=== PATIENT | female | born 1995 | race African-American/Black ===

== ENCOUNTER 2016-08-19 22:11 | Emergency (ER) | payer MEDICAID ==
[2016-08-20 01:11] LABS: ABSOLUTE BASOPHILS # (AUTO) 0.1 10^3/uL (0.0-0.2); ABSOLUTE EOSINOPHILS # (AUTO) 0.4 10^3/uL (0.0-0.6); ABSOLUTE LYMPHOCYTES (AUTO) 3.3 10^3/uL (0.5-4.7); ABSOLUTE MONOCYTES (AUTO) 0.6 10^3/uL (0.1-1.4); ABSOLUTE NEUT (AUTO) 4.1 10^3/uL (1.7-8.2); BASOPHILS % (AUTO) 1.1 % (0-2); EOSINOPHILS % (AUTO) 4.7 % (0-6); HEMATOCRIT 43.5 % (36.0-47.0); HEMOGLOBIN 14.3 g/dL (12.0-15.5); HGB HCT DIFFERENCE -0.6; LYMPHOCYTES % (AUTO) 39.2 % (13-45); MEAN CORPUSCULAR HEMOGLOBIN 28.1 pg (27.0-33.4); MEAN CORPUSCULAR HGB CONC 32.7 g/dL (32.0-36.0); MEAN CORPUSCULAR VOLUME 86 fl (80-97); MONOCYTES % (AUTO) 6.7 % (3-13); RED BLOOD COUNT 5.07 10^6/uL (3.72-5.28); RED CELL DISTRIBUTION WIDTH 13.1 % (11.5-14.0); SEGMENTED NEUTROPHILS % (AUTO) 48.3 % (42-78); WHITE BLOOD COUNT 8.5 10^3/uL (4.0-10.5)
[2016-08-20 01:29] LABS: BILIRUBIN,URINE NEGATIVE (NEGATIVE); GLUCOSE, URINE NEGATIVE (NEGATIVE); KETONES,URINE NEGATIVE (NEGATIVE); LEUKOCYTE ESTERASE,URINE SMALL (NEGATIVE); NITRITE,URINE NEGATIVE (NEGATIVE); PROTEIN,URINE NEGATIVE (NEGATIVE); UROBILINOGEN,URINE NEGATIVE mg/dL (<2.0)
[2016-08-20 01:30] LABS: APPEARANCE,URINE HAZY; URINE SPECIFIC GRAVITY 1.019
--- NOTE | 2016-08-20 04:52 | ER Document Report ---
ED GI/ - General Mode of Arrival: Ambulatory Information source: Patient TRAVEL OUTSIDE OF THE [place] IN LAST 30 DAYS: No - HPI Patient complains to provider of: Abdominal pain Associated symptoms: Other - See above <NIGEL MEYER - Last Filed: 08/20/16 04:59> <CHRYSTALJULIET JORGE - Last Filed: 08/20/16 05:47> - General Chief Complaint: Abdominal Pain Stated Complaint: ABDOMINAL PAIN Notes: Patient is a 20 year old female, 5 weeks , who presents to the emergency department complaining of abdominal pain. Patient also reports vaginal bleeding. Patient states she has had a tubal on her left side which she took Trexall for. Patient only recently found out that she was . (NIGEL MEYER) - Related Data Allergies/Adverse Reactions: promethazine [From Phenergan] Allergy (Verified 03/26/16 03:06) Past Medical History - General Information source: Patient - Social History Smoking Status: Unknown if Ever Smoked Family History: Reviewed & Not Pertinent Patient has suicidal ideation: No Patient has homicidal ideation: No - Past Medical History Cardiac Medical History: Reports: Hx Hypertension - GESTATIONAL Neurological Medical History: Reports: Hx Migraine GI Medical History: Reports: Hx Gastroesophageal Reflux Disease Psychiatric Medical History: Reports: Hx Depression Past Surgical History: Reports: Hx Appendectomy - 2009 - Immunizations Immunizations up to date: Yes Hx Diphtheria, Pertussis, Tetanus Vaccination: No <NIGEL MEYER - Last Filed: 08/20/16 04:59> Review of Systems - Review of Systems Constitutional: No symptoms reported EENT: No symptoms reported Cardiovascular: No symptoms reported Respiratory: No symptoms reported Gastrointestinal: See HPI, Abdominal pain Genitourinary: No symptoms reported Female Genitourinary: See HPI, Vaginal bleeding Musculoskeletal: No symptoms reported Skin: No symptoms reported Hematologic/Lymphatic: No symptoms reported Neurological/Psychological: No symptoms reported -: Yes All other systems reviewed and negative <NIGEL MEYER - Last Filed: 08/20/16 04:59> Physical Exam - Vital signs Interpretation: Normal - General General appearance: Appears well, Alert - HEENT Head: Normocephalic, Atraumatic - Respiratory Respiratory status: No respiratory distress Chest status: Nontender Breath sounds: Normal Chest palpation: Normal - Cardiovascular Rhythm: Regular Heart sounds: Normal auscultation Murmur: No - Abdominal Inspection: Normal Distension: No distension Bowel sounds: Normal Tenderness: Tender - Suprapubic tenderness to palpation Organomegaly: No organomegaly - Extremities General upper extremity: Normal inspection General lower extremity: Normal inspection - Neurological Neuro grossly intact: Yes Cognition: Normal Orientation: AAOx4 [place] Coma Scale Eye Opening: Spontaneous [place] Coma Scale Verbal: Oriented [place] Coma Scale Motor: Obeys Commands Veda Coma Scale Total: 15 Speech: Normal - Psychological Associated symptoms: Normal affect, Normal mood - Skin Skin Temperature: Warm Skin Moisture: Dry Skin Color: Normal <NIGEL MEYER - Last Filed: 08/20/16 04:59> Course - Laboratory Result Diagrams: 08/20/16 00:53 <NIGEL MEYER - Last Filed: 08/20/16 04:59> - Laboratory Result Diagrams: 08/20/16 00:53 - Diagnostic Test Radiology reviewed: Reports reviewed <JULIET JARRELL - Last Filed: 08/20/16 05:47> - Re-evaluation Re-evalutation: 08/20/16 Patient with intrauterine at 5 weeks and 1 day. Patient with no pain or bleeding at this time. Vitals are stable. Follow-up with [facility]. Return if any worsening or concerning symptoms. (JULIET JARRELL) - Vital Signs Vital signs: Temp Pulse Resp BP Pulse Ox 98.7 F 62 14 122/62 100 08/20/16 05:32 08/20/16 05:32 08/20/16 05:32 08/20/16 05:32 08/20/16 05:32 (NIGEL MEYER) (JULIET JARRELL) - Laboratory Laboratory results interpreted by me: 08/20/16 08/20/16 00:53 00:53 Beta HCG, Quant 1467.60 H Ur Leukocyte Esterase SMALL H Urine Ascorbic Acid 40 H (NIGEL MEYER) (JULIET JARRELL) Discharge <NIGEL MEYER - Last Filed: 08/20/16 04:59> <JULIET JARRELL - Last Filed: 08/20/16 05:47> - Discharge Clinical Impression: Qualifiers: Weeks of gestation: less than 8 weeks Qualified Code(s): Z3A.01 - Less than 8 weeks gestation of Condition: Stable Disposition: HOME, SELF-CARE Instructions: ([facility]), Pelvic Pain in ([facility]) Scribe Attestation: 08/20/16 05:46 I personally performed the services described in the documentation, reviewed and edited the documentation which was dictated to the scribe in my presence, and it accurately records my words and actions. (JULIET JARRELL) Scribe Documentation - Scribe Written by Prashant:: prashant Mallory, 08/20/16, 0503 acting as scribe for :: Chrystal <NIGEL MEYER - Last Filed: 08/20/16 04:59>
[2016-08-20 05:32] VITALS: BP 122/62
== END 2016-08-20 05:31 | disposition home or self-care (01) ==
LOC: ER 22:11
DX: O26.91 Pregnancy related conditions, unspecified, first trimester (principal); R10.9 Unspecified abdominal pain; Z3A.01 Less than 8 weeks gestation of pregnancy
CPT/HCPCS: 36415; 76817; 81001; 84702; 85025; 86900; 86901; 93976; 99284

== ENCOUNTER 2016-08-28 20:26 | Emergency (ER) | payer MEDICAID ==
[2016-08-28] MEDS ORDERED: IBUPROFEN 800 MG TABLET PO ONE (21:10)
[2016-08-28] MEDS ORDERED: ONDANSETRON 4 MG TAB.RAPDIS PO ONE (21:10)
--- NOTE | 2016-08-28 21:12 | ER Document Report ---
ED Medical Screen (RME) - General Stated Complaint: COUGH,SORE THROAT Mode of Arrival: Wheelchair Information source: Patient Notes: Patient presents actively vomiting. She reports body aches vomiting for the past 3 days. also complains a sore throat and feels like she's having trouble breathing. Respiratory rate even and unlabored. She reports she's been able to drink apple juice. Did not receive flu vaccine. TRAVEL OUTSIDE OF THE [place] IN LAST 30 DAYS: No - Related Data Allergies/Adverse Reactions: promethazine [From Phenergan] Allergy (Verified 08/28/16 21:13) Past Medical History - Past Medical History Cardiac Medical History: Reports: Hx Hypertension - GESTATIONAL Neurological Medical History: Reports: Hx Migraine Renal/ Medical History: Denies: Hx Peritoneal Dialysis GI Medical History: Reports: Hx Gastroesophageal Reflux Disease Psychiatric Medical History: Reports: Hx Depression Past Surgical History: Reports: Hx Appendectomy - 2009 - Immunizations Immunizations up to date: Yes Hx Diphtheria, Pertussis, Tetanus Vaccination: No Physical Exam - Vital signs Vitals: Temp Pulse Resp BP Pulse Ox 99.2 F 100 16 122/62 98 08/28/16 21:11 08/28/16 21:11 08/28/16 21:11 08/28/16 21:11 08/28/16 21:11 Course - Vital Signs Vital signs: Temp Pulse Resp BP Pulse Ox 99.2 F 100 16 122/62 98 08/28/16 21:11 08/28/16 21:11 08/28/16 21:11 08/28/16 21:11 08/28/16 21:11
[2016-08-28 21:43] LABS: ABSOLUTE LYMPHOCYTES (AUTO) 0.5 10^3/uL (0.5-4.7); ABSOLUTE MONOCYTES (AUTO) 0.7 10^3/uL (0.1-1.4); ABSOLUTE NEUT (AUTO) 6.7 10^3/uL (1.7-8.2); BASOPHILS % (AUTO) 0.5 % (0-2); EOSINOPHILS % (AUTO) 0.5 % (0-6); HEMATOCRIT 42.8 % (36.0-47.0); HEMOGLOBIN 14.5 g/dL (12.0-15.5); HGB HCT DIFFERENCE 0.7; LYMPHOCYTES % (AUTO) 6.8 % (13-45); MEAN CORPUSCULAR HEMOGLOBIN 28.7 pg (27.0-33.4); MEAN CORPUSCULAR HGB CONC 33.8 g/dL (32.0-36.0); MEAN CORPUSCULAR VOLUME 85 fl (80-97); MONOCYTES % (AUTO) 8.3 % (3-13); RED BLOOD COUNT 5.04 10^6/uL (3.72-5.28); RED CELL DISTRIBUTION WIDTH 13.2 % (11.5-14.0); SEGMENTED NEUTROPHILS % (AUTO) 83.9 % (42-78); WHITE BLOOD COUNT 7.9 10^3/uL (4.0-10.5)
[2016-08-28 22:04] LABS: ALANINE AMINOTRANSFERASE 22 U/L (9-52); ALBUMIN 4.8 g/dL (3.5-5.0); ALKALINE PHOSPHATASE 95 U/L (38-126); ANION GAP 18 (5-19); ASPARTATE AMINO TRANSFERASE 23 U/L (14-36); BILIRUBIN,TOTAL 0.6 mg/dL (0.2-1.3); BLOOD UREA NITROGEN 8 mg/dL (7-20); CALCIUM 10.5 mg/dL (8.4-10.2); CARBON DIOXIDE 18 mmol/L (22-30); CHLORIDE 103 mmol/L (98-107); CREATININE RESULT 0.94 mg/dL (0.52-1.25); GLUCOSE 117 mg/dL (75-110); POTASSIUM 3.8 mmol/L (3.6-5.0); SODIUM 139.1 mmol/L (137-145); TOTAL PROTEIN 7.9 g/dL (6.3-8.2)
--- NOTE | 2016-08-29 00:53 | ER Document Report ---
ED General - General Chief Complaint: Flu Symptoms Stated Complaint: COUGH,SORE THROAT Mode of Arrival: Wheelchair Notes: Patient is a 20-year-old female currently approximately 6 weeks who presents with 2 days of fever, cough, nausea and vomiting. She is here with her child who has the same symptoms. The patient did not receive a flu vaccine this year. Denies history of similar symptoms in the past. Has been able to tolerate oral intake. Denies that anything improves or worsens or symptoms. She has not seen her primary care doctor regarding today's concerns. Denies any vaginal bleeding, discharge or dysuria. TRAVEL OUTSIDE OF THE [place] IN LAST 30 DAYS: No - Related Data Allergies/Adverse Reactions: promethazine [From Phenergan] Allergy (Verified 08/28/16 21:13) Past Medical History - General Information source: Patient - Social History Smoking Status: Never Smoker Chew tobacco use (# tins/day): No Frequency of alcohol use: None Drug Abuse: None Lives with: Family Family History: Reviewed & Not Pertinent Patient has suicidal ideation: No Patient has homicidal ideation: No - Past Medical History Cardiac Medical History: Reports: Hx Hypertension - GESTATIONAL Neurological Medical History: Reports: Hx Migraine Renal/ Medical History: Denies: Hx Peritoneal Dialysis GI Medical History: Reports: Hx Gastroesophageal Reflux Disease Psychiatric Medical History: Reports: Hx Depression Past Surgical History: Reports: Hx Appendectomy - 2010 - Immunizations Immunizations up to date: Yes Hx Diphtheria, Pertussis, Tetanus Vaccination: No Review of Systems - Review of Systems Notes: Constitutional: Positive for fever. HENT: Positive for sore throat. Eyes: Negative for visual changes. Cardiovascular: Negative for chest pain. Respiratory: Negative for shortness of breath. Positive for cough Gastrointestinal: Negative for abdominal pain, positive for vomiting Genitourinary: Negative for dysuria. Musculoskeletal: Negative for back pain. Skin: Negative for rash. Neurological: Negative for headaches, weakness or numbness. 10 point ROS negative except as marked above and in HPI. Physical Exam - Vital signs Vitals: Temp Pulse Resp BP Pulse Ox 99.2 F 100 16 122/62 98 08/28/16 21:11 08/28/16 21:11 08/28/16 21:11 08/28/16 21:11 08/28/16 21:11 Interpretation: Normal Notes: PHYSICAL EXAMINATION: GENERAL: Well-appearing, well-nourished and in no acute distress. HEAD: Atraumatic, normocephalic. EYES: Pupils equal round and reactive to light, extraocular movements intact, sclera anicteric, conjunctiva are normal. ENT: nares patent, oropharynx clear without exudates. Moist mucous membranes. NECK: Normal range of motion, supple without lymphadenopathy LUNGS: Breath sounds clear to auscultation bilaterally and equal. No wheezes rales or rhonchi. HEART: Regular rate and rhythm without murmurs ABDOMEN: Soft, nontender, normoactive bowel sounds. No guarding, no rebound. No masses appreciated. EXTREMITIES: Normal range of motion, no pitting or edema. No cyanosis. NEUROLOGICAL: No focal neurological deficits. Moves all extremities spontaneously and on command. PSYCH: Normal mood, normal affect. SKIN: Warm, Dry, normal turgor, no rashes or lesions noted. Course - Re-evaluation Re-evalutation: 08/29/16 00:52 Patient presents with cough, vomiting, diarrhea, and fever at home consistent with a diagnosis of influenza. Influenza testing is positive. Patient is overall well in appearance, in no acute distress. She is in the early stages of but denies any ongoing abdominal pain, vaginal bleeding or discharge. Lung sounds clear. Able to tolerate oral intake without difficulty here in the emergency department. After risks and benefits conversation with the patient regarding the use of Tamiflu, they have elected to use supportive care without Tamiflu based on concerns about lack of efficacy as well as the side effect profile. At this time will discharge with return precautions and follow-up recommendations. Verbal discharge instructions given a the bedside and opportunity for questions given. Medication warnings reviewed. Patient is in agreement with this plan and has verbalized understanding of return precautions and the need for primary care follow-up in the next 24-72 hours. - Vital Signs Vital signs: Temp Pulse Resp BP Pulse Ox 99 F 89 18 104/56 L 96 08/29/16 02:35 08/29/16 02:35 08/29/16 02:35 08/29/16 02:35 08/29/16 02:35 - Laboratory Result Diagrams: 08/28/16 21:25 08/28/16 21:25 Laboratory results interpreted by me: 08/28/16 08/28/16 08/28/16 21:25 21:25 21:25 Seg Neutrophils % 83.9 H Lymphocytes % 6.8 L Carbon Dioxide 18 L Glucose 117 H Calcium 10.5 H Serum HCG, Qual POSITIVE H - Diagnostic Test Radiology reviewed: Image reviewed, Reports reviewed Radiology results interpreted by me: 08/29/16 02:56 Chest x-ray: No acute infiltrate Discharge - Discharge Clinical Impression: Influenza Condition: Good Disposition: HOME, SELF-CARE Additional Instructions: You have influenza. There is no treatment that is effective for this diagnosis other than supportive care at home. This includes drinking plenty of fluids, using Tylenol or ibuprofen as needed for fever and discomfort, and Zofran as needed for nausea and vomiting. Please follow closely with you primary care physician the next 1-2 days regarding this diagnosis. Return to the emergency department immediately if you began to have persistent vomiting prevents you from being able to keep fluids down for more than 12 hours, you pass out, you began having difficulty breathing, you become confused, or you have any other symptoms that are worrisome to you. Referrals: ALEJO ZULETA MD [Primary Care Provider] - Follow up as needed
[2016-08-29] MEDS ORDERED: ONDANSETRON ODT 4 MG TAB (6 TAB/DSPK) PO PRN (02:14)
[2016-08-29 02:42] VITALS: BP 104/56
== END 2016-08-29 02:42 | disposition home or self-care (01) ==
LOC: ER 20:26
DX: O99.519 Diseases of the respiratory system complicating pregnancy, unspecified trimester (principal); J11.1 Influenza due to unidentified influenza virus with other respiratory manifestations; O26.899 Other specified pregnancy related conditions, unspecified trimester; R05 Cough; R19.7 Diarrhea, unspecified; R50.9 Fever, unspecified; O21.9 Vomiting of pregnancy, unspecified; Z3A.00 Weeks of gestation of pregnancy not specified; Z88.8 Allergy status to other drugs, medicaments and biological substances
CPT/HCPCS: 99283; 36415; 87070; 87880; 84703; 85025; 80053; 87804; 71020; S0119

== ENCOUNTER 2016-08-31 22:15 | Emergency (ER) | payer MEDICAID ==
[2016-09-01 00:20] LABS: ABSOLUTE EOSINOPHILS # (AUTO) 0.1 10^3/uL (0.0-0.6); ABSOLUTE LYMPHOCYTES (AUTO) 1.6 10^3/uL (0.5-4.7); ABSOLUTE MONOCYTES (AUTO) 0.7 10^3/uL (0.1-1.4); ABSOLUTE NEUT (AUTO) 2.5 10^3/uL (1.7-8.2); BASOPHILS % (AUTO) 0.9 % (0-2); EOSINOPHILS % (AUTO) 1.2 % (0-6); HEMATOCRIT 41.5 % (36.0-47.0); HEMOGLOBIN 13.7 g/dL (12.0-15.5); HGB HCT DIFFERENCE -0.4; LYMPHOCYTES % (AUTO) 32.6 % (13-45); MEAN CORPUSCULAR HEMOGLOBIN 28.2 pg (27.0-33.4); MEAN CORPUSCULAR HGB CONC 33.1 g/dL (32.0-36.0); MEAN CORPUSCULAR VOLUME 85 fl (80-97); MONOCYTES % (AUTO) 14.2 % (3-13); RED BLOOD COUNT 4.88 10^6/uL (3.72-5.28); SEGMENTED NEUTROPHILS % (AUTO) 51.1 % (42-78)
[2016-09-01 00:50] LABS: ALANINE AMINOTRANSFERASE 28 U/L (9-52); ALBUMIN 4.3 g/dL (3.5-5.0); ALKALINE PHOSPHATASE 81 U/L (38-126); ANION GAP 15 (5-19); ASPARTATE AMINO TRANSFERASE 26 U/L (14-36); BILIRUBIN,TOTAL 0.3 mg/dL (0.2-1.3); BLOOD UREA NITROGEN 5 mg/dL (7-20); CALCIUM 9.5 mg/dL (8.4-10.2); CARBON DIOXIDE 22 mmol/L (22-30); CHLORIDE 100 mmol/L (98-107); CREATININE RESULT 0.97 mg/dL (0.52-1.25); GLUCOSE 90 mg/dL (75-110); POTASSIUM 3.8 mmol/L (3.6-5.0); SODIUM 137.1 mmol/L (137-145); TOTAL PROTEIN 7.2 g/dL (6.3-8.2)
[2016-09-01] MEDS ORDERED: NORMAL SALINE 1000 ML 1,000 ML IV ONE ×2 (00:57→02:53)
[2016-09-01] MEDS ORDERED: ACETAMINOPHEN 325 MG TABLET PO ONE (00:58)
--- NOTE | 2016-09-01 01:02 | ER Document Report ---
ED Flu Like - General Chief Complaint: Flu Symptoms Stated Complaint: FEVER, WEAKNESS Notes: Patient is a 20-year-old female that comes emergency department for chief complaint of cough, body aches, sore throat, fevers. Symptoms started at approximately Saturday of this week, she was seen on Saturday and diagnosed with influenza. She states she is dehydrated and has had little to drink today, she is almost out of Zofran that she was taking at home, she states that when she coughs her belly hurts, she states her worst symptom is her dry cough and body pain. She denies any vaginal bleeding. Patient is 6 weeks , patient denies any daily medications other than [id number] medication and Zofran. TRAVEL OUTSIDE OF THE [place] IN LAST 30 DAYS: No - Related Data Allergies/Adverse Reactions: promethazine [From Phenergan] Allergy (Verified 08/31/16 23:18) Past Medical History - General Information source: Patient - Social History Smoking Status: Former Smoker Frequency of alcohol use: None Drug Abuse: None Lives with: Family Family History: Reviewed & Not Pertinent - Past Medical History Cardiac Medical History: Reports: Hx Hypertension - GESTATIONAL Neurological Medical History: Reports: Hx Migraine Renal/ Medical History: Denies: Hx Peritoneal Dialysis GI Medical History: Reports: Hx Gastroesophageal Reflux Disease Psychiatric Medical History: Reports: Hx Depression Past Surgical History: Reports: Hx Appendectomy - 2010 - Immunizations Immunizations up to date: Yes Hx Diphtheria, Pertussis, Tetanus Vaccination: No Review of Systems - Review of Systems Constitutional: See HPI EENT: See HPI Cardiovascular: No symptoms reported Respiratory: See HPI Gastrointestinal: See HPI Genitourinary: No symptoms reported Female Genitourinary: See HPI Musculoskeletal: No symptoms reported Skin: No symptoms reported Hematologic/Lymphatic: No symptoms reported Neurological/Psychological: No symptoms reported Physical Exam - Vital signs Vitals: Temp Pulse Resp BP Pulse Ox 98.9 F 77 18 112/65 98 08/31/16 22:27 08/31/16 22:27 08/31/16 22:27 08/31/16 22:27 08/31/16 22:27 Interpretation: Normal - General General appearance: Appears well, Alert In distress: None - HEENT Head: Normocephalic, Atraumatic Eyes: Normal Conjunctiva: Normal Extraocular movements intact: Yes Eyelashes: Normal Pupils: PERRL Sinus: Normal Nasal: Normal Mouth/Lips: Normal Mucous membranes: Dry Pharynx: Normal Neck: Normal - Respiratory Respiratory status: No respiratory distress. No: Respiratory distress, Tachypnea Chest status: Tender - Mild generalized tenderness over the anterior chest wall Breath sounds: Normal, Nonproductive cough - Occasional nonproductive cough. No : Decreased air movement, Productive cough, Wheezing Chest palpation: Normal - Cardiovascular Rhythm: Regular. No: Tachycardia Heart sounds: Normal auscultation, S1 appreciated, S2 appreciated Murmur: No - Abdominal Inspection: Normal Distension: No distension Bowel sounds: Normal Tenderness: Nontender - Completely soft and nontender abdomen. No: Tender, Guarding Organomegaly: No organomegaly - Back Back: Normal, Nontender. No: Tender, CVA tenderness - Extremities General upper extremity: Normal inspection, Nontender, Normal color, Normal ROM , Normal temperature General lower extremity: Normal inspection, Nontender, Normal color, Normal ROM , Normal temperature, Normal weight bearing. No: Sam's sign - Neurological Neuro grossly intact: Yes Cognition: Normal Orientation: AAOx4 [place] Coma Scale Eye Opening: Spontaneous [place] Coma Scale Verbal: Oriented [place] Coma Scale Motor: Obeys Commands Veda Coma Scale Total: 15 Speech: Normal Motor strength normal: LUE, RUE, LLE, RLE Sensory: Normal - Psychological Associated symptoms: Normal affect, Normal mood - Skin Skin Temperature: Warm Skin Moisture: Dry Skin Color: Normal Course - Re-evaluation Re-evalutation: CBC, chemistry unremarkable, urine shows evidence of dehydration with 80 ketones , elevated specific gravity. Patient also has nitrates, leukocyte esterase, white blood cells. Urine sent for culture, patient will be treated with Keflex based on her status, patient given 2 L rehydration, afterwards patient eating and drinking, states she feels much improved, patient is nontoxic in appearance. No tachycardia or hypotension. No fever. Patient is still recovering from influenza diagnosed a couple of days ago. Patient states she' ll follow closely with her SITE INSPECTOR, discussed return precautions in detail, patient states understanding and agreement. - Vital Signs Vital signs: Temp Pulse Resp BP Pulse Ox 97.9 F 56 L 16 120/67 100 09/01/16 05:38 09/01/16 05:38 09/01/16 05:38 09/01/16 05:38 09/01/16 05:38 - Laboratory Result Diagrams: 08/31/16 23:52 08/31/16 23:52 Laboratory results interpreted by me: 08/31/16 08/31/16 09/01/16 23:52 23:52 02:22 Monocytes % 14.2 H BUN 5 L Beta HCG, Quant 68148.00 H Urine Ketones 80 H Urine Nitrite POSITIVE H Ur Leukocyte Esterase TRACE H Urine Ascorbic Acid 40 H Discharge - Discharge Clinical Impression: Influenza A, Dehydration, Cough Condition: Stable Disposition: HOME, SELF-CARE Additional Instructions: Your workup indicates a developing urinary tract infection along with dehydration, no other abnormalities are noted. Take Tylenol for fever and body pains, take Zofran as prescribed, take Keflex antibiotic to treat urinary tract infection. Follow up with your provider. Return to the emergency department for any concerning worsening symptoms including uncontrollable vomiting, vaginal bleeding or severe abdominal pain, or any other concerning symptoms. Prescriptions: Cephalexin Monohydrate [Keflex 500 mg Capsule] 500 mg PO BID #10 capsule Ondansetron [Zofran Odt 4 mg Tablet] 1 - 2 tab PO Q4H PRN #30 tab.rapdis PRN Reason: For Nausea/Vomiting
[2016-09-01 02:39] LABS: APPEARANCE,URINE SLIGHTLY-CLOUDY; BILIRUBIN,URINE NEGATIVE (NEGATIVE); GLUCOSE, URINE NEGATIVE (NEGATIVE); KETONES,URINE 80 mg/dL (NEGATIVE); LEUKOCYTE ESTERASE,URINE TRACE (NEGATIVE); NITRITE,URINE POSITIVE (NEGATIVE); PROTEIN,URINE NEGATIVE (NEGATIVE); UROBILINOGEN,URINE NEGATIVE mg/dL (<2.0)
[2016-09-01] MEDS ORDERED: CEPHALEXIN 500 MG CAPSULE PO ONE (02:53)
[2016-09-01] MEDS ORDERED: ONDANSETRON ODT 4 MG TAB (6 TAB/DSPK) PO PRN (03:05)
[2016-09-01 05:40] VITALS: BP 120/67
== END 2016-09-01 05:38 | disposition home or self-care (01) ==
LOC: ER 22:15
DX: O99.511 Diseases of the respiratory system complicating pregnancy, first trimester (principal); J11.1 Influenza due to unidentified influenza virus with other respiratory manifestations; O26.891 Other specified pregnancy related conditions, first trimester; R05 Cough; R50.9 Fever, unspecified; R10.9 Unspecified abdominal pain; O99.281 Endocrine, nutritional and metabolic diseases complicating pregnancy, first trimester; E86.0 Dehydration; Z3A.01 Less than 8 weeks gestation of pregnancy
CPT/HCPCS: 99283; 96360; 96361; 36415; 87086; 84702; 85025; 87088; 80053; 81001; 87186; J3490; J7030

== ENCOUNTER 2016-09-05 23:26 | Emergency (ER) | payer MEDICAID ==
[2016-09-05] MEDS ORDERED: NORMAL SALINE 1000 ML 1,000 ML IV ONE (23:41)
[2016-09-05] MEDS ORDERED: ONDANSETRON HCL INJ/PF 4 MG/2 ML SDV IV ONE (23:41)
[2016-09-05] MEDS ORDERED: ONDANSETRON 4 MG TAB.RAPDIS ONE (23:53)
[2016-09-06 00:04] LABS: ABSOLUTE LYMPHOCYTES (AUTO) 2.7 10^3/uL (0.5-4.7); ABSOLUTE MONOCYTES (AUTO) 0.6 10^3/uL (0.1-1.4); ABSOLUTE NEUT (AUTO) 4.9 10^3/uL (1.7-8.2); BASOPHILS % (AUTO) 0.4 % (0-2); EOSINOPHILS % (AUTO) 0.5 % (0-6); HEMOGLOBIN 15.4 g/dL (12.0-15.5); HGB HCT DIFFERENCE 0.2; LYMPHOCYTES % (AUTO) 32.9 % (13-45); MEAN CORPUSCULAR HEMOGLOBIN 28.1 pg (27.0-33.4); MEAN CORPUSCULAR HGB CONC 33.5 g/dL (32.0-36.0); MEAN CORPUSCULAR VOLUME 84 fl (80-97); RED BLOOD COUNT 5.48 10^6/uL (3.72-5.28); RED CELL DISTRIBUTION WIDTH 12.8 % (11.5-14.0); SEGMENTED NEUTROPHILS % (AUTO) 59.2 % (42-78); WHITE BLOOD COUNT 8.3 10^3/uL (4.0-10.5)
[2016-09-06 00:10] LABS: APPEARANCE,URINE CLOUDY; BILIRUBIN,URINE NEGATIVE (NEGATIVE); GLUCOSE, URINE NEGATIVE (NEGATIVE); KETONES,URINE 80 mg/dL (NEGATIVE); LEUKOCYTE ESTERASE,URINE SMALL (NEGATIVE); NITRITE,URINE NEGATIVE (NEGATIVE); PROTEIN,URINE 100 mg/dL (NEGATIVE); URINE SPECIFIC GRAVITY 1.035; UROBILINOGEN,URINE NEGATIVE mg/dL (<2.0)
[2016-09-06 00:17] LABS: ANION GAP 16 (5-19); ASPARTATE AMINO TRANSFERASE 24 U/L (14-36); BILIRUBIN,TOTAL 0.9 mg/dL (0.2-1.3); BLOOD UREA NITROGEN 11 mg/dL (7-20); CALCIUM 10.8 mg/dL (8.4-10.2); CARBON DIOXIDE 25 mmol/L (22-30); CHLORIDE 101 mmol/L (98-107); CREATININE RESULT 0.89 mg/dL (0.52-1.25); GLUCOSE 99 mg/dL (75-110); SODIUM 141.5 mmol/L (137-145); TOTAL PROTEIN 8.6 g/dL (6.3-8.2)
[2016-09-06 00:18] LABS: ALANINE AMINOTRANSFERASE 20 U/L (9-52); ALKALINE PHOSPHATASE 75 U/L (38-126); POTASSIUM 4.3 mmol/L (3.6-5.0)
[2016-09-06] MEDS ORDERED: METOCLOPRAMIDE HCL INJ/PF 10 MG/2 ML SDV IV ONE ×2 (02:47→07:22)
--- NOTE | 2016-09-06 02:54 | ER Document Report ---
ED General - General TRAVEL OUTSIDE OF THE [place] IN LAST 30 DAYS: No <PAULINA HOWELL - Last Filed: 09/06/16 06:53> <JONNATHAN GASPAR - Last Filed: 09/06/16 08:07> - General Chief Complaint: Nausea/Vomiting Stated Complaint: VOMITING Notes: Patient is a 21-year-old female presents with complaints of recurrent vomiting. She's been here 3 times for same symptoms. She 7 weeks . This is not her first . She says that she's been on Zofran but is not helping and she continues of vomiting despite Zofran. She's not holding down liquids or food. On her previous visit she mentioned possible fevers but now she denies any fevers. No runny nose or congestion. Some body aches and upper abdominal pain. No diarrhea. (PAULINA HOWELL) - Related Data Allergies/Adverse Reactions: promethazine [From Phenergan] Allergy (Verified 08/31/16 23:18) Past Medical History - Social History Smoking Status: Never Smoker Chew tobacco use (# tins/day): No Frequency of alcohol use: None Drug Abuse: None Family History: Reviewed & Not Pertinent Patient has suicidal ideation: No Patient has homicidal ideation: No - Past Medical History Cardiac Medical History: Reports: Hx Hypertension - GESTATIONAL Neurological Medical History: Reports: Hx Migraine Renal/ Medical History: Denies: Hx Peritoneal Dialysis GI Medical History: Reports: Hx Gastroesophageal Reflux Disease Psychiatric Medical History: Reports: Hx Depression Past Surgical History: Reports: Hx Appendectomy - 2010 - Immunizations Immunizations up to date: Yes Hx Diphtheria, Pertussis, Tetanus Vaccination: No <PAULINA HOWELL - Last Filed: 09/06/16 06:53> Review of Systems <PAULINA HOWELL - Last Filed: 09/06/16 06:53> <JONNATHAN GASPAR - Last Filed: 09/06/16 08:07> - Review of Systems Notes: My Normal Review Basic REVIEW OF SYSTEMS: CONSTITUTIONAL : Denies fever, chills, or sweats. Denies recent illness. EENT: Denies eye, ear, throat, or mouth pain or symptoms. Denies nasal or sinus congestion. RESPIRATORY: Denies cough, cold, or chest congestion. Denies shortness of breath, difficulty breathing, or wheezing. GASTROINTESTINAL: Some abdominal pain. intractable vomiting. GENITOURINARY: Denies difficulty urinating, painful urination, burning, frequency, or blood in urine. FEMALE GENITOURINARY: Denies vaginal bleeding, abnormal or irregular periods. currently MUSCULOSKELETAL: Denies neck or back pain or joint pain or swelling. SKIN: Denies rash or skin lesions. NEUROLOGICAL: Denies altered mental status or loss of consciousness. Denies headache. Denies weakness or paralysis or loss of use of either side. Denies problems with gait or speech. Denies sensory or motor loss. ALL OTHER SYSTEMS REVIEWED AND NEGATIVE. (PAULINA HOWELL) Physical Exam <PAULINA HOWELL - Last Filed: 09/06/16 06:53> <JONNATHAN GASPAR - Last Filed: 09/06/16 08:07> - Vital signs Vitals: Temp Pulse Resp BP Pulse Ox 98.4 F 70 17 110/62 99 09/06/16 06:54 09/06/16 06:54 09/06/16 06:54 09/06/16 06:54 09/06/16 06:54 - Notes Notes: General Appearance: Well nourished, alert, cooperative, no acute distress, mild obvious discomfort. Vitals: reviewed, See vital signs table. Head: no swelling or tenderness to the head Eyes: PERRL, EOMI, Conjuctiva clear Mouth: No decreasd moisture Neck: Supple, no neck tenderness, No thyromegaly Lungs: No wheezing, No rales, No rhonci, No accessory muscle use, good air exchange bilaterally. Heart: Normal rate, Regular rythm, No murmur, no rub Abdomen: Normal BS, soft, No rigidity, mild diffuse abdominal tenderness, No guarding, no rebound, no abdominal masses, no organomegaly Extremities: strength 5/5 in all extremities, good pulses in all extremities, no swelling or tenderness in the extremities, no edema. Skin: warm, dry, appropriate color, no rash Neuro: speech clear, oriented x 3, normal affect, responds appropriately to questions. (PAULINA HOWELL) Course - Laboratory Result Diagrams: 09/05/16 23:39 09/05/16 23:39 <PAULINA HOWELL - Last Filed: 09/06/16 06:53> - Laboratory Result Diagrams: 09/05/16 23:39 09/05/16 23:39 - Diagnostic Test Radiology reviewed: Image reviewed, Reports reviewed <JONNATHAN GASPAR - Last Filed: 09/06/16 08:07> - Re-evaluation Re-evalutation: 09/06/16 06:40 Patient's nausea is much improved. I was reviewing her previous ultrasounds. Her last ultrasound actually did not show an obvious IUP and did recommend a repeat. At this time I think it's appropriate to obtain a repeat ultrasound being the patient does have some abdominal pain. Patient is agreeable to this. Ultrasound and hCG have been ordered. (PAULINA HOWELL) 09/06/16 08:07 Ultrasound is consistent with the patient's presentation, however a subchorionic hemorrhage is noted. Patient has been made aware of this as well as threatened miscarriage. She does not have any vaginal bleeding at this time however has been instructed that she may have a threatened miscarriage in the future After performing a Medical Screening Examination, I estimate there is LOW risk for ACUTE APPENDICITIS, BOWEL OBSTRUCTION, ACUTE CHOLECYSTITIS, PERFORATED DIVERTICULITIS, INCARCERATED HERNIA, PANCREATITIS, PELVIC INFLAMMATORY DISEASE, PERFORATED ULCER, ECTOPIC , or TUBO-OVARIAN ABSCESS, thus I consider the discharge disposition reasonable. Also, there is no evidence or peritonitis , sepsis, or toxicity. The patient and I have discussed the diagnosis and risks , and we agree with discharging home with close follow-up with the understanding that symptoms and presentations can change. We also discussed returning to the Emergency Department immediately if new or worsening symptoms occur. We have discussed the symptoms which are most concerning (e.g., bloody stool, fever, changing or worsening pain, vomiting) that necessitate immediate return. (JONNATHAN GASPAR) - Vital Signs Vital signs: Temp Pulse Resp BP Pulse Ox 98.4 F 70 17 110/62 99 09/06/16 06:54 09/06/16 06:54 09/06/16 06:54 09/06/16 06:54 09/06/16 06:54 - Laboratory Laboratory results interpreted by me: 09/05/16 09/05/16 09/05/16 23:39 23:39 23:39 RBC 5.48 H Calcium 10.8 H Total Protein 8.6 H Beta HCG, Quant Urine Protein 100 H Urine Ketones 80 H Ur Leukocyte Esterase SMALL H Urine Ascorbic Acid 40 H 09/06/16 04:53 RBC Calcium Total Protein Beta HCG, Quant 056672.00 H Urine Protein Urine Ketones Ur Leukocyte Esterase Urine Ascorbic Acid Discharge <PAULINA HOWELL - Last Filed: 09/06/16 06:53> <JONNATHAN GASPAR - Last Filed: 09/06/16 08:07> - Discharge Clinical Impression: Hyperemesis gravidarum Abdominal pain Qualifiers: Abdominal location: epigastric Qualified Code(s): R10.13 - Epigastric pain Condition: Good Disposition: HOME, SELF-CARE Additional Instructions: Please take the prescribed medications for your nausea and vomiting. 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 Please return to the ER if you have worsening pain, recurrent vomiting, or any vaginal bleeding. Prescriptions: Doxylamine/Pyridoxine HCl [Josephine Pineda 10-10 mg Tablet] 1 each PO TID #30 tablet. Metoclopramide HCl [Reglan 10 mg Tablet] 1 tab PO ASDIR PRN #25 tablet PRN Reason:
[2016-09-06] MEDS ORDERED: NORMAL SALINE 1000 ML 1,000 ML IV ONE (04:28)
[2016-09-06] MEDS ORDERED: PYRIDOXINE HCL INJ 100 MG/1 ML VIAL IM ONE (05:45)
[2016-09-06] MEDS ORDERED: PYRIDOXINE HCL INJ 100 MG/1 ML VIAL ONE (06:30)
[2016-09-06] MEDS ORDERED: ACETAMINOPHEN 325 MG TABLET PO ONE (07:51)
[2016-09-06 08:20] VITALS: BP 114/63
== END 2016-09-06 08:20 | disposition home or self-care (01) ==
LOC: ER 23:26
DX: O21.0 Mild hyperemesis gravidarum (principal); R10.13 Epigastric pain; Z3A.01 Less than 8 weeks gestation of pregnancy; R52 Pain, unspecified; R10.10 Upper abdominal pain, unspecified
CPT/HCPCS: 96376; 99284; 96372; 96361; 96374; 96375; 36415; 84702; 83735; 85025; 80053; 81001; 76817; 93976; J3490; J2765; J3415; J2405; J7030; S0119

== ENCOUNTER 2016-09-08 21:16 | Inpatient (IN) | payer MEDICAID ==
[2016-09-08] MEDS ORDERED: NORMAL SALINE 1000 ML 2,000 ML IV ONE (22:02)
[2016-09-08] MEDS ORDERED: FAMOTIDINE INJ/PF 20 MG/2 ML SDV IV ONE (22:05)
[2016-09-08] MEDS ORDERED: DIPHENHYDRAMINE HCL 50 MG/ML VIAL IV ONE (22:06)
[2016-09-08] MEDS ORDERED: METOCLOPRAMIDE HCL INJ/PF 10 MG/2 ML SDV IV ONE (22:06)
--- NOTE | 2016-09-08 22:09 | ER Document Report ---
ED Medical Screen (RME) - General Chief Complaint: Abdominal Pain Stated Complaint: ABDOMINAL PAIN Time seen by provider: 22:07 Mode of Arrival: Medic Information source: Patient Notes: 21-year-old G3 female 7 weeks has excessive vomiting with low abdominal pain. She was seen in the emergency department on and the ultrasound showed a bleed around the . She is now spotting. sHe is unable to swallow her spit. She looks dehydrated. Zofran 4 mg has been given IV on EMS. I have greeted and performed a rapid initial assessment of this patient. A comprehensive ED assessment, evaluation of the patient, analysis of test results , and completion of the medical decision making process will be conducted by additional ED providers. TRAVEL OUTSIDE OF THE [place] IN LAST 30 DAYS: No - Related Data Allergies/Adverse Reactions: promethazine [From Phenergan] Allergy (Verified 09/08/16 22:02) Past Medical History - Past Medical History Cardiac Medical History: Reports: Hx Hypertension - GESTATIONAL Neurological Medical History: Reports: Hx Migraine Renal/ Medical History: Denies: Hx Peritoneal Dialysis GI Medical History: Reports: Hx Gastroesophageal Reflux Disease Psychiatric Medical History: Reports: Hx Depression Past Surgical History: Reports: Hx Appendectomy - 2009 - Immunizations Immunizations up to date: Yes Hx Diphtheria, Pertussis, Tetanus Vaccination: No Physical Exam - Vital signs Vitals: Temp Pulse Resp BP Pulse Ox 98.2 F 62 16 98/71 L 99 09/08/16 21:36 09/08/16 21:36 09/08/16 21:36 09/08/16 21:36 09/08/16 21:36 Course - Vital Signs Vital signs: Temp Pulse Resp BP Pulse Ox 98.2 F 62 16 98/71 L 99 09/08/16 21:36 09/08/16 21:36 09/08/16 21:36 09/08/16 21:36 09/08/16 21:36
--- NOTE | 2016-09-08 22:56 | ER Document Report ---
ED General - General Chief Complaint: Abdominal Pain Stated Complaint: ABDOMINAL PAIN Mode of Arrival: Medic Notes: Patient is a 21-year-old female presents for complaints of abdominal pain, nausea, vomiting, and some vaginal spotting. She is approximately 7 weeks . This is partially her fourth visit for vomiting during . I saw her just 2 days ago over her admission the patient was feeling some better after Reglan and therefore left. She returns because the Reglan that she's taken home was not working and she's been continuously vomiting. She has abdominal soreness related to all the vomiting. There is diffuse across her abdomen. No focality. Her ultrasound 2 days ago showed that she had a small subchorionic hemorrhage. She denies dysuria. She denies diarrhea. She denies fevers. TRAVEL OUTSIDE OF THE [place] IN LAST 30 DAYS: No - Related Data Allergies/Adverse Reactions: promethazine [From Phenergan] Allergy (Verified 09/08/16 22:02) Past Medical History - General Information source: Patient - Social History Smoking Status: Never Smoker Frequency of alcohol use: None Drug Abuse: None Family History: Reviewed & Not Pertinent - Past Medical History Cardiac Medical History: Reports: Hx Hypertension - GESTATIONAL Neurological Medical History: Reports: Hx Migraine Renal/ Medical History: Denies: Hx Peritoneal Dialysis GI Medical History: Reports: Hx Gastroesophageal Reflux Disease Psychiatric Medical History: Reports: Hx Depression Past Surgical History: Reports: Hx Appendectomy - 2010 - Immunizations Immunizations up to date: Yes Hx Diphtheria, Pertussis, Tetanus Vaccination: No Review of Systems - Review of Systems Notes: My Normal Review Basic REVIEW OF SYSTEMS: CONSTITUTIONAL : Denies fever, chills, or sweats. Denies recent illness. EENT: Denies eye, ear, throat, or mouth pain or symptoms. Denies nasal or sinus congestion. RESPIRATORY: Denies cough, cold, or chest congestion. Denies shortness of breath, difficulty breathing, or wheezing. GASTROINTESTINAL: Some abdominal pain. Recurrent vomiting.. Denies constipation. Last BM: GENITOURINARY: Denies difficulty urinating, painful urination, burning, frequency, or blood in urine. FEMALE GENITOURINARY: Vaginal spotting. Currently MUSCULOSKELETAL: Denies neck or back pain or joint pain or swelling. SKIN: Denies rash or skin lesions.. NEUROLOGICAL: Denies altered mental status or loss of consciousness. Denies headache. Denies weakness or paralysis or loss of use of either side. Denies problems with gait or speech. Denies sensory or motor loss. ALL OTHER SYSTEMS REVIEWED AND NEGATIVE. Physical Exam - Vital signs Vitals: Temp Pulse Resp BP Pulse Ox 98.2 F 62 16 98/71 L 99 09/08/16 21:36 09/08/16 21:36 09/08/16 21:36 09/08/16 21:36 09/08/16 21:36 - Notes Notes: General Appearance: Well nourished, alert, cooperative, no acute distress, no obvious discomfort. Vitals: reviewed, See vital signs table. Head: no swelling or tenderness to the head Eyes: PERRL, EOMI, Conjuctiva clear Mouth: No decreasd moisture Neck: Supple, no neck tenderness, No thyromegaly Lungs: No wheezing, No rales, No rhonci, No accessory muscle use, good air exchange bilaterally. Heart: Normal rate, Regular rythm, No murmur, no rub Abdomen: Normal BS, soft, No rigidity, mild diffuse abdominal tenderness, No guarding, no rebound, no abdominal masses, no organomegaly Extremities: strength 5/5 in all extremities, good pulses in all extremities, no swelling or tenderness in the extremities, no edema. Skin: warm, dry, appropriate color, no rash Neuro: speech clear, oriented x 3, normal affect, responds appropriately to questions. Course - Vital Signs Vital signs: Temp Pulse Resp BP Pulse Ox 98.2 F 62 16 98/71 L 99 09/08/16 21:36 09/08/16 21:36 09/08/16 21:36 09/08/16 21:36 09/08/16 21:36 - Laboratory Result Diagrams: 09/08/16 23:20 09/08/16 23:20 Laboratory results interpreted by me: 09/08/16 09/08/16 23:20 23:20 Potassium 3.1 L Calcium 10.3 H Beta HCG, Quant 988239.00 H Urine Protein 100 H Urine Ketones 80 H Urine Urobilinogen 4.0 H Urine Ascorbic Acid 20 H - Transfer of Care Notes: 09/09/16 02:59 Patient has been to ER several times over last week for recurrent vomiting with her . She did have some spotting but she does have a small subchorionic hemorrhage. She has some diffuse abdominal tenderness. Her abdomen is tender, but soft on exam. She has no other acute findings in her labs other than large amount of ketones as well as hypokalemia. We'll give her some testing done here. Due to her intractable vomiting at home and inability to hold things down and dehydration I feel it is appropiate to admit her to the hospital. I did speak with the claim processing specialist, Dr. Moore, who agrees to admit the patient. Discharge - Discharge Clinical Impression: Hyperemesis gravidarum, Hypokalemia Abdominal pain Qualifiers: Abdominal location: epigastric Qualified Code(s): R10.13 - Epigastric pain Condition: Good Disposition: ADMITTED OBSERVATION Admitting Provider: [facility] Admitted: Post
[2016-09-08 23:50] LABS: ABSOLUTE EOSINOPHILS # (AUTO) 0.1 10^3/uL (0.0-0.6); ABSOLUTE LYMPHOCYTES (AUTO) 2.9 10^3/uL (0.5-4.7); ABSOLUTE MONOCYTES (AUTO) 0.8 10^3/uL (0.1-1.4); ABSOLUTE NEUT (AUTO) 6.4 10^3/uL (1.7-8.2); BASOPHILS % (AUTO) 0.4 % (0-2); HEMATOCRIT 41.7 % (36.0-47.0); HGB HCT DIFFERENCE 0.3; LYMPHOCYTES % (AUTO) 28.7 % (13-45); MEAN CORPUSCULAR HEMOGLOBIN 28.2 pg (27.0-33.4); MEAN CORPUSCULAR HGB CONC 33.7 g/dL (32.0-36.0); MEAN CORPUSCULAR VOLUME 84 fl (80-97); RED BLOOD COUNT 4.99 10^6/uL (3.72-5.28); RED CELL DISTRIBUTION WIDTH 12.8 % (11.5-14.0); SEGMENTED NEUTROPHILS % (AUTO) 61.9 % (42-78); WHITE BLOOD COUNT 10.3 10^3/uL (4.0-10.5)
[2016-09-09 00:08] LABS: APPEARANCE,URINE CLEAR; BILIRUBIN,URINE NEGATIVE (NEGATIVE); GLUCOSE, URINE NEGATIVE (NEGATIVE); KETONES,URINE 80 mg/dL (NEGATIVE); LEUKOCYTE ESTERASE,URINE NEGATIVE (NEGATIVE); NITRITE,URINE NEGATIVE (NEGATIVE); PROTEIN,URINE 100 mg/dL (NEGATIVE); URINE SPECIFIC GRAVITY 1.033
[2016-09-09 02:01] LABS: BLOOD UREA NITROGEN 8 mg/dL (7-20); CALCIUM 10.3 mg/dL (8.4-10.2); CARBON DIOXIDE 23 mmol/L (22-30); CHLORIDE 104 mmol/L (98-107); CREATININE RESULT 0.75 mg/dL (0.52-1.25); GLUCOSE 107 mg/dL (75-110); POTASSIUM 3.1 mmol/L (3.6-5.0)
[2016-09-09 02:02] LABS: ALANINE AMINOTRANSFERASE 25 U/L (9-52); ALBUMIN 4.7 g/dL (3.5-5.0); ALKALINE PHOSPHATASE 71 U/L (38-126); ANION GAP 13 (5-19); ASPARTATE AMINO TRANSFERASE 20 U/L (14-36); BILIRUBIN,TOTAL 0.8 mg/dL (0.2-1.3); SODIUM 139.9 mmol/L (137-145); TOTAL PROTEIN 7.8 g/dL (6.3-8.2)
[2016-09-09] MEDS ORDERED: POTASSIUM CHLORIDE 10 MEQ TABLET.SA PO ONE (02:53)
[2016-09-09] MEDS ORDERED: ONDANSETRON HCL INJ/PF 4 MG/2 ML SDV IV ONE (02:54)
--- NOTE | 2016-09-09 06:09 | PDOC H&P ---
History of Present Illness Admission Date/PCP: 09/09/16 03:13 RAE GREWAL MD Patient complains of: excessive nausea and vomiting not responsive to zofran at home. came to ER with increased weakness and dizziness. Indicates an allergy to phenergan of hives only. Denies anaphylactic reactions with it. History of Present Illness: ISIAH AYOUB is a 21 year old female Past Medical History Cardiac Medical History: Reports: Hypertension - GESTATIONAL Neurological Medical History: Reports: Migraine GI Medical History: Reports: Gastroesophageal Reflux Disease Psychiatric Medical History: Reports: Depression Past Surgical History Past Surgical History: Reports: Appendectomy - 2010 Social History Smoking Status: Never Smoker Family History Family History: Reviewed & Not Pertinent Parental Family History Reviewed: Yes Children Family History Reviewed: Yes Sibling(s) Family History Reviewed.: Yes Medication/Allergy Home Medications: Amoxicillin Trihydrate [Amoxil 500 mg Capsule] 500 mg PO TID #30 cap 09/25/13 Ondansetron [Zofran Odt 4 mg Tablet] 1 - 2 tab PO Q4H PRN #15 tab.rapdis Ibuprofen 800 mg PO Q8HP PRN #30 tablet 07/01/14 Nitrofurantoin/Nitrofuran Mac [Macrobid 100 mg Capsule] 100 mg PO BID #20 capsule 07/01/14 Phenazopyridine HCl [Pyridium 100 Mg Tablet] 100 mg PO TIDP PRN #7 tablet Docusate Sodium [Colace 100 mg Capsule] 100 mg PO DAILY #30 capsule 11/24/14 Sulfamethoxazole/Trimethoprim [Bactrim Ds Tablet] 1 each PO BID #10 tablet 11/24 Acetaminophen with Codeine [Tylenol #3 Tablet] 1 each PO Q6HP PRN #30 tablet Ibuprofen [Motrin 600 mg Tablet] 600 mg PO Q8HP PRN #90 tablet 04/30/15 Ketorolac Tromethamine [Toradol 10 mg Tablet] 10 mg PO Q6 #30 tablet 03/26/16 Ondansetron [Zofran Odt 4 mg Tablet] 1 - 2 tab PO Q4H PRN #15 tab.rapdis Diphenhydramine HCl [Benadryl 50 mg Capsule] 1 cap PO Q6 PRN #14 capsule Hydrocodone/Acetaminophen [[place] 5-325 mg Tablet] 1 tab PO Q6 #8 tablet Metoclopramide HCl [Reglan 10 mg Tablet] 1 - 2 tab PO ASDIR PRN #25 tablet 03/30 Cephalexin Monohydrate [Keflex 500 mg Capsule] 500 mg PO BID #10 capsule Ondansetron [Zofran Odt 4 mg Tablet] 1 - 2 tab PO Q4H PRN #30 tab.rapdis Doxylamine/Pyridoxine HCl [Josephine Dr 10-10 mg Tablet] 1 each PO TID #30 tablet. 09/06/16 Metoclopramide HCl [Reglan 10 mg Tablet] 1 tab PO ASDIR PRN #25 tablet 09/06/16 Allergies/Adverse Reactions: promethazine [From Phenergan] Allergy (Verified 09/08/16 22:02) Physical Exam - Physical Exam Vital Signs: Temp Pulse Resp BP Pulse Ox 98.2 F 62 16 98/71 L 99 09/08/16 21:36 09/08/16 21:36 09/08/16 21:36 09/08/16 21:36 09/08/16 21:36 Head exam: PRESENT: atraumatic Eye exam: PRESENT: conjunctiva pink Skin exam: PRESENT: dry, pallor Result Impressions: Obstetrics Ultrasound 09/08/16 22:06 IMPRESSION: LIVING INTRAUTERINE . EGA 7 weeks 5 days, heart rate 172 beats per minute Trimester of : First - 0 to 13 weeks. Assessment & Plan - Diagnosis (1) Abdominal pain Qualifiers: Abdominal location: epigastric Qualified Code(s): R10.13 - Epigastric pain Is this a current diagnosis for this admission?: Yes (2) Hyperemesis gravidarum Is this a current diagnosis for this admission?: Yes (3) Hypokalemia Is this a current diagnosis for this admission?: Yes (4) Dehydration during Is this a current diagnosis for this admission?: Yes - Time Time Spent: 30 to 50 Minutes Critical Time spent with patient: Less than 15 minutes Medications reviewed and adjusted accordingly: Yes Anticipated discharge: Home Within: within 48 hours - Inpatient Certification Based on my medical assessment, after consideration of the patient's comorbidities, presenting symptoms, or acuity I expect that the services needed warrant INPATIENT care.: Yes I certify that my determination is in accordance with my understanding of Medicare's requirements for reasonable and necessary INPATIENT services [42 CFR 412.3e].: Yes Medical Necessity: Failure to Improve With Outpatient Therapy, Need For IV Fluids
[2016-09-09] MEDS ORDERED: PROMETHAZINE HCL INJ 25 MG/1 ML VIAL ONE (06:15)
[2016-09-09] MEDS ORDERED: DIPHENHYDRAMINE HCL 50 MG/ML VIAL ONE (06:17)
[2016-09-09] MEDS ORDERED: DEXTROSE 5%-1/2 NORMAL SALINE 500 ML IV PRN (11:21)
[2016-09-09] MEDS: ONDANSETRON HCL INJ/PF 4 MG/2 ML SDV IV PRN ×2 (11:50→21:19)
[2016-09-09] MEDS: PYRIDOXINE HCL 50 MG TABLET PO SCH ×3 (13:47→22:33)
[2016-09-09] MEDS: PROMETHAZINE HCL INJ 25 MG/1 ML VIAL IV PRN (18:33)
[2016-09-09] MEDS: DIPHENHYDRAMINE HCL 50 MG/ML VIAL IV PRN (18:33)
[2016-09-09] MEDS: DEXTROSE 5%-1/2 NORMAL SALINE 1,000 ML IV PRN (18:34)
[2016-09-10] MEDS: PROMETHAZINE HCL INJ 25 MG/1 ML VIAL IV PRN (03:26)
[2016-09-10] MEDS: DIPHENHYDRAMINE HCL 50 MG/ML VIAL IV PRN (03:26)
[2016-09-10] MEDS ORDERED: ACETAMINOPHEN 325 MG TABLET PO PRN (04:34)
[2016-09-10] MEDS ORDERED: HYDROXYZINE PAMOATE 50 MG CAPSULE PO PRN (04:35)
[2016-09-10] MEDS ORDERED: ACETAMINOPHEN 325 MG TABLET PO ONE (04:45)
[2016-09-10] MEDS: DEXTROSE 5%-1/2 NORMAL SALINE 1,000 ML IV PRN (06:58)
[2016-09-10] MEDS: PYRIDOXINE HCL 50 MG TABLET PO SCH ×4 (09:46→21:01)
[2016-09-10] MEDS: ONDANSETRON HCL INJ/PF 4 MG/2 ML SDV IV PRN ×2 (10:40→21:01)
--- NOTE | 2016-09-10 20:21 | PDOC PROGRESS REPORT ---
Subjective Progress Note for:: 09/10/16 Subjective:: emesis x 3 per patient, once at admission then once yesterday and once today. She reports that she feels that it is due to the clear liquid diet and would like to advance diet. Pt also has hypersalivation. Physical Exam - Physical Exam Vital Signs: Temp Pulse Resp BP Pulse Ox 99.1 F 68 16 102/59 L 99 09/10/16 16:44 09/10/16 16:44 09/10/16 16:44 09/10/16 16:44 09/10/16 16:44 General appearance: PRESENT: no acute distress, well-developed, well-nourished Head exam: PRESENT: atraumatic, normocephalic Respiratory exam: PRESENT: clear to auscultation jordon, symmetrical, unlabored. ABSENT: wheezes Cardiovascular exam: PRESENT: RRR. ABSENT: diastolic murmur, rubs, systolic murmur Pulses: PRESENT: normal dorsalis pedis pul, +2 pedal pulses bilateral Vascular exam: PRESENT: normal capillary refill GI/Abdominal exam: PRESENT: normal bowel sounds, soft. ABSENT: distended, guarding, mass, organolmegaly, rebound, tenderness Rectal exam: PRESENT: deferred Extremities exam: PRESENT: full ROM. ABSENT: calf tenderness, clubbing, pedal edema Musculoskeletal exam: PRESENT: ambulatory Neurological exam: PRESENT: alert, awake, oriented to person, oriented to place , oriented to time, oriented to situation, CN II-XII grossly intact. ABSENT: motor sensory deficit Psychiatric exam: PRESENT: appropriate affect, normal mood. ABSENT: homicidal ideation, suicidal ideation Focused psych exam: PRESENT: other - pt unkempt and does not seem worried that things have spilled in her bed and she is just laying in it Skin exam: PRESENT: dry, intact, warm. ABSENT: cyanosis, rash Result Impressions: Obstetrics Ultrasound 09/08/16 22:06 IMPRESSION: LIVING INTRAUTERINE . EGA 7 weeks 5 days, heart rate 172 beats per minute Trimester of : First - 0 to 13 weeks. Assessment & Plan - Diagnosis (1) Hyperemesis gravidarum Is this a current diagnosis for this admission?: YesPlan: Pt with reports emesis although these episodes have not been reported to nursing. She was instructed to tell nursing when emesis occurs so that it can be measured and documented. She believes that her emesis is due to having clear liquids. Will given regualr diet and see if emesis worsens. Will re- evaluate in am. (2) Hypokalemia Is this a current diagnosis for this admission?: YesPlan: Hypokalemia on admission. Will recheck in am. - Time Time Spent with patient: Less than 15 minutes Critical Time spent with patient: Less than 15 minutes Medications reviewed and adjusted accordingly: Yes Anticipated discharge: Home Within: within 48 hours - Inpatient Certification Based on my medical assessment, after consideration of the patient's comorbidities, presenting symptoms, or acuity I expect that the services needed warrant INPATIENT care.: Yes I certify that my determination is in accordance with my understanding of Medicare's requirements for reasonable and necessary INPATIENT services [42 CFR 412.3e].: Yes Medical Necessity: Failure to Improve With Outpatient Therapy, Need For IV Fluids Post Hospital Care: D/C E Business Specialist Documentation
[2016-09-11] MEDS: DEXTROSE 5%-1/2 NORMAL SALINE 1,000 ML IV PRN (03:56)
[2016-09-11 08:06] LABS: ALANINE AMINOTRANSFERASE 23 U/L (9-52); ALBUMIN 2.9 g/dL (3.5-5.0); ALKALINE PHOSPHATASE 46 U/L (38-126); ANION GAP 9 (5-19); ASPARTATE AMINO TRANSFERASE 15 U/L (14-36); BILIRUBIN,TOTAL 0.4 mg/dL (0.2-1.3); BLOOD UREA NITROGEN 3 mg/dL (7-20); CALCIUM 8.6 mg/dL (8.4-10.2); CARBON DIOXIDE 23 mmol/L (22-30); CHLORIDE 105 mmol/L (98-107); GLUCOSE 85 mg/dL (75-110); POTASSIUM 3.4 mmol/L (3.6-5.0); SODIUM 137.2 mmol/L (137-145); TOTAL PROTEIN 5.4 g/dL (6.3-8.2)
[2016-09-11 09:00] VITALS: BP 111/53
--- NOTE | 2016-09-11 09:59 | PDOC DISCHARGE SUMMARY ---
General - Admit/Disc Date/PCP Admission Date/Primary Care Provider: 09/09/16 06:11 RAE GREWAL MD Discharge Date: 09/11/16 - Discharge Diagnosis (1) Abdominal pain Is this a current diagnosis for this admission?: Yes (2) Hyperemesis gravidarum Is this a current diagnosis for this admission?: Yes (3) Hypokalemia Is this a current diagnosis for this admission?: Yes (4) Dehydration during Is this a current diagnosis for this admission?: Yes - Additional Information Discharge Activity: Activity As Tolerated, Balance Activity w/Rest Home Medications: Amoxicillin Trihydrate [Amoxil 500 mg Capsule] 500 mg PO TID #30 cap 09/25/13 Ondansetron [Zofran Odt 4 mg Tablet] 1 - 2 tab PO Q4H PRN #15 tab.rapdis Ibuprofen 800 mg PO Q8HP PRN #30 tablet 07/01/14 Nitrofurantoin/Nitrofuran Mac [Macrobid 100 mg Capsule] 100 mg PO BID #20 capsule 07/01/14 Phenazopyridine HCl [Pyridium 100 Mg Tablet] 100 mg PO TIDP PRN #7 tablet Docusate Sodium [Colace 100 mg Capsule] 100 mg PO DAILY #30 capsule 11/24/14 Sulfamethoxazole/Trimethoprim [Bactrim Ds Tablet] 1 each PO BID #10 tablet 11/24 Acetaminophen with Codeine [Tylenol #3 Tablet] 1 each PO Q6HP PRN #30 tablet Ibuprofen [Motrin 600 mg Tablet] 600 mg PO Q8HP PRN #90 tablet 04/30/15 Metoclopramide HCl [Reglan 10 mg Tablet] 10 mg PO Q4HP PRN 09/09/16 Ondansetron [Zofran Odt 4 mg Tablet] 8 mg PO Q4HP PRN 09/09/16 Vit/Iron Fumarate/FA [ Tablet] 1 each PO DAILY 09/09/16 Hospital Course Hospital Course: vomited once over night and nausea is improving. K+ replaced and normalized. Physical Exam - Physical Exam Vital Signs: Temp Pulse Resp BP Pulse Ox 98.2 F 56 L 16 111/53 L 100 09/11/16 08:06 09/11/16 08:06 09/11/16 08:06 09/11/16 08:06 09/11/16 08:06 Intake & Output 09/10/16 09/11/16 09/12/16 06:59 06:59 06:59 Intake Total 1970 Output Total 200 Balance 1770 General appearance: PRESENT: no acute distress, cooperative GI/Abdominal exam: PRESENT: soft - nontender. Result Laboratory Results: 09/11/16 07:20 09/11/16 09/11/16 07:20 07:20 Sodium 137.2 Potassium 3.4 L Chloride 105 Carbon Dioxide 23 Anion Gap 9 BUN 3 L Creatinine 0.70 Est GFR ( Amer) > 60 Est GFR (Non-Af Amer) > 60 Glucose 85 Calcium 8.6 Total Bilirubin 0.4 AST 15 ALT 23 Alkaline Phosphatase 46 Total Protein 5.4 L Albumin 2.9 L TSH 1.16 Impressions: Obstetrics Ultrasound 09/08/16 22:06 IMPRESSION: LIVING INTRAUTERINE . EGA 7 weeks 5 days, heart rate 172 beats per minute Trimester of : First - 0 to 13 weeks. Plan Discharge Plan: discharge home with phenergan and benadryl with follow up in the office in one week. strict precautions given Time Spent: Less than 30 Minutes
[2016-09-11] MEDS: PYRIDOXINE HCL 50 MG TABLET PO SCH (11:27)
== END 2016-09-11 11:53 | disposition home or self-care (01) | DRG 781 ==
LOC: ER 21:16 → EH 09-09 03:13 → 2S 09-09 05:40 → OBSVTOIN 09-09 06:11
PROVIDERS: ADMIT Obstetrics & Gynecology; ATTEND Obstetrics & Gynecology
DX: O21.1 Hyperemesis gravidarum with metabolic disturbance (principal); E86.0 Dehydration; R10.9 Unspecified abdominal pain; Z3A.01 Less than 8 weeks gestation of pregnancy
CPT/HCPCS: 36415; 76817; 80053; 81001; 83735; 84443; 84702; 85025; 86900; 86901; 87086; 87088; 87186; 96361; 96374; 96375; 99285; J1200; J2405; J2550; J2765; J3490; J7030; S0028

== ENCOUNTER 2016-09-25 19:09 | Emergency (ER) | payer MEDICAID ==
[2016-09-25] MEDS ORDERED: LORAZEPAM INJ 2 MG/1 ML VIAL ONE (21:01)
[2016-09-25] MEDS ORDERED: LORAZEPAM INJ 2 MG/1 ML VIAL IV ONE (21:01)
--- NOTE | 2016-09-25 21:15 | ER Document Report ---
ED General - General Chief Complaint: Anxiety Stated Complaint: NAUSEA VOMITING Notes: Patient is a 21-year-old female with past medical history of anxiety and panic attacks who is currently 9 weeks who presents with concerns of severe anxiety and one of her typical panic attacks. States that she found out some bad news, began hyperventilating and started feeling like she was choking. Nothing improved or worsened her symptoms. States this feels identical to prior panic attacks that she has had. She has not seen her primary doctor regarding today's concerns. TRAVEL OUTSIDE OF THE [place] IN LAST 30 DAYS: No - Related Data Allergies/Adverse Reactions: promethazine [From Phenergan] Allergy (Verified 09/09/16 19:55) PRUITIS Past Medical History - General Information source: Patient - Social History Smoking Status: Never Smoker Frequency of alcohol use: None Drug Abuse: None Lives with: Spouse/Significant other Family History: Reviewed & Not Pertinent - Past Medical History Cardiac Medical History: Reports: Hx Hypertension - GESTATIONAL Neurological Medical History: Reports: Hx Migraine Renal/ Medical History: Denies: Hx Peritoneal Dialysis GI Medical History: Reports: Hx Gastroesophageal Reflux Disease Psychiatric Medical History: Reports: Hx Depression Past Surgical History: Reports: Hx Appendectomy - 2009 - Immunizations Immunizations up to date: Yes Hx Diphtheria, Pertussis, Tetanus Vaccination: No Review of Systems - Review of Systems Notes: Constitutional: Negative for fever. HENT: Negative for sore throat. Eyes: Negative for visual changes. Cardiovascular: Negative for chest pain. Respiratory: Negative for shortness of breath. Gastrointestinal: Negative for abdominal pain, vomiting or diarrhea. Genitourinary: Negative for dysuria. Musculoskeletal: Negative for back pain. Skin: Negative for rash. Neurological: Negative for headaches, weakness or numbness. 10 point ROS negative except as marked above and in HPI. Physical Exam - Vital signs Vitals: Temp Pulse Resp BP Pulse Ox 98.5 F 73 16 129/73 H 100 09/25/16 19:15 09/25/16 19:15 09/25/16 19:15 09/25/16 19:15 09/25/16 19:15 Interpretation: Normal Notes: PHYSICAL EXAMINATION: GENERAL: Appears anxious but in no distress HEAD: Atraumatic, normocephalic. EYES: Pupils equal round and reactive to light, extraocular movements intact, sclera anicteric, conjunctiva are normal. ENT: nares patent, oropharynx clear without exudates. Moist mucous membranes. NECK: Normal range of motion, supple without lymphadenopathy LUNGS: Breath sounds clear to auscultation bilaterally and equal. No wheezes rales or rhonchi. HEART: Regular rate and rhythm without murmurs ABDOMEN: Soft, nontender, normoactive bowel sounds. No guarding, no rebound. No masses appreciated. EXTREMITIES: Normal range of motion, no pitting or edema. No cyanosis. NEUROLOGICAL: No focal neurological deficits. Moves all extremities spontaneously and on command. PSYCH: Anxious, tearful SKIN: Warm, Dry, normal turgor, no rashes or lesions noted. Course - Re-evaluation Re-evalutation: 09/25/16 21:14 Patient presents with history most consistent with an acute panic attack. The patient admits that these are symptoms identical to prior occasions of panic. There was a clear trigger for tonight's episode. Symptoms did resolve after receiving medical therapy here in the emergency department. Vitals otherwise within normal limits. I do not suspect an acute pulmonary embolus, ACS, pneumothorax, or any other acute left threatening pathology based on history and exam. Bedside ultrasound shows a viable intrauterine , heart rate at 153. Active movement. I do not believe any labs or imaging are indicated at this time. At this time will discharge with return precautions and follow-up recommendations. Verbal discharge instructions given a the bedside and opportunity for questions given. Medication warnings reviewed. Patient is in agreement with this plan and has verbalized understanding of return precautions and the need for primary care follow-up in the next 24-72 hours. - Vital Signs Vital signs: Temp Pulse Resp BP Pulse Ox 97.7 F 74 14 111/71 100 09/25/16 21:28 09/25/16 21:28 09/25/16 21:28 09/25/16 21:28 09/25/16 21:28 Discharge - Discharge Clinical Impression: Panic attack Condition: Good Disposition: HOME, SELF-CARE Instructions: Anxiety ([facility]) Additional Instructions: You were seen today for symptoms that are most suggestive of a panic attack. The symptoms can come on without any clear trigger. It is important that you follow-up with your primary care physician regarding anxiety and panic attacks as there are medications that can help prevent these attacks or stop them once they start. Please return to the emergency department immediately if you began having chest pain, shortness of breath, vomiting, difficulty breathing, or if you are again having a panic attack. Please also return if you have any additional symptoms that are concerning to you. Referrals: JEFF SERRATO MD [Primary Care Provider] - Follow up as needed
[2016-09-25 21:32] VITALS: BP 111/71
== END 2016-09-25 21:32 | disposition home or self-care (01) ==
LOC: ER 19:09
DX: F41.0 Panic disorder [episodic paroxysmal anxiety] (principal); F41.9 Anxiety disorder, unspecified; R11.2 Nausea with vomiting, unspecified; Z3A.09 9 weeks gestation of pregnancy
CPT/HCPCS: 99284; 96374; J2060

== ENCOUNTER 2016-09-29 16:37 | Emergency (ER) | payer MEDICAID ==
--- NOTE | 2016-09-29 16:48 | ER Document Report ---
ED Medical Screen (RME) - General Stated Complaint: NAUSEA,VOMITING Mode of Arrival: Ambulatory Information source: Patient Notes: Patient is currently 10 weeks complains of nausea, vomiting and abdominal pain. Patient denies any vaginal bleeding or discharge. Patient reports nausea, vomiting throughout . Patient reports lower pelvic cramping off and on for the past 5 weeks. Patient states she did take her prescribed nausea medication without improvement of her symptoms. Patient has had ultrasound to confirm the in the past. hx: None I have greeted and performed a rapid initial assessment of this patient. A comprehensive ED assessment and evaluation of the patient, analysis of test results and completion of the medical decision making process will be conducted by additional ED providers. TRAVEL OUTSIDE OF THE [place] IN LAST 30 DAYS: No - Related Data Allergies/Adverse Reactions: promethazine [From Phenergan] Allergy (Verified 09/29/16 16:50) PRUITIS Past Medical History - Past Medical History Cardiac Medical History: Reports: Hx Hypertension - GESTATIONAL Neurological Medical History: Reports: Hx Migraine Renal/ Medical History: Denies: Hx Peritoneal Dialysis GI Medical History: Reports: Hx Gastroesophageal Reflux Disease Psychiatric Medical History: Reports: Hx Depression Past Surgical History: Reports: Hx Appendectomy - 2009 - Immunizations Immunizations up to date: Yes Hx Diphtheria, Pertussis, Tetanus Vaccination: No Physical Exam - Vital signs Vitals: Temp Pulse Resp BP Pulse Ox 98.3 F 80 26 H 130/81 H 100 09/29/16 16:48 09/29/16 16:48 09/29/16 16:48 09/29/16 16:48 09/29/16 16:48 - Abdominal Tenderness: Tender - Generalized abdomen Course - Vital Signs Vital signs: Temp Pulse Resp BP Pulse Ox 98.3 F 80 26 H 130/81 H 100 09/29/16 16:48 09/29/16 16:48 09/29/16 16:48 09/29/16 16:48 09/29/16 16:48
[2016-09-29] MEDS ORDERED: DIPHENHYDRAMINE HCL 50 MG/ML VIAL IV ONE ×2 (16:49→22:00)
[2016-09-29] MEDS ORDERED: NORMAL SALINE 1000 ML 1,000 ML IV ONE ×2 (16:49→22:00)
[2016-09-29 17:35] LABS: APPEARANCE,URINE SLIGHTLY-CLOUDY; BILIRUBIN,URINE NEGATIVE (NEGATIVE); GLUCOSE, URINE NEGATIVE (NEGATIVE); KETONES,URINE 80 mg/dL (NEGATIVE); LEUKOCYTE ESTERASE,URINE TRACE (NEGATIVE); NITRITE,URINE NEGATIVE (NEGATIVE); PROTEIN,URINE 100 mg/dL (NEGATIVE); URINE SPECIFIC GRAVITY 1.038; UROBILINOGEN,URINE NEGATIVE mg/dL (<2.0)
[2016-09-29 17:46] LABS: ABSOLUTE LYMPHOCYTES (AUTO) 2.3 10^3/uL (0.5-4.7); ABSOLUTE MONOCYTES (AUTO) 0.7 10^3/uL (0.1-1.4); ABSOLUTE NEUT (AUTO) 9.6 10^3/uL (1.7-8.2); BASOPHILS % (AUTO) 0.4 % (0-2); EOSINOPHILS % (AUTO) 0.1 % (0-6); HEMOGLOBIN 13.9 g/dL (12.0-15.5); HGB HCT DIFFERENCE -0.3; LYMPHOCYTES % (AUTO) 18.1 % (13-45); MEAN CORPUSCULAR HEMOGLOBIN 27.8 pg (27.0-33.4); MEAN CORPUSCULAR HGB CONC 33.2 g/dL (32.0-36.0); MEAN CORPUSCULAR VOLUME 84 fl (80-97); MONOCYTES % (AUTO) 5.2 % (3-13); RED BLOOD COUNT 5.02 10^6/uL (3.72-5.28); RED CELL DISTRIBUTION WIDTH 13.2 % (11.5-14.0); SEGMENTED NEUTROPHILS % (AUTO) 76.2 % (42-78); WHITE BLOOD COUNT 12.7 10^3/uL (4.0-10.5)
[2016-09-29 17:53] LABS: ALANINE AMINOTRANSFERASE 26 U/L (9-52); ALBUMIN 4.6 g/dL (3.5-5.0); ALKALINE PHOSPHATASE 101 U/L (38-126); ASPARTATE AMINO TRANSFERASE 24 U/L (14-36); BILIRUBIN,DIRECT 0.3 mg/dL (0.0-0.4); BILIRUBIN,TOTAL 0.6 mg/dL (0.2-1.3); BLOOD UREA NITROGEN 9 mg/dL (7-20); CALCIUM 10.6 mg/dL (8.4-10.2); CHLORIDE 104 mmol/L (98-107); CREATININE RESULT 0.73 mg/dL (0.52-1.25); GLUCOSE 111 mg/dL (75-110); LIPASE 82.7 U/L (23-300); POTASSIUM 3.7 mmol/L (3.6-5.0); TOTAL PROTEIN 8.2 g/dL (6.3-8.2)
[2016-09-29 18:19] LABS: CARBON DIOXIDE 20 mmol/L (22-30); SODIUM 142.2 mmol/L (137-145)
[2016-09-29 18:20] LABS: ANION GAP 18 (5-19)
[2016-09-29] MEDS ORDERED: PROMETHAZINE HCL INJ 25 MG/1 ML VIAL IV ONE (22:13)
--- NOTE | 2016-09-29 22:15 | ER Document Report ---
ED General - General Chief Complaint: Abdominal Cramping Stated Complaint: NAUSEA,VOMITING Mode of Arrival: Ambulatory Information source: Patient Notes: This is a 21-year-old female at 10 WGA who presents with persistent nausea and vomiting of . Of note she has been seen for this several times in the emergency department, and was admitted to the hospital September 08 through September 11 for the same. She states that she has been vomiting for several days and is unable to tolerate anything by mouth today. She also states that the only thing that helps his Phenergan. She states that she did receive Phenergan while in the hospital last time despite the fact that she has an allergy which she says is hives. She states that as long as she has Benadryl along with the Phenergan she does well with it. She has been trying Zofran at home with no relief. She denies any fevers or chills. No dysuria. No vaginal bleeding. TRAVEL OUTSIDE OF THE [place] IN LAST 30 DAYS: No - Related Data Allergies/Adverse Reactions: promethazine [From Phenergan] Allergy (Verified 09/29/16 16:50) PRUITIS Past Medical History - General Information source: Patient - Social History Smoking Status: Never Smoker Chew tobacco use (# tins/day): No Frequency of alcohol use: None Drug Abuse: None Family History: Reviewed & Not Pertinent - Past Medical History Cardiac Medical History: Reports: Hx Hypertension - GESTATIONAL Neurological Medical History: Reports: Hx Migraine Renal/ Medical History: Denies: Hx Peritoneal Dialysis GI Medical History: Reports: Hx Gastroesophageal Reflux Disease Psychiatric Medical History: Reports: Hx Depression Past Surgical History: Reports: Hx Appendectomy - 2010 - Immunizations Immunizations up to date: Yes Hx Diphtheria, Pertussis, Tetanus Vaccination: No Review of Systems - Review of Systems Notes: REVIEW OF SYSTEMS: CONSTITUTIONAL : Denies fever, chills, or sweats. Denies recent illness. EENT: Denies eye, ear, throat, or mouth pain or symptoms. Denies nasal or sinus congestion. CARDIOVASCULAR: Denies chest pain. RESPIRATORY: Denies cough, cold, or chest congestion. Denies shortness of breath, difficulty breathing, or wheezing. GASTROINTESTINAL: As per history of present illness GENITOURINARY: Denies difficulty urinating, painful urination, burning, frequency, or blood in urine. MUSCULOSKELETAL: Denies neck or back pain or joint pain or swelling. SKIN: Denies rash or skin lesions. HEMATOLOGIC : Denies easy bruising or bleeding. LYMPHATIC: Denies swollen, enlarged glands. NEUROLOGICAL: Denies altered mental status or loss of consciousness. Denies headache. PSYCHIATRIC: Denies anxiety or stress or depression. ALL OTHER SYSTEMS REVIEWED AND NEGATIVE. Physical Exam - Vital signs Vitals: Temp Pulse Resp BP Pulse Ox 98.3 F 80 26 H 130/81 H 100 09/29/16 16:48 09/29/16 16:48 09/29/16 16:48 09/29/16 16:48 09/29/16 16:48 Course - Re-evaluation Re-evalutation: 09/29/16 23:49 Discussed with on-call OB Dr. Ramey who does not feel pt meets criteria for readmission at this point, but does recommend a trial of a steroid boost ( medrol dose pack) and follow up with OB this week. 09/29/16 23:50 Patient noted to have stable vital signs, benign abdominal exam, and is tolerating sips of PO gingerale. - Vital Signs Vital signs: Temp Pulse Resp BP Pulse Ox 98.3 F 80 16 114/57 L 100 09/29/16 16:48 09/29/16 23:30 09/29/16 23:30 09/29/16 23:30 09/29/16 23:30 - Laboratory Result Diagrams: 09/29/16 17:00 09/29/16 17:00 Laboratory results interpreted by me: 09/29/16 09/29/16 09/29/16 17:00 17:00 17:05 WBC 12.7 H Absolute Neutrophils 9.6 H Carbon Dioxide 20 L Glucose 111 H Calcium 10.6 H Beta HCG, Quant 151712.00 H Urine Protein 100 H Urine Ketones 80 H Ur Leukocyte Esterase TRACE H Urine Ascorbic Acid 40 H Discharge - Discharge Clinical Impression: Hyperemesis gravidarum Condition: Stable Disposition: HOME, SELF-CARE Additional Instructions: Hyperemesis Gravidarum Hyperemesis gravidarum is the medical term for severe vomiting during . We don't know exactly why it occurs, but it's a common problem. Dehydration can occur. This reduces blood flow to the placenta, decreasing the baby's nourishment. The baby will also become dehydrated. There can be harmful changes in blood sodium, potassium, or acid balance. Our goal is to correct, and prevent, dehydration. For severe cases, we give IV fluids. Antinausea medication will be prescribed. (Don't be concerned about " defects" -- the risk to you and your baby from the hyperemesis is the biggest problem. The antinausea medication is very safe at this stage of .) Call the doctor if you have vaginal bleeding, abdominal pain, severe lightheadedness or weakness, or other alarming symptoms. Follow up with your OB doctor on Saturday. Take medrol dose pack and phenergan as prescribed. Return to the ER for fever , vaginal bleeding, or worsening symptoms or concerns. Prescriptions: Diphenhydramine HCl [Benadryl] 25 mg PO Q6H PRN #20 capsule PRN Reason: Methylprednisolone [Medrol Dosepack (4 mg/Tab) 21 Tab/Dosepak] 4 mg PO ASDIR PRN #21 tab.ds.pk PRN Reason: Promethazine HCl [Phenergan 25 mg Tablet] 1 tab PO Q6H PRN #12 tablet PRN Reason:
[2016-09-29] MEDS ORDERED: PROMETHAZINE HCL INJ 25 MG/1 ML VIAL ONE (22:31)
[2016-09-30 02:41] VITALS: BP 131/63
== END 2016-09-30 02:41 | disposition home or self-care (01) ==
LOC: ER 16:37
DX: O21.0 Mild hyperemesis gravidarum (principal); Z3A.10 10 weeks gestation of pregnancy; R10.9 Unspecified abdominal pain
CPT/HCPCS: 99283; 96361; 96374; 96375; 36415; 84702; 83690; 85025; 80053; 81001; J1200; J2550; J7030

== ENCOUNTER 2016-09-30 18:27 | Emergency (ER) | payer MEDICAID ==
[2016-09-30 18:39] VITALS: BP 124/86
--- NOTE | 2016-09-30 18:44 | ER Document Report ---
ED Medical Screen (RME) - General Stated Complaint: NAUSEA Mode of Arrival: Medic Information source: Patient, Emergency Med Personnel Notes: Patient presents via EMS for hyperemesis. Treated yesterday here in the ER. Patient reports back after still vomiting. Reports it is worse. Reports vaginal bleeding a couple days ago none right now. I have greeted and performed a rapid initial assessment of this patient. A comprehensive ED assessment and evaluation of the patient, analysis of test results and completion of the medical decision making process will be conducted by additional ED providers. TRAVEL OUTSIDE OF THE [place] IN LAST 30 DAYS: No - Related Data Allergies/Adverse Reactions: promethazine [From Phenergan] Allergy (Verified 09/30/16 18:57) PRUITIS Past Medical History - Past Medical History Cardiac Medical History: Reports: Hx Hypertension - GESTATIONAL Neurological Medical History: Reports: Hx Migraine Renal/ Medical History: Denies: Hx Peritoneal Dialysis GI Medical History: Reports: Hx Gastroesophageal Reflux Disease Psychiatric Medical History: Reports: Hx Depression Past Surgical History: Reports: Hx Appendectomy - 2009 - Immunizations Immunizations up to date: Yes Hx Diphtheria, Pertussis, Tetanus Vaccination: No Physical Exam - Vital signs Vitals: Temp Pulse Resp BP Pulse Ox 98.7 F 99 20 124/86 H 100 09/30/16 18:38 09/30/16 18:38 09/30/16 18:38 09/30/16 18:38 09/30/16 18:38 Course - Vital Signs Vital signs: Temp Pulse Resp BP Pulse Ox 98.7 F 99 20 124/86 H 100 09/30/16 18:38 09/30/16 18:38 09/30/16 18:38 09/30/16 18:38 09/30/16 18:38
[2016-09-30] MEDS ORDERED: METOCLOPRAMIDE HCL INJ/PF 10 MG/2 ML SDV IV ONE (18:57)
[2016-09-30 19:31] LABS: ABSOLUTE EOSINOPHILS # (AUTO) 0.1 10^3/uL (0.0-0.6); ABSOLUTE LYMPHOCYTES (AUTO) 3.3 10^3/uL (0.5-4.7); ABSOLUTE MONOCYTES (AUTO) 0.8 10^3/uL (0.1-1.4); ABSOLUTE NEUT (AUTO) 8.1 10^3/uL (1.7-8.2); BASOPHILS % (AUTO) 0.4 % (0-2); EOSINOPHILS % (AUTO) 1.1 % (0-6); HEMATOCRIT 37.3 % (36.0-47.0); HEMOGLOBIN 12.5 g/dL (12.0-15.5); HGB HCT DIFFERENCE 0.2; LYMPHOCYTES % (AUTO) 26.5 % (13-45); MEAN CORPUSCULAR HGB CONC 33.5 g/dL (32.0-36.0); MEAN CORPUSCULAR VOLUME 84 fl (80-97); MONOCYTES % (AUTO) 6.8 % (3-13); RED BLOOD COUNT 4.46 10^6/uL (3.72-5.28); RED CELL DISTRIBUTION WIDTH 13.3 % (11.5-14.0); SEGMENTED NEUTROPHILS % (AUTO) 65.2 % (42-78); WHITE BLOOD COUNT 12.4 10^3/uL (4.0-10.5)
[2016-09-30 19:42] LABS: ALANINE AMINOTRANSFERASE 20 U/L (9-52); ALKALINE PHOSPHATASE 79 U/L (38-126); ANION GAP 15 (5-19); ASPARTATE AMINO TRANSFERASE 20 U/L (14-36); BILIRUBIN,DIRECT 0.1 mg/dL (0.0-0.4); BILIRUBIN,TOTAL 0.6 mg/dL (0.2-1.3); BLOOD UREA NITROGEN 8 mg/dL (7-20); CALCIUM 9.7 mg/dL (8.4-10.2); CARBON DIOXIDE 22 mmol/L (22-30); CHLORIDE 103 mmol/L (98-107); CREATININE RESULT 0.66 mg/dL (0.52-1.25); GLUCOSE 85 mg/dL (75-110); LIPASE 87.6 U/L (23-300); POTASSIUM 3.1 mmol/L (3.6-5.0); SODIUM 139.9 mmol/L (137-145)
== END 2016-09-30 22:51 | disposition left against medical advice (07) ==
LOC: ER 18:27
DX: R11.2 Nausea with vomiting, unspecified (principal); N93.9 Abnormal uterine and vaginal bleeding, unspecified; Z88.8 Allergy status to other drugs, medicaments and biological substances; Z90.49 Acquired absence of other specified parts of digestive tract; Z87.19 Personal history of other diseases of the digestive system
CPT/HCPCS: 36415; 80053; 83690; 84702; 85025; 99281

== ENCOUNTER 2016-10-06 10:14 | Observation (INO) | payer MEDICAID, OTHER ==
[2016-10-06] MEDS ORDERED: METOCLOPRAMIDE HCL INJ/PF 10 MG/2 ML SDV IV ONE ×2 (10:51→15:23)
--- NOTE | 2016-10-06 10:51 | ER Document Report ---
Doctor's Note Notes: 10/06/16 10:50 I have greeted and performed a rapid initial assessment of this patient. A comprehensive ED assessment and evaluation of the patient, analysis of test results and completion of the medical decision making process will be conducted by additional ED providers. 21-year-old female 11 weeks with a history of hyperemesis presents with episodes of vomiting for the past few days. Patient denies any fevers or chills admits to abdominal cramping. Denies any vaginal bleeding or discharge Patient notes Reglan resolves her vomiting Abdomen soft nontender patient is spitting in room
[2016-10-06] MEDS ORDERED: NORMAL SALINE 1000 ML 1,000 ML IV ONE ×2 (10:54→15:19)
--- NOTE | 2016-10-06 11:42 | ER Document Report ---
ED GI/ - General Time seen by provider: 11:35 Mode of Arrival: Wheelchair Information source: Patient TRAVEL OUTSIDE OF THE [place] IN LAST 30 DAYS: No - HPI Patient complains to provider of: Abdominal pain Associated symptoms: Other - See above <NIGEL MEYER - Last Filed: 10/06/16 11:37> <ZACHERY PARKS - Last Filed: 10/06/16 15:30> - General Chief Complaint: Abdominal Pain Stated Complaint: abdominal pain Notes: Patient is a 21 year old female who presents to the emergency department complaining of abdominal pain as well as nausea and vomiting. Patient has been seen in the ED for similar complaints 4x in the past 11 days. Patient states that Reglan has been helping but that she has difficulty keeping it down, patient has been given Phenergan suppositories to take at home but she has not been using them. Patient reports she is allergic to Phenergan and gets hives, in her past visits she has been given Benedryl to take with the suppositories. Patient has yet to try Diclectin. (NIGEL MEYER) - Related Data Allergies/Adverse Reactions: promethazine [From Phenergan] Allergy (Verified 10/06/16 10:18) PRUITIS Past Medical History - General Information source: Patient - Social History Smoking Status: Unknown if Ever Smoked Family History: Reviewed & Not Pertinent Patient has suicidal ideation: No Patient has homicidal ideation: No - Past Medical History Cardiac Medical History: Reports: Hx Hypertension - GESTATIONAL Neurological Medical History: Reports: Hx Migraine GI Medical History: Reports: Hx Gastroesophageal Reflux Disease Psychiatric Medical History: Reports: Hx Depression Past Surgical History: Reports: Hx Appendectomy - 2009 - Immunizations Immunizations up to date: Yes Hx Diphtheria, Pertussis, Tetanus Vaccination: No <NIGEL MEYER - Last Filed: 10/06/16 11:37> Review of Systems - Review of Systems Constitutional: No symptoms reported EENT: No symptoms reported Cardiovascular: No symptoms reported Respiratory: No symptoms reported Gastrointestinal: See HPI, Abdominal pain, Nausea, Vomiting Genitourinary: No symptoms reported Female Genitourinary: See HPI, Musculoskeletal: No symptoms reported Skin: No symptoms reported Hematologic/Lymphatic: No symptoms reported Neurological/Psychological: No symptoms reported -: Yes All other systems reviewed and negative <NIGEL MEYER - Last Filed: 10/06/16 11:37> Physical Exam - Vital signs Interpretation: Tachycardic - General General appearance: Alert, Other - Appears uncomfortable - HEENT Head: Normocephalic, Atraumatic Mucous membranes: Dry - Respiratory Respiratory status: No respiratory distress Chest status: Nontender Breath sounds: Normal Chest palpation: Normal - Cardiovascular Rhythm: Tachycardia Heart sounds: Normal auscultation Murmur: No - Abdominal Distension: No distension Bowel sounds: Normal Tenderness: Nontender Organomegaly: No organomegaly - Extremities General upper extremity: Normal inspection General lower extremity: Normal inspection - Neurological Neuro grossly intact: Yes Cognition: Normal Orientation: AAOx4 Veda Coma Scale Eye Opening: Spontaneous Veda Coma Scale Verbal: Oriented [place] Coma Scale Motor: Obeys Commands [place] Coma Scale Total: 15 Speech: Normal - Psychological Associated symptoms: Normal affect, Normal mood - Skin Skin Temperature: Warm Skin Moisture: Dry Skin Color: Normal <NIGEL MEYER - Last Filed: 10/06/16 11:37> <ZACHERY PARKS - Last Filed: 10/06/16 15:30> - Vital signs Vitals: Temp Pulse Resp BP Pulse Ox 98.3 F 78 14 125/75 98 10/06/16 10:19 10/06/16 10:19 10/06/16 10:19 10/06/16 10:19 10/06/16 10:19 Course - Laboratory Result Diagrams: 10/06/16 12:20 10/06/16 12:20 - Consults Dr. Ku Time consulted: 15:25 Consulted provider: will see as inpatient <ZACHERY PARKS - Last Filed: 10/06/16 15:30> - Vital Signs Vital signs: Temp Pulse Resp BP Pulse Ox 98.3 F 78 14 125/75 98 10/06/16 10:19 10/06/16 10:19 10/06/16 10:19 10/06/16 10:19 10/06/16 10:19 - Laboratory Laboratory results interpreted by me: 10/06/16 10/06/16 10/06/16 12:20 12:20 13:30 WBC 13.5 H Seg Neutrophils % 83.4 H Lymphocytes % 12.8 L Absolute Neutrophils 11.2 H Anion Gap 21 H Glucose 122 H Calcium 10.6 H Direct Bilirubin 0.5 H AST 38 H Total Protein 9.2 H Beta HCG, Quant 338572.00 H Urine Protein >=500 H Urine Ketones 80 H Urine Ascorbic Acid 40 H Discharge <NIGEL MEYER - Last Filed: 10/06/16 11:37> - Discharge Admitting Provider: [facility] Admitted: Post <ZACHERY PARKS - Last Filed: 10/06/16 15:30> - Discharge Clinical Impression: Hyperemesis gravidarum, Dehydration Condition: Stable Disposition: ADMITTED INPATIENT Referrals: JEFF SERRATO MD [Primary Care Provider] - Follow up as needed Scribe Attestation: 10/06/16 15:30 I personally performed the services described in the documentation, reviewed and edited the documentation which was dictated to the scribe in my presence, and it accurately records my words and actions. (ZACHERY PARKS) Scribe Documentation - Scribe Written by Naomie:: prashant Mallory, 10/06/16, 1144 acting as scribe for :: Lakia <NIGEL MEYER - Last Filed: 10/06/16 11:37>
[2016-10-06 12:32] LABS: ABSOLUTE LYMPHOCYTES (AUTO) 1.7 10^3/uL (0.5-4.7); ABSOLUTE MONOCYTES (AUTO) 0.5 10^3/uL (0.1-1.4); ABSOLUTE NEUT (AUTO) 11.2 10^3/uL (1.7-8.2); BASOPHILS % (AUTO) 0.2 % (0-2); EOSINOPHILS % (AUTO) 0.1 % (0-6); HEMATOCRIT 42.8 % (36.0-47.0); HEMOGLOBIN 14.7 g/dL (12.0-15.5); HGB HCT DIFFERENCE 1.3; LYMPHOCYTES % (AUTO) 12.8 % (13-45); MEAN CORPUSCULAR HEMOGLOBIN 28.4 pg (27.0-33.4); MEAN CORPUSCULAR HGB CONC 34.4 g/dL (32.0-36.0); MEAN CORPUSCULAR VOLUME 83 fl (80-97); MONOCYTES % (AUTO) 3.5 % (3-13); RED BLOOD COUNT 5.18 10^6/uL (3.72-5.28); RED CELL DISTRIBUTION WIDTH 12.9 % (11.5-14.0); SEGMENTED NEUTROPHILS % (AUTO) 83.4 % (42-78); WHITE BLOOD COUNT 13.5 10^3/uL (4.0-10.5)
[2016-10-06 12:51] LABS: ALANINE AMINOTRANSFERASE 19 U/L (9-52); ALBUMIN 4.8 g/dL (3.5-5.0); ALKALINE PHOSPHATASE 93 U/L (38-126); ASPARTATE AMINO TRANSFERASE 38 U/L (14-36); BILIRUBIN,DIRECT 0.5 mg/dL (0.0-0.4); BILIRUBIN,TOTAL 0.8 mg/dL (0.2-1.3); BLOOD UREA NITROGEN 12 mg/dL (7-20); CALCIUM 10.6 mg/dL (8.4-10.2); CARBON DIOXIDE 23 mmol/L (22-30); CHLORIDE 100 mmol/L (98-107); CREATININE RESULT 0.66 mg/dL (0.52-1.25); GLUCOSE 122 mg/dL (75-110); LIPASE 95.5 U/L (23-300); POTASSIUM 3.6 mmol/L (3.6-5.0); SODIUM 144.1 mmol/L (137-145); TOTAL PROTEIN 9.2 g/dL (6.3-8.2)
[2016-10-06 13:14] LABS: ANION GAP 21 (5-19)
[2016-10-06] MEDS ORDERED: DEXTROSE 5%-LACTATED RINGERS 1,000 ML IV ONE (13:50)
[2016-10-06 14:04] LABS: APPEARANCE,URINE SLIGHTLY-CLOUDY; BILIRUBIN,URINE NEGATIVE (NEGATIVE); GLUCOSE, URINE NEGATIVE (NEGATIVE); KETONES,URINE 80 mg/dL (NEGATIVE); LEUKOCYTE ESTERASE,URINE NEGATIVE (NEGATIVE); NITRITE,URINE NEGATIVE (NEGATIVE); PROTEIN,URINE >=500 mg/dL (NEGATIVE); URINE SPECIFIC GRAVITY 1.037; UROBILINOGEN,URINE NEGATIVE mg/dL (<2.0)
[2016-10-06] MEDS ORDERED: ACETAMINOPHEN 325 MG TABLET PO ONE (14:16)
[2016-10-06] MEDS ORDERED: DIPHENHYDRAMINE HCL 50 MG/ML VIAL IV ONE (15:23)
[2016-10-06] MEDS ORDERED: METOCLOPRAMIDE HCL 10 MG TABLET PO PRN (18:31)
[2016-10-06] MEDS: RINGERS SOLUTION,LACTATED 1,000 ML IV PRN (19:02)
[2016-10-06] MEDS: ACETAMINOPHEN 325 MG TABLET PO PRN (20:01)
[2016-10-06] MEDS: METOCLOPRAMIDE HCL INJ/PF 10 MG/2 ML SDV IV PRN (20:03)
[2016-10-07] MEDS: RINGERS SOLUTION,LACTATED 1,000 ML IV PRN ×3 (01:19→18:43)
[2016-10-07] MEDS: ACETAMINOPHEN 325 MG TABLET PO PRN (02:02)
[2016-10-07] MEDS: METOCLOPRAMIDE HCL INJ/PF 10 MG/2 ML SDV IV PRN ×2 (02:03→09:05)
[2016-10-07] MEDS: PRENATAL VITAMIN W-O CA NO5/FE FUMARATE/FA CAPSULE PO SCH (09:05)
--- NOTE | 2016-10-07 10:30 | PDOC PROGRESS REPORT ---
Subjective Progress Note for:: 10/07/16 Subjective:: Patient reports still with vomiting once this morning and unable to tolerate liquids Physical Exam - Physical Exam Vital Signs: Temp Pulse Resp BP Pulse Ox 98.3 F 58 L 18 114/63 100 10/07/16 07:37 10/07/16 07:37 10/07/16 07:37 10/07/16 07:37 10/07/16 07:37 Intake & Output 10/06/16 10/07/16 10/08/16 06:59 06:59 06:59 Output Total 1250 Balance -1250 General appearance: PRESENT: disheveled, mild distress Mouth exam: PRESENT: moist Respiratory exam: PRESENT: clear to auscultation jordon Cardiovascular exam: PRESENT: RRR GI/Abdominal exam: PRESENT: normal bowel sounds, soft. ABSENT: distended, guarding, mass, organolmegaly, rebound, tenderness Extremities exam: PRESENT: full ROM. ABSENT: calf tenderness, clubbing, pedal edema Assessment & Plan - Diagnosis (1) Hyperemesis gravidarum Is this a current diagnosis for this admission?: YesPlan: continue iv fluid hydration. add zofran and pepcid to meds - Time Time Spent with patient: Less than 15 minutes Medications reviewed and adjusted accordingly: Yes Within: within 48 hours - Inpatient Certification Based on my medical assessment, after consideration of the patient's comorbidities, presenting symptoms, or acuity I expect that the services needed warrant INPATIENT care.: Yes I certify that my determination is in accordance with my understanding of Medicare's requirements for reasonable and necessary INPATIENT services [42 CFR 412.3e].: Yes Medical Necessity: Need For IV Fluids
[2016-10-07] MEDS: FAMOTIDINE INJ/PF 20 MG/2 ML SDV IV SCH (11:17)
[2016-10-07] MEDS: ONDANSETRON HCL INJ/PF 4 MG/2 ML SDV IV PRN (15:45)
[2016-10-08] MEDS: ONDANSETRON HCL INJ/PF 4 MG/2 ML SDV IV PRN (04:05)
[2016-10-08] MEDS: RINGERS SOLUTION,LACTATED 1,000 ML IV PRN (05:55)
--- NOTE | 2016-10-08 10:31 | PDOC PROGRESS REPORT ---
Subjective Progress Note for:: 10/08/16 Subjective:: pt reports continued nausea, continued emesis (5 episodes yesterday, only one measured). Physical Exam - Physical Exam Vital Signs: Temp Pulse Resp BP Pulse Ox 98.3 F 66 16 111/62 98 10/08/16 08:18 10/08/16 08:18 10/08/16 08:18 10/08/16 08:18 10/08/16 08:18 Intake & Output 10/07/16 10/08/16 10/09/16 06:59 06:59 06:59 Intake Total 8340 Output Total 1250 6900 Balance -1250 1440 General appearance: PRESENT: no acute distress, well-developed, well-nourished Respiratory exam: PRESENT: symmetrical, unlabored GI/Abdominal exam: PRESENT: normal bowel sounds, soft. ABSENT: firm, guarding, tenderness Rectal exam: PRESENT: deferred Extremities exam: PRESENT: full ROM, other - no SCDs on, pt unclothed completely and only covered with sheet upon entry into room.. ABSENT: calf tenderness, clubbing, pedal edema Neurological exam: PRESENT: alert, awake, oriented to person, oriented to place , oriented to time, oriented to situation, CN II-XII grossly intact. ABSENT: motor sensory deficit Psychiatric exam: PRESENT: appropriate affect, normal mood. ABSENT: homicidal ideation, suicidal ideation Skin exam: PRESENT: dry, intact, warm. ABSENT: cyanosis, rash Assessment & Plan - Diagnosis (1) Hyperemesis gravidarum Is this a current diagnosis for this admission?: YesPlan: Requested that staff monitor output with measuring emesis. Per nursing emesis is only spitting. Pt reportedly eating but reports no appetite in room with tray in front of her - she reports that she will try to eat though. She was cautioned that she needs to be able to tolerate po intake but that nausea will likely not completely resolve prior to discharge. She needs to be able to tolerate po intake and tolerate po medications. Will maximize po medications and re-evaluate in the afternoon. Needs repeat labs. - Time Time Spent with patient: Less than 15 minutes Critical Time spent with patient: Less than 15 minutes Medications reviewed and adjusted accordingly: Yes Anticipated discharge: Home Within: within 48 hours - Inpatient Certification Based on my medical assessment, after consideration of the patient's comorbidities, presenting symptoms, or acuity I expect that the services needed warrant INPATIENT care.: Yes I certify that my determination is in accordance with my understanding of Medicare's requirements for reasonable and necessary INPATIENT services [42 CFR 412.3e].: Yes Medical Necessity: Need Close Monitoring Due to Risk of Patient Decompensation, Need For IV Fluids Post Hospital Care: D/C Time Study Observer Documentation - Plan Summary Plan Summary: needs to be able to tolerate po intake and meds.
[2016-10-08] MEDS: FAMOTIDINE INJ/PF 20 MG/2 ML SDV IV SCH (10:53)
[2016-10-08] MEDS: PRENATAL VITAMIN W-O CA NO5/FE FUMARATE/FA CAPSULE PO SCH (10:53)
[2016-10-08 11:27] LABS: ABSOLUTE EOSINOPHILS # (AUTO) 0.2 10^3/uL (0.0-0.6); ABSOLUTE LYMPHOCYTES (AUTO) 4.7 10^3/uL (0.5-4.7); ABSOLUTE MONOCYTES (AUTO) 0.7 10^3/uL (0.1-1.4); BASOPHILS % (AUTO) 0.2 % (0-2); HEMATOCRIT 34.8 % (36.0-47.0); HGB HCT DIFFERENCE 0.6; LYMPHOCYTES % (AUTO) 48.9 % (13-45); MEAN CORPUSCULAR HEMOGLOBIN 28.4 pg (27.0-33.4); MEAN CORPUSCULAR HGB CONC 33.9 g/dL (32.0-36.0); MEAN CORPUSCULAR VOLUME 84 fl (80-97); MONOCYTES % (AUTO) 6.9 % (3-13); RED BLOOD COUNT 4.16 10^6/uL (3.72-5.28); RED CELL DISTRIBUTION WIDTH 13.4 % (11.5-14.0); WHITE BLOOD COUNT 9.6 10^3/uL (4.0-10.5)
[2016-10-08 11:35] LABS: HEMOGLOBIN 11.8 g/dL (12.0-15.5)
[2016-10-08 11:47] LABS: ALANINE AMINOTRANSFERASE 22 U/L (9-52); ALBUMIN 3.4 g/dL (3.5-5.0); ALKALINE PHOSPHATASE 56 U/L (38-126); ANION GAP 11 (5-19); ASPARTATE AMINO TRANSFERASE 18 U/L (14-36); BILIRUBIN,DIRECT 0.1 mg/dL (0.0-0.4); BILIRUBIN,TOTAL 0.4 mg/dL (0.2-1.3); BLOOD UREA NITROGEN 4 mg/dL (7-20); CALCIUM 9.5 mg/dL (8.4-10.2); CARBON DIOXIDE 25 mmol/L (22-30); CHLORIDE 102 mmol/L (98-107); CREATININE RESULT 0.58 mg/dL (0.52-1.25); GLUCOSE 72 mg/dL (75-110); POTASSIUM 3.5 mmol/L (3.6-5.0); SODIUM 137.9 mmol/L (137-145); TOTAL PROTEIN 5.8 g/dL (6.3-8.2)
--- NOTE | 2016-10-08 17:52 | PDOC DISCHARGE SUMMARY ---
General - Admit/Disc Date/PCP Admission Date/Primary Care Provider: 10/06/16 17:54 JEFF SERRATO MD Discharge Date: 10/08/16 - Discharge Diagnosis (1) Hyperemesis gravidarum Is this a current diagnosis for this admission?: YesSummary: stable with no meds in 12 hours and no emesis since before 0700. She was given expectations and will f/u in office with outpt meds. - Additional Information Resuscitation Status: Full Code Discharge Diet: As Tolerated Home Medications: Amoxicillin Trihydrate [Amoxil 500 mg Capsule] 500 mg PO TID #30 cap 09/25/13 Ondansetron [Zofran Odt 4 mg Tablet] 1 - 2 tab PO Q4H PRN #15 tab.rapdis Ibuprofen 800 mg PO Q8HP PRN #30 tablet 07/01/14 Nitrofurantoin/Nitrofuran Mac [Macrobid 100 mg Capsule] 100 mg PO BID #20 capsule 07/01/14 Phenazopyridine HCl [Pyridium 100 Mg Tablet] 100 mg PO TIDP PRN #7 tablet Docusate Sodium [Colace 100 mg Capsule] 100 mg PO DAILY #30 capsule 11/24/14 Sulfamethoxazole/Trimethoprim [Bactrim Ds Tablet] 1 each PO BID #10 tablet 11/24 Acetaminophen with Codeine [Tylenol #3 Tablet] 1 each PO Q6HP PRN #30 tablet Ibuprofen [Motrin 600 mg Tablet] 600 mg PO Q8HP PRN #90 tablet 04/30/15 Metoclopramide HCl [Reglan 10 mg Tablet] 10 mg PO Q6HP PRN #90 tablet 10/08/16 Ondansetron HCl [Zofran 4 mg Tablet] 1 - 2 tab PO Q4H PRN #30 tablet 10/08/16 Pnv W-O Ca No5/Fe Fumarate/FA [-U Multiple Vitamin Capsule] 1 cap PO DAILY #0 capsule 10/08/16 Ranitidine HCl [Zantac 150 mg Tablet] 150 mg PO BID #60 tablet 10/08/16 History of Present Illness Patient complains of: nausea and emesis History of Present Illness: ISIAH AYOUB is a 21 year old female with n/v of . She was managed inpatient and now is stable for discharge with po meds. Hospital Course Hospital Course: pt with hypersalivation. No true emesis since yesterday. stable for discharge to home on po meds. No antiemetics since 0400 this am. Physical Exam - Physical Exam Vital Signs: Temp Pulse Resp BP Pulse Ox 98.3 F 66 16 111/62 98 10/08/16 08:18 10/08/16 08:18 10/08/16 08:18 10/08/16 08:18 10/08/16 08:18 Intake & Output 10/07/16 10/08/16 10/09/16 06:59 06:59 06:59 Intake Total 8340 Output Total 1250 6900 Balance -1250 1440 General appearance: PRESENT: no acute distress, well-developed, well-nourished Head exam: PRESENT: atraumatic, normocephalic Respiratory exam: PRESENT: clear to auscultation jordon, symmetrical, unlabored Cardiovascular exam: PRESENT: RRR. ABSENT: diastolic murmur, rubs, systolic murmur GI/Abdominal exam: PRESENT: normal bowel sounds, soft. ABSENT: distended, guarding, mass, organolmegaly, rebound, tenderness Rectal exam: PRESENT: deferred Extremities exam: PRESENT: full ROM. ABSENT: calf tenderness, clubbing, pedal edema Neurological exam: PRESENT: alert, awake, oriented to person, oriented to place , oriented to time, oriented to situation, CN II-XII grossly intact. ABSENT: motor sensory deficit Psychiatric exam: PRESENT: appropriate affect, normal mood. ABSENT: homicidal ideation, suicidal ideation Skin exam: PRESENT: dry, intact, warm. ABSENT: cyanosis, rash Result Laboratory Results: 10/08/16 11:10 10/08/16 11:10 10/08/16 10/08/16 11:10 11:10 WBC 9.6 RBC 4.16 Hgb 11.8 L D Hct 34.8 L MCV 84 MCH 28.4 MCHC 33.9 RDW 13.4 Plt Count 247 Seg Neutrophils % 42.0 Lymphocytes % 48.9 H Monocytes % 6.9 Eosinophils % 2.0 Basophils % 0.2 Absolute Neutrophils 4.0 Absolute Lymphocytes 4.7 Absolute Monocytes 0.7 Absolute Eosinophils 0.2 Absolute Basophils 0.0 Sodium 137.9 Potassium 3.5 L Chloride 102 Carbon Dioxide 25 Anion Gap 11 BUN 4 L Creatinine 0.58 Est GFR ( Amer) > 60 Est GFR (Non-Af Amer) > 60 Glucose 72 L Calcium 9.5 Total Bilirubin 0.4 AST 18 ALT 22 Alkaline Phosphatase 56 Total Protein 5.8 L Albumin 3.4 L Plan Discharge Plan: Discharge to home. f/u in office Time Spent: Less than 30 Minutes
[2016-10-08 18:08] VITALS: BP 112/66
== END 2016-10-08 18:35 | disposition home or self-care (01) ==
LOC: ER 10:14 → EH 15:58 → UNDOADMIN 15:58 → EH 17:46 → 2N 17:46 → INTOOBSV 17:54
PROVIDERS: ADMIT Obstetrics & Gynecology; ATTEND Obstetrics & Gynecology
PROC: 3E033GC Introduction of Other Therapeutic Substance into Peripheral Vein, Percutaneous Approach (ICD-10-PCS; principal; 2016-10-06)
PROC: 3E033GC Introduction of Other Therapeutic Substance into Peripheral Vein, Percutaneous Approach (ICD-10-PCS; 2016-10-06)
PROC: 3E0337Z Introduction of Electrolytic and Water Balance Substance into Peripheral Vein, Percutaneous Approach (ICD-10-PCS; 2016-10-06)
DX: O21.0 Mild hyperemesis gravidarum (principal); O21.1 Hyperemesis gravidarum with metabolic disturbance; Z3A.11 11 weeks gestation of pregnancy
CPT/HCPCS: 99285; 96361; 96375; 96365; 36415 ×2; 84702; 83690; 85025 ×2; 80053 ×2; 81001; J3490 ×4; J1200; J2765 ×2; J2405 ×2; J7030; J7120 ×3; S0028 ×2

== ENCOUNTER 2016-10-17 12:23 | Emergency (ER) | payer MEDICAID ==
--- NOTE | 2016-10-17 13:08 | ER Document Report ---
ED GI/ - General Chief Complaint: Vaginal Bleeding Stated Complaint: ABDOMINAL PAIN Time seen by provider: 13:02 Mode of Arrival: Ambulatory Information source: Patient Notes: 21-year-old female presents to ED she is 13 weeks as generalized abdominal pain and spotting vaginal bleeding which started yesterday. Patient states he was enough to make a clean Red she was recently discharged from the hospital on the beginning of this month for hyperemesis. She is on medicine at home that the [facility] has put her on. TRAVEL OUTSIDE OF THE [place] IN LAST 30 DAYS: No - HPI Patient complains to provider of: Abdominal pain, , Vaginal bleeding - Spotting Onset: Yesterday Timing/Duration: Intermittent Quality of pain: Cramping Severity at maximum: Severe Severity in ED: Moderate Location: Other - Generalized Vaginal bleeding (Compared to normal period): Spotting Menstrual period history: : 3 Para: 1 OB ultrasound done: Yes Associated symptoms: Nausea Exacerbated by: Movement, Walking Relieved by: Denies Similar symptoms previously: Yes Recently seen / treated by doctor: Yes - Related Data Allergies/Adverse Reactions: promethazine [From Phenergan] Allergy (Verified 10/17/16 12:49) PRUITIS Past Medical History - General Information source: Patient - Social History Smoking Status: Former Smoker Cigarette use (# per day): No Chew tobacco use (# tins/day): No Smoking Education Provided: No Frequency of alcohol use: None Drug Abuse: None Lives with: Family Family History: Arthritis, DM, Hypertension Patient has suicidal ideation: No Patient has homicidal ideation: No - Past Medical History Cardiac Medical History: Reports: Hx Hypertension - GESTATIONAL Pulmonary Medical History: Reports: None EENT Medical History: Reports: None Neurological Medical History: Reports: Hx Migraine Endocrine Medical History: Reports: None Renal/ Medical History: Reports: None Malignancy Medical History: Reports: None GI Medical History: Reports: Hx Gastroesophageal Reflux Disease Musculoskeltal Medical History: Reports None Skin Medical History: Reports None Psychiatric Medical History: Reports: Hx Depression Traumatic Medical History: Reports: None Infectious Medical History: Reports: None Past Surgical History: Reports: Hx Appendectomy - 2010 - Immunizations Immunizations up to date: Yes Hx Diphtheria, Pertussis, Tetanus Vaccination: No Review of Systems - Review of Systems Constitutional: No symptoms reported EENT: No symptoms reported Cardiovascular: No symptoms reported Respiratory: No symptoms reported Gastrointestinal: Abdominal pain - Generalized, Nausea, Vomiting Genitourinary: No symptoms reported Female Genitourinary: , Vaginal bleeding - Spotting Musculoskeletal: No symptoms reported Skin: No symptoms reported Hematologic/Lymphatic: No symptoms reported Neurological/Psychological: No symptoms reported -: Yes All other systems reviewed and negative Physical Exam - Vital signs Vitals: Temp Pulse Resp BP Pulse Ox 98.3 F 86 18 114/77 98 10/17/16 12:48 10/17/16 12:48 10/17/16 12:48 10/17/16 12:48 10/17/16 12:48 Interpretation: Normal - General General appearance: Appears well, Alert In distress: Mild - HEENT Head: Normocephalic, Atraumatic Eyes: Normal Pupils: PERRL - Respiratory Respiratory status: No respiratory distress Chest status: Nontender Breath sounds: Normal Chest palpation: Normal - Cardiovascular Rhythm: Regular Heart sounds: Normal auscultation Murmur: No - Abdominal Inspection: Normal Distension: No distension Bowel sounds: Normal Tenderness: Tender - Generalized Organomegaly: No organomegaly - Back Back: Normal, Nontender - Extremities General upper extremity: Normal inspection, Nontender, Normal color, Normal ROM , Normal temperature General lower extremity: Normal inspection, Nontender, Normal color, Normal ROM , Normal temperature, Normal weight bearing. No: Sam's sign - Neurological Neuro grossly intact: Yes Cognition: Normal Orientation: AAOx4 Veda Coma Scale Eye Opening: Spontaneous Veda Coma Scale Verbal: Oriented [place] Coma Scale Motor: Obeys Commands [place] Coma Scale Total: 15 Speech: Normal Motor strength normal: LUE, RUE, LLE, RLE Sensory: Normal - Psychological Associated symptoms: Normal affect, Normal mood - Skin Skin Temperature: Warm Skin Moisture: Dry Skin Color: Normal Course - Re-evaluation Re-evalutation: 10/17/16 18:35 Labs discussed with patient and written report given to patient for follow-up with her primary doctor patient was given a IV of D5 normal saline with 20 of potassium for her low lab sodium and potassium and chloride and dehydration. Patient instructed to take her antinausea medicine as ordered follow-up with OB/ [facility] - Vital Signs Vital signs: Temp Pulse Resp BP Pulse Ox 98.4 F 80 18 106/63 99 10/17/16 17:16 10/17/16 17:16 10/17/16 17:16 10/17/16 17:16 10/17/16 17:16 - Laboratory Result Diagrams: 10/17/16 13:20 10/17/16 13:20 Laboratory results interpreted by me: 10/17/16 10/17/16 10/17/16 13:20 13:20 13:20 WBC 10.8 H Sodium 136.8 L Potassium 3.1 L Chloride 93 L Beta HCG, Quant 323406.00 H Urine Protein 100 H Urine Ketones 80 H Urine Urobilinogen 2.0 H Urine Ascorbic Acid 40 H Discharge - Discharge Clinical Impression: Dehydration during , Vaginal bleeding before 22 weeks gestation, Pelvic pain during in first trimester, antepartum Condition: Stable Disposition: HOME, SELF-CARE Instructions: Ob-Archival Records Clerk Doctors Additional Instructions: : You are . care is best started as early in as possible. If you're unsure about continuing this , you should discuss this with your physician or with deployment specialist at [facility]. You should take only medications approved by your physician. Acetaminophen can safely be taken for minor pains. As a rule, medication for chronic conditions such as asthma or seizures can safely be continued. You should discuss with the physician every medicine you take. Any regular exercise program can be continued. Talk to your physician, however, before engaging in competitive or demanding sports. Alcohol, smoking, and "street drugs" are dangerous to your baby. Cocaine is especially dangerous. Don't use any illicit drugs! BLEEDING DURING EARLY : You have been evaluated for passing blood while . While we take this symptom very seriously, most women with your degree of bleeding will go on to have a perfectly normal baby. At this time, there is no indication that a miscarriage will occur. (A miscarriage occurs when the fetus is abnormal. There is no medicine or treatment to prevent it.) A more serious cause of bleeding is tubal (or ectopic) . An ultrasound usually can show whether the is in the uterus or in the tube. Sometimes in early , no fetus is seen. In this case, careful follow-up, including repeat blood tests and repeat ultrasound, is necessary. Do not douche or have sex for at least a week, or until OK'd by the doctor. Don't use tampons. Call the doctor or return for re-examination if there is an increase in bleeding or cramping, extreme weakness, fainting, new abdominal pain, fever, or passage of tissue. Dehydration Dehydration can result from vomiting or diarrhea, fever, or decreased intake of fluids. If severe, hospitalization and intravenous fluids may be required. Most cases are treated at home with fluids by mouth. For the next 24 hours, drink lots of clear fluids. In mild cases, this can be soda pop or sports drinks. For more severe dehydration, the doctor may recommend special fluids such as Pedialyte or Lytren. Try to get three liters ( 3 quarts) of fluid per day. If vomiting occurs, continue to drink the fluids frequently (every 15 to 20 minutes), but in small amounts (one or two ounces). Depending on the type of dehydration, the doctor may prescribe antinausea medicine or potassium replacements. Call the doctor or return for re-examination if you become progressively weak, vomit repeatedly, or have other new symptoms. Intravenous (IV) Fluids As part of your care today, you received intravenous (IV) fluids. IV fluids are administered to patients who are dehydrated or to those who have certain chemical (electrolyte) abnormalities that need correcting. Please complete the patient's satisfaction survey if you get one and return. If you do not receive a survey you can go to [facility] website [email or web address] and place your comments about your very good care. Thank you very much. It was a pleasure be in your medical provider today. FOLLOW-UP CARE: Follow-up with [facility] tomorrow by telephone to schedule a follow-up visit. If you experience worsening or a significant change in your symptoms (very heavy bleeding with large clots of blood, passage of tissue, more severe abdominal / pelvic pain or cramping, feeling faint or severe weakness, fever, etc.), notify the physician immediately or return to the Emergency Department at any time for re-evaluation. OBSTETRIC-GYNECOLOGIC (OB-[facility]CREEN [facility]) PHYSICIANS IN [place]: [facility] [address] [place] [address] [phone] For active duty and dependents diagnosed with a threatened or miscarriage, you should follow up in the following manner: Standard patients who have a local civilian provider should follow up with that provider. Patients of the Family Practice Clinic should call your Team Nurse at 8: 00 am the following morning for further instructions. If you are neither a Standard patient nor a patient of the Family Practice Clinic, you should follow up at the [facility] ([facility]) . Patients already enrolled in the [facility] OB Clinic, Prime patients not assigned to the Family Practice Clinic, and Active Duty patients not assigned to Family Practice Clinic should report to the [facility] Lab at 8:00 am the next morning that the [facility] OB Clinic is open and then you will be seen in the OB Clinic at 11:00 am.
[2016-10-17 13:48] LABS: ABSOLUTE BASOPHILS # (AUTO) 0.1 10^3/uL (0.0-0.2); ABSOLUTE EOSINOPHILS # (AUTO) 0.1 10^3/uL (0.0-0.6); ABSOLUTE LYMPHOCYTES (AUTO) 3.3 10^3/uL (0.5-4.7); ABSOLUTE MONOCYTES (AUTO) 0.9 10^3/uL (0.1-1.4); ABSOLUTE NEUT (AUTO) 6.5 10^3/uL (1.7-8.2); BASOPHILS % (AUTO) 0.7 % (0-2); EOSINOPHILS % (AUTO) 0.9 % (0-6); HEMATOCRIT 42.6 % (36.0-47.0); HEMOGLOBIN 14.6 g/dL (12.0-15.5); HGB HCT DIFFERENCE 1.2; MEAN CORPUSCULAR HEMOGLOBIN 28.3 pg (27.0-33.4); MEAN CORPUSCULAR HGB CONC 34.3 g/dL (32.0-36.0); MEAN CORPUSCULAR VOLUME 83 fl (80-97); MONOCYTES % (AUTO) 8.3 % (3-13); RED BLOOD COUNT 5.16 10^6/uL (3.72-5.28); RED CELL DISTRIBUTION WIDTH 12.9 % (11.5-14.0); SEGMENTED NEUTROPHILS % (AUTO) 60.1 % (42-78); WHITE BLOOD COUNT 10.8 10^3/uL (4.0-10.5)
[2016-10-17 14:03] LABS: APPEARANCE,URINE SLIGHTLY-CLOUDY; BILIRUBIN,URINE NEGATIVE (NEGATIVE); GLUCOSE, URINE NEGATIVE (NEGATIVE); KETONES,URINE 80 mg/dL (NEGATIVE); LEUKOCYTE ESTERASE,URINE NEGATIVE (NEGATIVE); NITRITE,URINE NEGATIVE (NEGATIVE); PROTEIN,URINE 100 mg/dL (NEGATIVE); URINE SPECIFIC GRAVITY 1.031
[2016-10-17 14:06] LABS: ALANINE AMINOTRANSFERASE 23 U/L (9-52); ALBUMIN 4.7 g/dL (3.5-5.0); ALKALINE PHOSPHATASE 89 U/L (38-126); ANION GAP 17 (5-19); ASPARTATE AMINO TRANSFERASE 22 U/L (14-36); BILIRUBIN,DIRECT 0.3 mg/dL (0.0-0.4); BILIRUBIN,TOTAL 0.7 mg/dL (0.2-1.3); BLOOD UREA NITROGEN 7 mg/dL (7-20); CALCIUM 10.1 mg/dL (8.4-10.2); CARBON DIOXIDE 27 mmol/L (22-30); CHLORIDE 93 mmol/L (98-107); CREATININE RESULT 0.84 mg/dL (0.52-1.25); GLUCOSE 97 mg/dL (75-110); POTASSIUM 3.1 mmol/L (3.6-5.0); SODIUM 136.8 mmol/L (137-145); TOTAL PROTEIN 8.1 g/dL (6.3-8.2)
[2016-10-17] MEDS ORDERED: POTASSI CL 20 MEQ/D5NS 1L 1,000 ML IV ONE (14:31)
[2016-10-17] MEDS ORDERED: ONDANSETRON HCL INJ/PF 4 MG/2 ML SDV IV ONE (15:43)
[2016-10-17 17:21] VITALS: BP 106/63
== END 2016-10-17 17:20 | disposition home or self-care (01) ==
LOC: ER 12:23
DX: E86.0 Dehydration (principal); O46.91 Antepartum hemorrhage, unspecified, first trimester; R10.2 Pelvic and perineal pain; N93.9 Abnormal uterine and vaginal bleeding, unspecified; R10.9 Unspecified abdominal pain; Z3A.13 13 weeks gestation of pregnancy; O21.0 Mild hyperemesis gravidarum; Z87.891 Personal history of nicotine dependence
CPT/HCPCS: 99284; 96375; 96365; 96366; 36415; 84702; 83735; 85025; 80053; 81001; J3480; J2405

== ENCOUNTER 2016-11-05 01:02 | Emergency (ER) | payer MEDICAID ==
[2016-11-05 01:13] VITALS: BP 129/87
== END 2016-11-05 05:30 | disposition left against medical advice (07) ==
LOC: ER 01:02
DX: Z53.21 Procedure and treatment not carried out due to patient leaving prior to being seen by health care provider (principal)

== ENCOUNTER 2017-01-21 16:15 | Outpatient (CLI) | payer SELFPAY ==
[2017-01-21 17:29] LABS: ABSOLUTE BASOPHILS # (AUTO) 0.1 10^3/uL (0.0-0.2); ABSOLUTE EOSINOPHILS # (AUTO) 0.3 10^3/uL (0.0-0.6); ABSOLUTE LYMPHOCYTES (AUTO) 3.9 10^3/uL (0.5-4.7); ABSOLUTE MONOCYTES (AUTO) 0.9 10^3/uL (0.1-1.4); ABSOLUTE NEUT (AUTO) 9.2 10^3/uL (1.7-8.2); BASOPHILS % (AUTO) 0.6 % (0-2); HEMATOCRIT 35.7 % (36.0-47.0); HEMOGLOBIN 11.5 g/dL (12.0-15.5); HGB HCT DIFFERENCE -1.2; LYMPHOCYTES % (AUTO) 27.2 % (13-45); MEAN CORPUSCULAR HGB CONC 32.1 g/dL (32.0-36.0); MEAN CORPUSCULAR VOLUME 84 fl (80-97); MONOCYTES % (AUTO) 6.1 % (3-13); RED BLOOD COUNT 4.25 10^6/uL (3.72-5.28); SEGMENTED NEUTROPHILS % (AUTO) 64.1 % (42-78); WHITE BLOOD COUNT 14.3 10^3/uL (4.0-10.5)
[2017-01-21 17:36] LABS: APPEARANCE,URINE CLEAR; BILIRUBIN,URINE NEGATIVE (NEGATIVE); GLUCOSE, URINE NEGATIVE (NEGATIVE); KETONES,URINE TRACE mg/dL (NEGATIVE); LEUKOCYTE ESTERASE,URINE NEGATIVE (NEGATIVE); NITRITE,URINE NEGATIVE (NEGATIVE); PROTEIN,URINE NEGATIVE (NEGATIVE); URINE SPECIFIC GRAVITY 1.013; UROBILINOGEN,URINE NEGATIVE mg/dL (<2.0)
[2017-01-21 17:51] LABS: URINE BARBITURATES SCREEN NEGATIVE; URINE METHADONE SCREEN NEGATIVE; URINE OPIATES LOW NEGATIVE; URINE PHENCYCLIDINE SCREEN NEGATIVE
[2017-01-21] MEDS ORDERED: BETAMET ACET/BETAMET NA INJ 6 MG/1 ML ONE (18:13)
[2017-01-21] MEDS ORDERED: MAGNESIUM SULFATE 4 GM/100 ML RTUPB IV ONE (18:13)
[2017-01-21] MEDS ORDERED: PENICILLIN G-K 5 MILLION UNIT VIAL ONE (18:16)
[2017-01-21] MEDS ORDERED: MAGNESIUM SULFATE 500 ML IV PRN (18:20)
[2017-01-21] MEDS ORDERED: MAGNESIUM SULFATE 100 ML IV ONE (18:20)
[2017-01-21] MEDS ORDERED: PENICILLIN G POTASSIUM 5,000,000 UNIT in DEXTROSE 5%-WATER 100 ML IV ONE (18:23)
[2017-01-21 18:27] LABS: ADD HIVPANEL? NO; HIV (1 AND 2) ANTIBODY NEGATIVE (NEGATIVE)
[2017-01-21] MEDS ORDERED: BETAMET ACET/BETAMET NA INJ 6 MG/1 ML IM SCH (18:30)
--- NOTE | 2017-01-21 18:53 | RADIOLOGY REPORT (SQ) ---
EXAM DESCRIPTION: U/S OB 14+ TA/1 GEST W/DOPPLER COMPLETED DATE/TIME: 01/21/2017 6:38 pm REASON FOR STUDY: NPC, STATUS, PLACENTA LOCAL, CERVICAL LENGTH COMPARISON: 09/08/2016 TECHNIQUE: Limited transabdominal grayscale ultrasound for evaluation of specific requested obstetri fifi parameters. LIMITATIONS: incomplete examination performed. FINDINGS: Open cervix. IMPRESSION: LIMITED OBSTETRICAL ULTRASOUND DEMONSTRATING OPEN CERVIX. LABOR AND DELIVERY WAS NOTIFIED BY IMAGE PROCESSING ENGINEER AT BEGINNING OF EXAMINATION. TECHNICAL DOCUMENTATION: JOB ID: [id number] [email or web address]- All Rights Reserved
[2017-01-21] MEDS ORDERED: ONDANSETRON 4 MG TAB.RAPDIS PO ONE (19:30)
[2017-01-21] MEDS ORDERED: ONDANSETRON 4 MG TAB.RAPDIS ONE (19:31)
[2017-01-21 19:53] LABS: APPEARANCE,URINE CLEAR; BILIRUBIN,URINE NEGATIVE (NEGATIVE); GLUCOSE, URINE NEGATIVE (NEGATIVE); KETONES,URINE NEGATIVE (NEGATIVE); LEUKOCYTE ESTERASE,URINE NEGATIVE (NEGATIVE); NITRITE,URINE NEGATIVE (NEGATIVE); PROTEIN,URINE NEGATIVE (NEGATIVE); URINE SPECIFIC GRAVITY 1.002; UROBILINOGEN,URINE NEGATIVE mg/dL (<2.0)
[2017-01-21 20:39] LABS: CHLAM PCR DETECTED (NOT DETECT)
[2017-01-21] MEDS ORDERED: CEFTRIAXONE INJ 250 MG VIAL IM ONE (20:55)
[2017-01-21] MEDS ORDERED: CEFTRIAXONE INJ 1000 MG VIAL ONE (21:00)
[2017-01-21] MEDS ORDERED: AZITHROMYCIN 250 MG TABLET ONE (21:01)
[2017-01-21] MEDS ORDERED: LIDOCAINE 1% INJ-PF (10 MG/ML) 30 ML SDV ONE (21:02)
[2017-01-21] MEDS ORDERED: AZITHROMYCIN 1 GM SUSP PACKET PO ONE (22:00)
[2017-01-21] MEDS ORDERED: PENICILLIN G POTASSIUM 2,500,000 UNIT in DEXTROSE 5%-WATER 50 ML IV SCH (22:23)
[2017-01-23 06:38] LABS: HEPATITIS C VIRUS AB <0.1 s/co ratio (0.0-0.9)
== END 2017-01-21 22:03 | disposition short-term general hospital (02) ==
LOC: LC 16:15
PROVIDERS: ATTEND Obstetrics & Gynecology
PROC: 4A1HXCZ Monitoring of Products of Conception, Cardiac Rate, External Approach (ICD-10-PCS; principal; 2017-01-21)
DX: O60.02 Preterm labor without delivery, second trimester (principal); Z3A.27 27 weeks gestation of pregnancy
CPT/HCPCS: 59899; 86900; 86901; 36415; 87086; 87210; 86850; 85025; 86762; 86592; 81001; 87081; 87340; 86701; 80307; 87491; 87591; 86803; 86804; 76805; 93976; J3475; S0119; J3490; J2540; J0702; J0696; Q0144

== ENCOUNTER 2017-03-20 15:37 | Outpatient (CLI) | payer SELFPAY ==
[2017-03-20 16:45] LABS: APPEARANCE,URINE CLEAR; BILIRUBIN,URINE NEGATIVE (NEGATIVE); GLUCOSE, URINE NEGATIVE (NEGATIVE); KETONES,URINE NEGATIVE (NEGATIVE); LEUKOCYTE ESTERASE,URINE NEGATIVE (NEGATIVE); NITRITE,URINE NEGATIVE (NEGATIVE); PROTEIN,URINE NEGATIVE (NEGATIVE); URINE SPECIFIC GRAVITY 1.004; UROBILINOGEN,URINE NEGATIVE mg/dL (<2.0)
[2017-03-20 16:59] LABS: URINE BARBITURATES SCREEN NEGATIVE; URINE METHADONE SCREEN NEGATIVE; URINE OPIATES LOW NEGATIVE; URINE PHENCYCLIDINE SCREEN NEGATIVE
[2017-03-20 17:01] LABS: URINE CREATININE 38.3 mg/dL (16-327); URINE PROTEIN 17.3 mg/dL (<12)
[2017-03-20 17:04] LABS: ABSOLUTE BASOPHILS # (AUTO) 0.1 10^3/uL (0.0-0.2); ABSOLUTE EOSINOPHILS # (AUTO) 0.3 10^3/uL (0.0-0.6); ABSOLUTE LYMPHOCYTES (AUTO) 5.2 10^3/uL (0.5-4.7); ABSOLUTE MONOCYTES (AUTO) 1.1 10^3/uL (0.1-1.4); ABSOLUTE NEUT (AUTO) 7.8 10^3/uL (1.7-8.2); BASOPHILS % (AUTO) 0.6 % (0-2); EOSINOPHILS % (AUTO) 2.1 % (0-6); HEMATOCRIT 29.9 % (36.0-47.0); HEMOGLOBIN 10.3 g/dL (12.0-15.5); LYMPHOCYTES % (AUTO) 35.9 % (13-45); MEAN CORPUSCULAR HEMOGLOBIN 27.7 pg (27.0-33.4); MEAN CORPUSCULAR HGB CONC 34.4 g/dL (32.0-36.0); MEAN CORPUSCULAR VOLUME 81 fl (80-97); MONOCYTES % (AUTO) 7.8 % (3-13); RED BLOOD COUNT 3.71 10^6/uL (3.72-5.28); RED CELL DISTRIBUTION WIDTH 14.8 % (11.5-14.0); SEGMENTED NEUTROPHILS % (AUTO) 53.6 % (42-78); WHITE BLOOD COUNT 14.5 10^3/uL (4.0-10.5)
[2017-03-20 17:21] LABS: ALANINE AMINOTRANSFERASE 21 U/L (9-52); ALBUMIN 3.6 g/dL (3.5-5.0); ALKALINE PHOSPHATASE 141 U/L (38-126); ANION GAP 12 (5-19); ASPARTATE AMINO TRANSFERASE 20 U/L (14-36); BILIRUBIN,DIRECT 0.3 mg/dL (0.0-0.4); BILIRUBIN,TOTAL 0.3 mg/dL (0.2-1.3); BLOOD UREA NITROGEN 5 mg/dL (7-20); CALCIUM 9.4 mg/dL (8.4-10.2); CARBON DIOXIDE 22 mmol/L (22-30); CHLORIDE 103 mmol/L (98-107); CREATININE RESULT 0.82 mg/dL (0.52-1.25); GLUCOSE 75 mg/dL (75-110); LDH 443 U/L (313-618); POTASSIUM 3.6 mmol/L (3.6-5.0); SODIUM 136.8 mmol/L (137-145); TOTAL PROTEIN 6.4 g/dL (6.3-8.2); URIC ACID 4.1 mg/dL (2.5-6.2)
== END 2017-03-20 18:10 | disposition home or self-care (01) ==
LOC: LC 15:37
PROVIDERS: ATTEND Student in an Organized Health Care Education/Training Program
PROC: 4A1HXCZ Monitoring of Products of Conception, Cardiac Rate, External Approach (ICD-10-PCS; principal; 2017-03-20)
DX: O47.03 False labor before 37 completed weeks of gestation, third trimester (principal); Z3A.35 35 weeks gestation of pregnancy
CPT/HCPCS: 36415; 59025; 80053; 80307; 81001; 82570; 83615; 84156; 84550; 85025

== ENCOUNTER 2017-08-26 17:24 | Emergency (ER) | payer OTHER ==
[2017-08-26] MEDS ORDERED: ACETAMINOPHEN 325 MG TABLET PO ONE (17:59)
--- NOTE | 2017-08-26 18:04 | ER Document Report ---
ED Medical Screen (RME) - General Chief Complaint: Vaginal spotting, lower abdominal pain Stated Complaint: ABDOMINAL/BACK PAIN, VAGINAL DISCHARGE Time Seen by Provider: 08/26/17 17:58 Mode of Arrival: Ambulatory Information source: Patient Notes: Pt is a who presents at 13 weeks for abd pressure, spotting x 2 days. denies ever needing rhogam. TRAVEL OUTSIDE OF THE [place] IN LAST 30 DAYS: No - Related Data Allergies/Adverse Reactions: promethazine [From Phenergan] Adverse Reaction (Verified 04/18/17 14:16) PRUITIS Past Medical History - General Information source: Patient - Past Medical History Cardiac Medical History: Reports: Hx Hypertension - GESTATIONAL Neurological Medical History: Reports: Hx Migraine Renal/ Medical History: Denies: Hx Peritoneal Dialysis GI Medical History: Reports: Hx Gastroesophageal Reflux Disease Psychiatric Medical History: Reports: Hx Depression Past Surgical History: Reports: Hx Appendectomy - 2009 - Immunizations Immunizations up to date: Yes Hx Diphtheria, Pertussis, Tetanus Vaccination: No History of Influenza Vaccine for 04/2017 - 09/2017 Season: Unknown Review of Systems - Review of Systems Female Genitourinary: See HPI Physical Exam - Vital signs Vitals: Temp Pulse Resp BP Pulse Ox 98.7 F 69 20 102/68 100 08/26/17 17:52 08/26/17 17:52 08/26/17 17:52 08/26/17 17:52 08/26/17 17:52 - Notes Notes: general: NAD abd: mild tenderness suprapubic Course - Vital Signs Vital signs: Temp Pulse Resp BP Pulse Ox 98.7 F 69 20 102/68 100 08/26/17 17:52 08/26/17 17:52 08/26/17 17:52 08/26/17 17:52 08/26/17 17:52
[2017-08-26 19:09] LABS: APPEARANCE,URINE SLIGHTLY-CLOUDY; BILIRUBIN,URINE NEGATIVE (NEGATIVE); COLOR,URINE YELLOW; GLUCOSE, URINE NEGATIVE (NEGATIVE); KETONES,URINE NEGATIVE (NEGATIVE); LEUKOCYTE ESTERASE,URINE MODERATE (NEGATIVE); NITRITE,URINE NEGATIVE (NEGATIVE); PROTEIN,URINE NEGATIVE (NEGATIVE); URINE SPECIFIC GRAVITY 1.023
[2017-08-26 19:15] LABS: ABSOLUTE BASOPHILS # (AUTO) 0.1 10^3/uL (0.0-0.2); ABSOLUTE EOSINOPHILS # (AUTO) 0.3 10^3/uL (0.0-0.6); ABSOLUTE LYMPHOCYTES (AUTO) 4.5 10^3/uL (0.5-4.7); ABSOLUTE MONOCYTES (AUTO) 0.5 10^3/uL (0.1-1.4); ABSOLUTE NEUT (AUTO) 6.2 10^3/uL (1.7-8.2); BASOPHILS % (AUTO) 0.8 % (0-2); EOSINOPHILS % (AUTO) 2.7 % (0-6); HEMATOCRIT 37.1 % (36.0-47.0); HEMOGLOBIN 11.6 g/dL (12.0-15.5); LYMPHOCYTES % (AUTO) 38.7 % (13-45); MEAN CORPUSCULAR HGB CONC 31.3 g/dL (32.0-36.0); MEAN CORPUSCULAR VOLUME 83 fl (80-97); RED BLOOD COUNT 4.47 10^6/uL (3.72-5.28); RED CELL DISTRIBUTION WIDTH 14.7 % (11.5-14.0); SEGMENTED NEUTROPHILS % (AUTO) 53.8 % (42-78); TOTAL CELLS COUNTED % (AUTO) 100 %; WHITE BLOOD COUNT 11.6 10^3/uL (4.0-10.5)
[2017-08-26 19:33] LABS: ANION GAP 14 (5-19); BLOOD UREA NITROGEN 6 mg/dL (7-20); CALCIUM 9.4 mg/dL (8.4-10.2); CARBON DIOXIDE 17 mmol/L (22-30); CHLORIDE 107 mmol/L (98-107); GLUCOSE 64 mg/dL (75-110); POTASSIUM 4.1 mmol/L (3.6-5.0); SODIUM 137.6 mmol/L (137-145)
[2017-08-26 19:37] LABS: PLATELET COUNT 250 10^3/uL (150-450)
--- NOTE | 2017-08-26 19:46 | ER Document Report ---
ED General - General Chief Complaint: Vaginal spotting, lower abdominal pain Stated Complaint: ABDOMINAL/BACK PAIN, VAGINAL DISCHARGE Time Seen by Provider: 08/26/17 17:58 Mode of Arrival: Ambulatory Information source: Patient Notes: 21-year-old female presents stating that she is 14 weeks with concerns of vaginal spotting. Patient notes the spotting is a mild, she denies any heavy bleeding or clots. Patient notes she has vaginal discharge similar to her previous episodes. She admits to mild abdominal cramping denies any nausea vomiting or diarrhea patient denies any concerns for STDs. TRAVEL OUTSIDE OF THE [place] IN LAST 30 DAYS: No - HPI Onset: This morning Onset/Duration: Sudden Quality of pain: Cramping Severity: Mild Pain Level: 1 Associated symptoms: Other Exacerbated by: Denies Relieved by: Denies Similar symptoms previously: No Recently seen / treated by doctor: Yes - Related Data Allergies/Adverse Reactions: promethazine [From Phenergan] Adverse Reaction (Verified 04/18/17 14:16) PRUITIS Past Medical History - General Information source: Patient - Social History Smoking Status: Never Smoker Cigarette use (# per day): No Chew tobacco use (# tins/day): No Smoking Education Provided: No Family History: Arthritis, DM, Hypertension - Past Medical History Cardiac Medical History: Reports: Hx Hypertension - GESTATIONAL Neurological Medical History: Reports: Hx Migraine Renal/ Medical History: Denies: Hx Peritoneal Dialysis GI Medical History: Reports: Hx Gastroesophageal Reflux Disease Psychiatric Medical History: Reports: Hx Depression Past Surgical History: Reports: Hx Appendectomy - 2010 - Immunizations Immunizations up to date: Yes Hx Diphtheria, Pertussis, Tetanus Vaccination: No Review of Systems - Review of Systems Notes: REVIEW OF SYSTEMS: CONSTITUTIONAL : Denies fever, chills, or sweats. Denies recent illness. EENT: Denies eye, ear, throat, or mouth pain or symptoms. Denies nasal or sinus congestion or discharge. Denies throat, tongue, or mouth swelling or difficulty swallowing. CARDIOVASCULAR: Denies chest pain. Denies palpitations or racing or irregular heart beat. Denies ankle edema. RESPIRATORY: Denies cough, cold, or chest congestion. Denies shortness of breath, difficulty breathing, or wheezing. GASTROINTESTINAL: Denies abdominal pain or distention. Denies nausea, vomiting , or diarrhea. Denies blood in vomitus, stools, or per rectum. Denies black, tarry stools. Denies constipation. GENITOURINARY: Denies difficulty urinating, painful urination, burning, frequency, blood in urine, or discharge. FEMALE GENITOURINARY: Admits to vaginal bleeding MUSCULOSKELETAL: Denies back or neck pain or stiffness. Denies joint pain or swelling. SKIN: Denies rash, lesions or sores. HEMATOLOGIC : Denies easy bruising or bleeding. LYMPHATIC: Denies swollen, enlarged glands. NEUROLOGICAL: Denies confusion or altered mental status. Denies passing out or loss of consciousness. Denies dizziness or lightheadedness. Denies headache. Denies weakness or paralysis or loss of use of either side. Denies problems with gait or speech. Denies sensory loss, numbness, or tingling. Denies seizures. PSYCHIATRIC: Denies anxiety or stress. Denies depression, suicidal ideation, or homicidal ideation. ALL OTHER SYSTEMS REVIEWED AND NEGATIVE. PHYSICAL EXAMINATION: GENERAL: Well-appearing, well-nourished and in no acute distress. HEAD: Atraumatic, normocephalic. EYES: Pupils equal round and reactive to light, extraocular movements intact, conjunctiva are normal. ENT: Nares patent, oropharynx clear without exudates. Moist mucous membranes. NECK: Normal range of motion, supple without lymphadenopathy LUNGS: Breath sounds clear to auscultation bilaterally and equal. No wheezes rales or rhonchi. HEART: Regular rate and rhythm without murmurs ABDOMEN: Soft, nontender, nondistended abdomen. No guarding, no rebound. No masses appreciated. Female : deferred Musculoskeletal: Normal range of motion, no pitting or edema. No cyanosis. NEUROLOGICAL: Cranial nerves grossly intact. Normal speech, normal gait. Normal sensory, motor exams PSYCH: Normal mood, normal affect. SKIN: Warm, Dry, normal turgor, no rashes or lesions noted. Dictation was performed using [employer] voice recognition software Physical Exam - Vital signs Vitals: Temp Pulse Resp BP Pulse Ox 98.7 F 69 20 102/68 100 08/26/17 17:52 08/26/17 17:52 08/26/17 17:52 08/26/17 17:52 08/26/17 17:52 Course - Re-evaluation Re-evalutation: 02/19/18 23:44 Ultrasound was consistent with a 14 week , no cervical opening was noted, nonetheless it is still concerning for threatened miscarriage, patient has O+ blood type and does not require RhoGam Patient overall looks well is in no distress and will be discharged home with close follow-up with [facility] patient is very happy with this plan After performing a Medical Screening Examination, I estimate there is LOW risk for ACUTE APPENDICITIS, BOWEL OBSTRUCTION, ACUTE CHOLECYSTITIS, PERFORATED DIVERTICULITIS, INCARCERATED HERNIA, PANCREATITIS, PELVIC INFLAMMATORY DISEASE, PERFORATED ULCER, ECTOPIC , or TUBO-OVARIAN ABSCESS, thus I consider the discharge disposition reasonable. Also, there is no evidence or peritonitis , sepsis, or toxicity. I have reevaluated this patient multiple times and no significant life threatening changes are noted. The patient and I have discussed the diagnosis and risks, and we agree with discharging home with close follow-up with the understanding that symptoms and presentations can change. We also discussed returning to the Emergency Department immediately if new or worsening symptoms occur. We have discussed the symptoms which are most concerning (e.g., bloody stool, fever, changing or worsening pain, vomiting) that necessitate immediate return. - Vital Signs Vital signs: Temp Pulse Resp BP Pulse Ox 98.9 F 63 18 121/75 99 08/26/17 21:27 08/26/17 21:27 08/26/17 21:27 08/26/17 21:27 08/26/17 21:27 - Laboratory Result Diagrams: 08/26/17 18:35 08/26/17 18:35 Laboratory results interpreted by me: 08/26/17 08/26/17 08/26/17 18:35 18:35 18:35 WBC 11.6 H Hgb 11.6 L MCH 26.0 L MCHC 31.3 L RDW 14.7 H Carbon Dioxide 17 L BUN 6 L Glucose 64 L Beta HCG, Quant 241641.00 H Urine Urobilinogen 4.0 H Ur Leukocyte Esterase MODERATE H - Diagnostic Test Radiology reviewed: Image reviewed, Reports reviewed Discharge - Discharge Clinical Impression: Threatened miscarriage in early , Vaginal bleeding Condition: Stable Disposition: HOME, SELF-CARE Instructions: Threatened Miscarriage ([facility]) Additional Instructions: Follow up with your physician tomorrow for further care or return to the ED IMMEDIATELY if symptoms worsen or new concerns occur. If you cannot afford to follow up with your primary care physician a list of low cost clinics have been provided at the end of your discharge papers as well.
--- NOTE | 2017-08-26 20:31 | RADIOLOGY REPORT (SQ) ---
EXAM DESCRIPTION: U/S [id number] TRNABD 1GES W/ODOP COMPLETED DATE/TIME: 08/26/2017 8:06 pm REASON FOR STUDY: abd pain, spotting COMPARISON: None. TECHNIQUE: Transabdominal static and realtime grayscale images acquired of the pelvis. Additional se lected spectral and color Doppler images recorded. All images stored on PACs. bHCG: Not available LIMITATIONS: None. FINDINGS: FETUS: Living intrauterine . EGA: 12 weeks 4 days KEVIN: 03/04/2018 FHR: 147 beats per minute. SUBCHORIONIC BLEED: No SIZE OF BLEED: Not applicable. UTERUS: No masses. No anomalies. CERVICAL LENGTH: 3.7 cm Closed. RIGHT ADNEXA: Ovary not identified. No adnexal free fluid. No adnexal masses. LEFT ADNEXA: Ovary not identified. No adnexal free fluid. No adnexal masses. FREE FLUID: None. OTHER: No other significant finding. IMPRESSION: LIVING INTRAUTERINE . EGA 12 weeks 4 days Trimester of : First - 0 to 13 weeks. TECHNICAL DOCUMENTATION: JOB ID: [id number] [employer]- All Rights Reserved
[2017-08-26 22:00] VITALS: BP 121/75
== END 2017-08-26 21:30 | disposition home or self-care (01) ==
LOC: ER 17:24
DX: O20.0 Threatened abortion (principal); O26.852 Spotting complicating pregnancy, second trimester; Z3A.14 14 weeks gestation of pregnancy
CPT/HCPCS: 36415; 76801; 80048; 81001; 84702; 85025; 86900; 86901; 99284

== ENCOUNTER 2017-09-21 16:39 | Emergency (ER) | payer OTHER ==
[2017-09-21 16:55] VITALS: BP 110/58
[2017-09-21] MEDS ORDERED: METOCLOPRAMIDE HCL INJ/PF 10 MG/2 ML SDV IV ONE (17:17)
[2017-09-21] MEDS ORDERED: NORMAL SALINE 1000 ML 1,000 ML IV ONE (17:17)
[2017-09-21] MEDS ORDERED: DIPHENHYDRAMINE HCL 50 MG/ML VIAL IV ONE (17:18)
--- NOTE | 2017-09-21 17:18 | ER Document Report ---
ED Medical Screen (RME) - General Chief Complaint: Headache Stated Complaint: HEADACHE Time Seen by Provider: 09/21/17 17:10 Mode of Arrival: Ambulatory Information source: Patient Notes: 22 y.o female presents to the ED with a headache of onset yesterday around 1600 while she was lying down. Pt reports that she is 16 weeks . A1. She denies any fluid loss, vaginal discharge or vaginal bleeding. I have greeted and performed a rapid initial assessment of the patient. A comprehensive ED assessment and evaluation of the patient, analysis of test results, and completion of the medical decision making process will be conducted by additional ED providers. TRAVEL OUTSIDE OF THE [place] IN LAST 30 DAYS: No - Related Data Allergies/Adverse Reactions: promethazine [From Phenergan] Adverse Reaction (Verified 09/21/17 17:10) PRUITIS Past Medical History - General Information source: Patient - Social History Chew tobacco use (# tins/day): No Frequency of alcohol use: None Drug Abuse: None - Past Medical History Cardiac Medical History: Reports: Hx Hypertension - GESTATIONAL Neurological Medical History: Reports: Hx Migraine Renal/ Medical History: Denies: Hx Peritoneal Dialysis GI Medical History: Reports: Hx Gastroesophageal Reflux Disease Psychiatric Medical History: Reports: Hx Depression Past Surgical History: Reports: Hx Appendectomy - 2009 - Immunizations Immunizations up to date: Yes Hx Diphtheria, Pertussis, Tetanus Vaccination: No History of Influenza Vaccine for 04/2017 - 09/2017 Season: Unknown Review of Systems - Review of Systems Constitutional: No symptoms reported EENT: No symptoms reported Cardiovascular: No symptoms reported Respiratory: No symptoms reported Gastrointestinal: See HPI - no fluid loss Genitourinary: See HPI Female Genitourinary: See HPI, . denies: Vaginal discharge, Vaginal bleeding Musculoskeletal: No symptoms reported Skin: No symptoms reported Hematologic/Lymphatic: No symptoms reported Neurological/Psychological: See HPI, Headaches -: Yes All other systems reviewed and negative Physical Exam - Vital signs Vitals: Temp Pulse Resp BP Pulse Ox 98.6 F 79 16 110/58 L 98 09/21/17 16:52 09/21/17 16:52 09/21/17 16:52 09/21/17 16:52 09/21/17 16:52 - Notes Notes: Physical Exam: General: Alert, appears well. HEENT: Normocephalic. Atraumatic. PERRLA. Extraocular movements intact. Oropharynx clear. Neck: Supple. Respiratory: No respiratory distress. Abdominal: Normal Inspection. No distension. Extremities: Moves all four extremities. Neurological: Normal cognition. AAOx4. Normal speech. Psychological: Normal affect. Normal Mood. Skin: Warm. Dry. Normal color. Course - Vital Signs Vital signs: Temp Pulse Resp BP Pulse Ox 98.6 F 79 16 110/58 L 98 09/21/17 16:52 09/21/17 16:52 09/21/17 16:52 09/21/17 16:52 09/21/17 16:52 Scribe Documentation - Scribe Written by Scribdelisa:: Justina Godinez, Brendon 09/21/17 [id number] acting as scribe for :: Desmond
[2017-09-21 17:39] LABS: APPEARANCE,URINE CLEAR; BILIRUBIN,URINE NEGATIVE (NEGATIVE); COLOR,URINE YELLOW; GLUCOSE, URINE NEGATIVE (NEGATIVE); KETONES,URINE NEGATIVE (NEGATIVE); LEUKOCYTE ESTERASE,URINE NEGATIVE (NEGATIVE); NITRITE,URINE NEGATIVE (NEGATIVE); PROTEIN,URINE 30 mg/dL (NEGATIVE); URINE SPECIFIC GRAVITY 1.025
[2017-09-21 17:49] LABS: ABSOLUTE BASOPHILS # (AUTO) 0.1 10^3/uL (0.0-0.2); ABSOLUTE EOSINOPHILS # (AUTO) 0.4 10^3/uL (0.0-0.6); ABSOLUTE LYMPHOCYTES (AUTO) 3.7 10^3/uL (0.5-4.7); ABSOLUTE MONOCYTES (AUTO) 0.6 10^3/uL (0.1-1.4); ABSOLUTE NEUT (AUTO) 5.2 10^3/uL (1.7-8.2); BASOPHILS % (AUTO) 0.8 % (0-2); EOSINOPHILS % (AUTO) 3.7 % (0-6); HEMATOCRIT 36.1 % (36.0-47.0); HEMOGLOBIN 12.2 g/dL (12.0-15.5); LYMPHOCYTES % (AUTO) 37.2 % (13-45); MEAN CORPUSCULAR HEMOGLOBIN 28.2 pg (27.0-33.4); MEAN CORPUSCULAR HGB CONC 33.8 g/dL (32.0-36.0); MEAN CORPUSCULAR VOLUME 84 fl (80-97); MONOCYTES % (AUTO) 6.3 % (3-13); PLATELET COUNT 338 10^3/uL (150-450); RED BLOOD COUNT 4.32 10^6/uL (3.72-5.28); RED CELL DISTRIBUTION WIDTH 14.3 % (11.5-14.0); TOTAL CELLS COUNTED % (AUTO) 100 %
--- NOTE | 2017-09-21 18:01 | ER Document Report ---
HPI - HPI Pain Level: 4 Notes: Patient is a 22-year-old female who is a approximately 16 weeks with one miscarriage in the past who presetns to the ED for a headache 1 day. Patient states that she has a history of migraines and this is similar to those in the past. Patient states that she does have light sensitivity associated. She is still able to eat and drink without any difficulties. She is urinating normally having normal bowel moods. Patient has taken Tylenol for her symptoms with minimal relief. She denies any vaginal discharge, odor, or bleeding. Patient states that the headache is frontal. The pain does not radiate. Patient states that she also has a history of preeclampsia in the past with a previous . Patient has no other concerns or complaints today. Denies any headache, fever, head injury, neck pain, changes in vision/speech/mentation/ hearing, URI, sore throat, chest pain, palpitations, syncope, cough, shortness of breath, wheeze, dyspnea, abdominal pain, nausea/vomiting/diarrhea, urinary retention, dysuria, hematuria, loss of control of bowel or bladder, numbness/ tingling, saddle anesthesia, muscle paralysis/weakness, or rash. - ROS Systems Reviewed and Negative: Yes All other systems reviewed and negative - REPRODUCTIVE Reproductive: REPORTS: : Past Medical History - General Information source: Patient - Social History Smoking Status: Former Smoker Chew tobacco use (# tins/day): No Frequency of alcohol use: None Drug Abuse: None Family History: Arthritis, DM, Hypertension Patient has suicidal ideation: No Patient has homicidal ideation: No - Past Medical History Cardiac Medical History: Reports: Hx Hypertension - GESTATIONAL Neurological Medical History: Reports: Hx Migraine Renal/ Medical History: Denies: Hx Peritoneal Dialysis GI Medical History: Reports: Hx Gastroesophageal Reflux Disease Psychiatric Medical History: Reports: Hx Depression Past Surgical History: Reports: Hx Appendectomy - 2010 - Immunizations Immunizations up to date: Yes Hx Diphtheria, Pertussis, Tetanus Vaccination: No Vertical Provider Document - CONSTITUTIONAL Agree With Documented VS: Yes Notes: PHYSICAL EXAMINATION: accompanied by female nurse GENERAL: Well-appearing, well-nourished and in no acute distress. A&Ox4. Answers questions appropriately. HEAD: Atraumatic, normocephalic. Non-tender. EYES: Pupils equal round and reactive to light, extraocular movements intact, sclera anicteric, conjunctiva are normal. ENT: EAC clear b/l. TM's intact b/l without erythema, fluid, or perforation. Nares patent and without discharge. oropharynx clear without exudates. No tonsilar hypertrophy or erythema. Moist mucous membranes. No sinus tenderness. NECK: Normal range of motion, supple without lymphadenopathy. No rigidity. No midline tenderness. LUNGS: Breath sounds clear to auscultation bilaterally and equal. No wheezes rales or rhonchi. HEART: Regular rate and rhythm without murmurs, rubs, gallops. ABDOMEN: Soft, nontender, nondistended abdomen. No guarding, no rebound. No masses appreciated. Normal bowel sounds present. No CVA tenderness bilaterally. Musculoskeletal: Ext b/l: FROM to passive/active. Strength 5+/5. No deficits noted. No bony tenderness of extremities. Back: FROM to passive/active. Strength 5+/5. No vertebral point tenderness, stepoffs, or deformities. Extremities: No cyanosis, clubbing, or edema b/l. Peripheral pulses 2+. Capillary refill less than 2 seconds. NEUROLOGICAL: NIH 0. GCS 15. MMSE intact. Cranial nerves grossly intact. Normal speech, normal gait. Normal sensory, motor exams. Reflexes 2+ b/l. JAC' s negative. Pronator drift negative. PSYCH: Normal mood, normal affect. SKIN: Warm, Dry, normal turgor, no rashes or lesions noted. - INFECTION CONTROL TRAVEL OUTSIDE OF THE [place] IN LAST 30 DAYS: No - RESPIRATORY O2 Sat by Pulse Oximetry: 98 Course - Re-evaluation Re-evalutation: 09/21/17 18:49 Patient is an afebrile, well-hydrated, 22-year-old female who presents to the ED with a headache, suspect 1 of her typical migraines based on H&P today. Vitals are acceptable and she has not been hypertensive. PE is otherwise unremarkable for any focal neurological deficits. Patient was given fluids, Reglan, and Benadryl which improved/almost completely resolved her headache. Patient's glucose was noted to be 65 and she was given food and drinks to correct/improved. CBC, CMP, urinalysis were otherwise unremarkable. Patient is tolerating p.o. without any difficulties. Low suspicion for any acute glaucoma, temporal arteritis, meningitis, intracranial hemorrhage, ischemic stroke, preeclampsia, or fracture at this time. Patient is aware that her condition can change from initial presentation and that she needs to monitor symptoms closely for any acute changes. I will send her home with a prescription for Zofran to use as needed. Conservative measures otherwise for symptoms. Recheck with your PCM/AUDIOVISUAL LEAD TECHNICIAN in 3-5 days. Return to the ED with any worsening/concerning symptoms otherwise as reviewed discharge. Patient is in agreement. - Vital Signs Vital signs: Temp Pulse Resp BP Pulse Ox 98.6 F 79 16 110/58 L 98 09/21/17 16:52 09/21/17 16:52 09/21/17 16:52 09/21/17 16:52 09/21/17 16:52 - Laboratory Result Diagrams: 09/21/17 17:30 09/21/17 17:30 Laboratory results interpreted by me: 09/21/17 09/21/17 17:25 17:30 RDW 14.3 H Urine Protein 30 H Urine Urobilinogen 4.0 H Urine Ascorbic Acid 40 H Discharge - Discharge Clinical Impression: Headache Qualifiers: Headache type: unspecified Headache chronicity pattern: acute headache Intractability: not intractable Qualified Code(s): R51 - Headache Condition: Stable Disposition: HOME, SELF-CARE Instructions: Antinausea Medication ([facility]), Headache ([facility]) Additional Instructions: Rest, cool compress Tylenol/zofran as needed Monitor symptoms for any acute changes Moist heat and massage may help F/u with your PCP/OBGYN in 3-5 days for a recheck Return to the ED with any worsening symptoms and/or development of fever, headache, chest pain, palpitations, syncope, shortness of breath, trouble breathing, abdominal pain, n/v/d, blood in stool/urine, loss of control of bowel /bladder, urinary retention, muscle weakness/paralysis, saddle anesthesia, numbness/tingling, vaginal bleeding/cramping/discharge, or other worsening symptoms that are concerning to you. Prescriptions: Ondansetron [Zofran Odt 4 mg Tablet] 1 - 2 tab PO Q4H PRN #15 tab.rapdis PRN Reason: For Nausea/Vomiting Referrals: [facility] [Provider Group] - Follow up as needed
[2017-09-21 18:16] LABS: ALANINE AMINOTRANSFERASE 19 U/L (9-52); ALKALINE PHOSPHATASE 71 U/L (38-126); ANION GAP 9 (5-19); ASPARTATE AMINO TRANSFERASE 19 U/L (14-36); BILIRUBIN,DIRECT 0.3 mg/dL (0.0-0.4); BILIRUBIN,TOTAL 0.3 mg/dL (0.2-1.3); BLOOD UREA NITROGEN 7 mg/dL (7-20); CALCIUM 9.2 mg/dL (8.4-10.2); CARBON DIOXIDE 24 mmol/L (22-30); CHLORIDE 104 mmol/L (98-107); GLUCOSE 65 mg/dL (75-110); POTASSIUM 3.6 mmol/L (3.6-5.0); SODIUM 137.1 mmol/L (137-145); TOTAL PROTEIN 7.1 g/dL (6.3-8.2)
== END 2017-09-21 18:58 | disposition home or self-care (01) ==
LOC: ER 16:39
DX: O26.92 Pregnancy related conditions, unspecified, second trimester (principal); R51 Headache; Z3A.16 16 weeks gestation of pregnancy
CPT/HCPCS: 99284; 96361; 96374; 96375; 36415; 85025; 80053; 81001; J1200; J2765; J7030

== ENCOUNTER → 2017-11-28 | Outpatient (CLI) | payer SELFPAY ==
[~2017-11-28] MED LIST: AZITHROMYCIN 250 MG TABLET ONE; AZITHROMYCIN 250 MG TABLET PO ONE
--- NOTE | 2017-11-28 12:47 | Admission Physical ---
Datetime Report Generated by CPN: 11/28/2017 12:47 CURRENT ADMISSION Chief Complaint: Uterine Contractions; Maternal Discomfort; Sent from OB Office for Evaluation and Treatment - Please Specify Indication for Induction: Not Applicable Admit Impression : , Intrauterine ; Active Labor; Intact Membranes Admit Plan: Admit to Unit; Initiate Labor Protocol ALLERGIES Medication Allergies: Yes Medication Allergies: promethazine/PRUITIS (09/21/2017) Latex: No Latex Allergies OBSTETRICAL HISTORY EDC: 04/22/2017 00:00 : 3 Para: 1 Term: 1 : 0 SAB: 1 IAB: 0 Ectopic: 0 Livin Cesareans: 0 VBACs: 0 Multiple Births: 0 Gestational Diabetes: Unknown Rh Sensitization: No Incompetent Cervix: No GUNNAR: No Infertility: No ART Treatment: No Uterine Anomaly: No IUGR: No Hx Previous C/S: No Macrosomia: No Hx Loss/Stillborn: No PIH: No Hx : No Placenta Previa/Abruption: No Depression/PP Depression: No PTL/PROM: No Post Hemorrhage: No Current Procedures: Ultrasound SEE RECORDS Alcohol: No Marijuana : No Cocaine: No Other Illicit Drugs: No Cigarettes: Former Smoker. 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 Surgery: No Heart Disease: No Hosp/Surgery: Yes Autoimmune Disorder: No Anesthetic Complications: No Kidney Disease: Yes Abnormal Pap Smear: No Neuro/Epilepsy: No Psychiatric Disorders: No Other Medical Diseases: No Hepatitis/Liver Disease: No Significant Family History: No Varicosities/Phlebitis: No Trauma/Violence : No Thyroid Dysfunction: No Medical History Comments: uti 2014 appendix removed 2010 INFECTIOUS HISTORY Gonorrhea: No Genital Herpes: No Chlamydia: No Tuberculosis: No Syphilis: No Hepatitis: No HIV/AIDS Exposure: No Rash or Viral Illness: No HPV: No PHYSICAL EXAM General: Normal HEENT: Normal Neurologic: Normal Thyroid: Normal Heart: Normal Lungs: Normal Breast: Normal Back: Normal Abdomen: Normal Genitourinary Exam: Normal Extremities: Normal DTRs: Normal Pelvic Type: Adequate Vital Signs: Reviewed; Within Normal Limits VAGINAL EXAM Dilatation: 2 Effacement: 25 Station: -4 Contraction Comments: 3-4 MEMBRANES Pooling: Negative Membranes: Intact FETUS A EGA: 27.0 Monitoring: External US FHR- Baseline: 140 Variability: Moderate 6-25bpm Accelerations: 10X10 Decelerations: None FHR Category: Category I Estimated Weight (gm): 1500 Presentation: Breech Admit Comment: Has had one previous deliviery at 37 wks. Pt indicates h/o recurrent UTIs. 2 cm dilated both visually and digital exam. No membranes seen through os. ACS protocol initiated with magnesium for tocolysis/neuroprotection and antibiotics for GBS prevention. If stabilized will transfer to tertiary care facility for potential delivery. INFORMED CONSENT Signature: with User ID: [email or web address]
[2017-11-28 13:40] LABS: T.VAGINALIS (WET MOUNT) NO TRICHOMONAS SEEN; WBCS (WET MOUNT) 3+ WBCS SEEN; YEAST (WET MOUNT) BUDDING YEAST SEEN
[2017-11-28 13:41] LABS: RBCS (WET MOUNT) RARE RBCS SEEN
[2017-11-28 13:54] LABS: APPEARANCE,URINE CLEAR; BILIRUBIN,URINE NEGATIVE (NEGATIVE); COLOR,URINE YELLOW; GLUCOSE, URINE NEGATIVE (NEGATIVE); KETONES,URINE NEGATIVE (NEGATIVE); LEUKOCYTE ESTERASE,URINE NEGATIVE (NEGATIVE); NITRITE,URINE NEGATIVE (NEGATIVE); PROTEIN,URINE NEGATIVE (NEGATIVE); URINE SPECIFIC GRAVITY 1.018
[2017-11-28 14:09] LABS: URINE AMPHETAMINES SCREEN NEGATIVE; URINE BARBITURATES SCREEN NEGATIVE; URINE BENZODIAZEPINES SCREEN NEGATIVE; URINE COCAINE SCREEN NEGATIVE; URINE MARIJUANA (THC) SCREEN NEGATIVE; URINE METHADONE SCREEN NEGATIVE; URINE PHENCYCLIDINE SCREEN NEGATIVE
[2017-11-28 15:02] LABS: CHLAM PCR DETECTED (NOT DETECT); GON PCR NOT DETECTED (NOT DETECT)
--- NOTE | 2017-11-28 16:36 | RADIOLOGY REPORT (SQ) ---
EXAM DESCRIPTION: U/S OB LIMITED COMPLETED DATE/TIME: 11/28/2017 4:24 pm REASON FOR STUDY: cervical length COMPARISON: 08/26/2017 TECHNIQUE: Limited transabdominal grayscale ultrasound for evaluation of specific requested obstetri fifi parameters. LIMITATIONS: None. FINDINGS: CERVICAL LENGTH: 4.4 cm. Closed. MAKENZIE: Adequate cm. FHR: 126 beats per minute. PRESENTATION: Breech OTHER: Gestational age by ultrasound 25 weeks 6 days. IMPRESSION: LIMITED OBSTETRICAL ULTRASOUND WITH MEASURED PARAMETERS DELINEATED ABOVE. Trimester of : Second trimester - 13 weeks 1 day to 27 weeks 6 days. TECHNICAL DOCUMENTATION: JOB ID: [id number] [employer]- All Rights Reserved Reading location - IP/workstation name: [email or web address]
== END ==
LOC: LC 12:45
PROVIDERS: ATTEND Obstetrics & Gynecology
PROC: 4A1HXCZ Monitoring of Products of Conception, Cardiac Rate, External Approach (ICD-10-PCS; principal; 2017-11-28)
DX: O98.812 Other maternal infectious and parasitic diseases complicating pregnancy, second trimester (principal); A74.9 Chlamydial infection, unspecified; Z3A.25 25 weeks gestation of pregnancy
CPT/HCPCS: 76815; 80307; 81001; 87210; 87491; 87591

== ENCOUNTER 2018-01-02 23:13 | Outpatient (CLI) | payer MEDICAID ==
[2018-01-02 23:57] LABS: APPEARANCE,URINE CLEAR; BILIRUBIN,URINE NEGATIVE (NEGATIVE); COLOR,URINE YELLOW; GLUCOSE, URINE NEGATIVE (NEGATIVE); KETONES,URINE NEGATIVE (NEGATIVE); LEUKOCYTE ESTERASE,URINE NEGATIVE (NEGATIVE); NITRITE,URINE NEGATIVE (NEGATIVE); PROTEIN,URINE NEGATIVE (NEGATIVE); URINE SPECIFIC GRAVITY 1.012; UROBILINOGEN,URINE NEGATIVE mg/dL (<2.0)
[2018-01-03 00:22] LABS: URINE AMPHETAMINES SCREEN NEGATIVE; URINE BARBITURATES SCREEN NEGATIVE; URINE BENZODIAZEPINES SCREEN NEGATIVE; URINE COCAINE SCREEN NEGATIVE; URINE MARIJUANA (THC) SCREEN NEGATIVE; URINE METHADONE SCREEN NEGATIVE; URINE PHENCYCLIDINE SCREEN NEGATIVE
[2018-01-03 01:25] LABS: CHLAM PCR NOT DETECTED (NOT DETECT); GON PCR NOT DETECTED (NOT DETECT)
--- NOTE | 2018-01-03 02:36 | RADIOLOGY REPORT (SQ) ---
EXAM DESCRIPTION: US LIMITED COMPLETED DATE/TME: 01/03/2018 00:00 CLINICAL HISTORY: 22 years, Female, contractions. COMPARISON: None. TECHNIQUE: Limited third trimester obstetrical ultrasound. FINDINGS: Cervical length: 1.3 cm and closed. heart rate of 139 bpm. position: Breech Placenta: Posterior. IMPRESSION: 1. The cervical length is shortened measuring 1.3 cm. 2. Single live intrauterine with heart rate of 139 bpm 2010 [employer]- All Rights Reserved
[2018-01-03] MEDS ORDERED: TERBUTALINE SULFATE INJ/PF 1 MG/1 ML SDV SUBCUT ONE (03:16)
[2018-01-03] MEDS ORDERED: BETAMET ACET/BETAMET NA INJ 6 MG/1 ML IM ONE (03:17)
[2018-01-03] MEDS ORDERED: BETAMET ACET/BETAMET NA INJ 6 MG/1 ML ONE (03:22)
[2018-01-03] MEDS ORDERED: TERBUTALINE SULFATE INJ/PF 1 MG/1 ML SDV ONE (03:22)
== END 2018-01-03 05:17 | disposition home or self-care (01) ==
LOC: LC 23:13
PROVIDERS: ATTEND Obstetrics & Gynecology Gynecology
PROC: 4A1HXCZ Monitoring of Products of Conception, Cardiac Rate, External Approach (ICD-10-PCS; principal; 2018-01-02)
DX: O47.03 False labor before 37 completed weeks of gestation, third trimester (principal); Z3A.30 30 weeks gestation of pregnancy
CPT/HCPCS: 59899; 81005; 80307; 87491; 87591; 76815; J0702; J3105

== ENCOUNTER 2018-02-11 21:55 | Outpatient (CLI) | payer MEDICAID ==
[2018-02-11 22:35] LABS: APPEARANCE,URINE SLIGHTLY-CLOUDY; BILIRUBIN,URINE NEGATIVE (NEGATIVE); COLOR,URINE YELLOW; GLUCOSE, URINE NEGATIVE (NEGATIVE); KETONES,URINE NEGATIVE (NEGATIVE); LEUKOCYTE ESTERASE,URINE SMALL (NEGATIVE); NITRITE,URINE NEGATIVE (NEGATIVE); PROTEIN,URINE NEGATIVE (NEGATIVE); URINE SPECIFIC GRAVITY 1.014; UROBILINOGEN,URINE NEGATIVE mg/dL (<2.0)
[2018-02-11 22:52] LABS: URINE AMPHETAMINES SCREEN NEGATIVE; URINE BARBITURATES SCREEN NEGATIVE; URINE BENZODIAZEPINES SCREEN NEGATIVE; URINE COCAINE SCREEN NEGATIVE; URINE METHADONE SCREEN NEGATIVE; URINE PHENCYCLIDINE SCREEN NEGATIVE
[2018-02-11 22:59] LABS: URINE MARIJUANA (THC) SCREEN UNCONFIRMED POSITIVE
== END 2018-02-12 00:16 | disposition home or self-care (01) ==
LOC: LC 21:55
PROVIDERS: ATTEND Obstetrics & Gynecology
PROC: 4A1HXCZ Monitoring of Products of Conception, Cardiac Rate, External Approach (ICD-10-PCS; principal; 2018-02-11)
DX: O36.8130 Decreased fetal movements, third trimester, not applicable or unspecified (principal); O36.8330 Maternal care for abnormalities of the fetal heart rate or rhythm, third trimester, not applicable or unspecified; Z3A.36 36 weeks gestation of pregnancy
CPT/HCPCS: 59025; 81001; 80307; G0480 ×2; 80349

== ENCOUNTER 2018-02-18 14:42 | Outpatient (CLI) | payer MEDICAID ==
--- NOTE | 2018-02-18 16:05 | Non Stress Test Report ---
Non Stress Test Datetime Report Generated by CPN: 02/18/2018 16:04 DEMOGRAPHIC Test Number: 1 EGA NST: 37.3 EGA NST: 36.3 INDICATION Indication for Study: Ordered by Provider Indication for Study: Decreased Movement; Ordered by Provider VITAL SIGNS Temperature - NST: 98.1 Pulse - NST: 94 RESP - NST: 16 NBPSYS NST: 111 NBPDIA NST: 71 URINE RESULTS Urine Protein, NST: Negative Urine Ketones - NST: Negative Urine Glucose - NST: Negative Urine Blood - NST: Negative MONITORING Monitor Explained: Monitor Explained; Test Explained; Patient Verbalized Understanding Monitor Explained: Monitor Explained; Test Explained; Patient Verbalized Understanding Monitor Explained: Monitor Explained; Test Explained; Patient Verbalized Understanding Time on Monitor: 02/18/2018 15:04 Time on Monitor: 02/11/2018 22:10 Time off Monitor: 02/18/2018 15:57 Time off Monitor: 02/12/2018 00:07 NST Duration: 53 NST Duration: 117 NST INTERVENTIONS NST Interventions: PO Hydration NST Interventions: PO Hydration NST Interventions: PO Hydration; Reposition Patient Physician Notified NST: Oscar Physician Notified NST: Dr. Moore BABY A: [id number] BABY A Movement : Present Movement : Present Movement : Decreased Contraction Frequency : irregualr Contraction Frequency : none FHR Baseline : 130 FHR Baseline : 140 Accelerations : 15X15 Accelerations : Prolonged Accelerations : 15X15 Decelerations : None Decelerations : None Variability : Moderate 6-25bpm Variability : Moderate 6-25bpm NST Review: Meets Criteria for Reactive NST NST Review: Meets Criteria for Reactive NST NST Review and Verified By : RIKI VanegasT Review and Verified By : MARY CARMEN Castro NST Results: Reactive NST Results: Reactive NST REPORT Report Trigger: Send Report
== END 2018-02-18 15:57 | disposition home or self-care (01) ==
LOC: LC 14:42
PROVIDERS: ATTEND Obstetrics & Gynecology
PROC: 4A1HXCZ Monitoring of Products of Conception, Cardiac Rate, External Approach (ICD-10-PCS; principal; 2018-02-18)
DX: O36.8130 Decreased fetal movements, third trimester, not applicable or unspecified (principal); Z3A.37 37 weeks gestation of pregnancy
CPT/HCPCS: 59025

== ENCOUNTER 2018-02-20 06:10 | Inpatient (IN) | payer MEDICAID ==
[2018-02-20] MEDS ORDERED: OXYTOCIN/NORMAL SALINE 20 UNIT/1,000 ML RTUINJ IV PRN ×2 (06:19→14:58)
[2018-02-20] MEDS ORDERED: PENICILLIN G POTASSIUM 5,000,000 UNIT in DEXTROSE 5%-WATER 100 ML IV ONE (06:35)
[2018-02-20] MEDS ORDERED: RINGERS SOLUTION,LACTATED 300 ML IV ONE (06:40)
[2018-02-20 06:52] LABS: APPEARANCE,URINE CLEAR; BILIRUBIN,URINE NEGATIVE (NEGATIVE); COLOR,URINE YELLOW; GLUCOSE, URINE NEGATIVE (NEGATIVE); KETONES,URINE NEGATIVE (NEGATIVE); LEUKOCYTE ESTERASE,URINE MODERATE (NEGATIVE); NITRITE,URINE NEGATIVE (NEGATIVE); PROTEIN,URINE NEGATIVE (NEGATIVE); URINE SPECIFIC GRAVITY 1.009
[2018-02-20 07:13] LABS: URINE BARBITURATES SCREEN NEGATIVE; URINE BENZODIAZEPINES SCREEN NEGATIVE; URINE COCAINE SCREEN NEGATIVE; URINE MARIJUANA (THC) SCREEN NEGATIVE; URINE METHADONE SCREEN NEGATIVE
[2018-02-20 07:37] LABS: URINE AMPHETAMINES SCREEN NEGATIVE; URINE PHENCYCLIDINE SCREEN NEGATIVE
[2018-02-20 07:51] LABS: ABSOLUTE BASOPHILS # (AUTO) 0.1 10^3/uL (0.0-0.2); ABSOLUTE EOSINOPHILS # (AUTO) 0.3 10^3/uL (0.0-0.6); ABSOLUTE LYMPHOCYTES (AUTO) 4.8 10^3/uL (0.5-4.7); ABSOLUTE MONOCYTES (AUTO) 0.7 10^3/uL (0.1-1.4); ABSOLUTE NEUT (AUTO) 7.1 10^3/uL (1.7-8.2); BASOPHILS % (AUTO) 0.7 % (0-2); EOSINOPHILS % (AUTO) 2.6 % (0-6); HEMATOCRIT 30.3 % (36.0-47.0); HEMOGLOBIN 9.9 g/dL (12.0-15.5); LYMPHOCYTES % (AUTO) 36.7 % (13-45); MEAN CORPUSCULAR HEMOGLOBIN 25.1 pg (27.0-33.4); MEAN CORPUSCULAR HGB CONC 32.7 g/dL (32.0-36.0); MEAN CORPUSCULAR VOLUME 77 fl (80-97); MONOCYTES % (AUTO) 5.4 % (3-13); PLATELET COUNT 291 10^3/uL (150-450); RED BLOOD COUNT 3.94 10^6/uL (3.72-5.28); RED CELL DISTRIBUTION WIDTH 15.8 % (11.5-14.0); SEGMENTED NEUTROPHILS % (AUTO) 54.6 % (42-78); TOTAL CELLS COUNTED % (AUTO) 100 %
[2018-02-20] MEDS: RINGERS SOLUTION,LACTATED 1,000 ML IV PRN ×2 (07:56→13:07)
[2018-02-20] MEDS ORDERED: OXYTOCIN/NORMAL SALINE 20 UNIT/1,000 ML RTUINJ ONE (08:12)
[2018-02-20] MEDS ORDERED: MISOPROSTOL 0.2 MG TABLET ONE (08:12)
[2018-02-20] MEDS ORDERED: LIDOCAINE 1% INJ-PF (10 MG/ML) 30 ML SDV ONE (08:12)
--- NOTE | 2018-02-20 09:29 | L&D Progress Notes ---
PROGRESS NOTES Datetime Report Generated by CPN: 02/20/2018 09:29 PROGRESS NOTE Impression: Reassuring Heart Rate Plan: Continue Present Management; Induction Informed Consent Obtained: Vaginal Delivery Vital Signs : Reviewed; Within Normal Limits Comment: Admitted for IOL for IUGR @ 37.5, homeless, lives in a car, O +, Cat 1 strip, irregular uc's Family at , will start Pitocin, anticipate Needs materials planner, Dr. Hoffman on unit and aware of status FETUS A FHR - Baseline: 130 Monitoring: External US Variability: Moderate 6-25bpm Accelerations: 15X15 Decelerations: None : 37.5 SIGNATURE SIGNATURE: [id number];[id number] SIGNATURE: [id number] Assignment: Claudia Romero MD Signature: with User ID: Trish : with User ID: Trish
--- NOTE | 2018-02-20 12:31 | L&D Progress Notes ---
PROGRESS NOTES Datetime Report Generated by CPN: 02/20/2018 12:30 PROGRESS NOTE Procedures: Artificial ROM; Sterile Vag Exam Plan: Continue Present Management; Induction Informed Consent Obtained: Vaginal Delivery Vital Signs : Reviewed; Within Normal Limits Comment: VE 3-4/80/vtx/0, AROM = clear fluid, uc's feeling stronger, breathing with uc's FETUS A FHR - Baseline: 125 Variability: Moderate 6-25bpm Accelerations: 15X15 FETUS C SIGNATURE: [id number];[id number] Assignment: Claudia Romero MD Signature: with User ID: Trish : with User ID: Trish
[2018-02-20] MEDS ORDERED: NALBUPHINE HCL INJ 10 MG/1 ML AMPULE ONE (13:01)
[2018-02-20] MEDS ORDERED: NALBUPHINE HCL INJ 10 MG/1 ML AMPULE IV ONE (14:30)
--- NOTE | 2018-02-20 14:30 | L&D Progress Notes ---
PROGRESS NOTES Datetime Report Generated by CPN: 02/20/2018 14:30 PROGRESS NOTE Comment: uc's q 2-3 x 50-60 sec, Cat 1 strip, discomfort with contractions, deciding about epidural MEMBRANES Membranes: Ruptured Amniotic Fluid Color: Clear FETUS A Monitoring: External US FETUS C SIGNATURE: [id number];[id number] Assignment: Claudia Romero MD Signature: with User ID: Trish : with User ID: Trish
[2018-02-20] MEDS ORDERED: BENZOCAINE/MENTHOL AEROSOL SPRAY 56 ML TOP PRN (14:58)
[2018-02-20] MEDS ORDERED: MAGNESIUM HYDROXIDE SUSP 30 ML UDCUP PO PRN (14:58)
[2018-02-20] MEDS ORDERED: ACETAMINOPHEN WITH CODEINE #3 TABLET PO PRN ×2 (14:58)
[2018-02-20] MEDS ORDERED: DIPH/PERTUSS(ACELL)/TETANUS VAC/PF 0.5 ML SYR (>=10YO) IM PRN (14:58)
[2018-02-20] MEDS ORDERED: PROMETHAZINE HCL INJ 25 MG/1 ML VIAL IV PRN (14:58)
[2018-02-20] MEDS ORDERED: DIPHENHYDRAMINE HCL 25 MG CAPSULE PO PRN (14:58)
[2018-02-20] MEDS ORDERED: PSEUDOEPHEDRINE HCL 30 MG TABLET PO PRN (14:58)
[2018-02-20] MEDS ORDERED: MEASLES,MUMPS&RUBELLA VACC/PF 0.5 ML VIAL SUBCUT PRN (14:58)
[2018-02-20] MEDS ORDERED: PROMETHAZINE HCL 25 MG SUPP.RECT PR PRN (14:58)
[2018-02-20] MEDS ORDERED: ACETAMINOPHEN 650 MG SUPP.RECT PR PRN (14:58)
[2018-02-20] MEDS ORDERED: NA PHOS,M-B/NA PHOS,DI-BA (ADULT) 133 ML ENEMA PR PRN (14:58)
[2018-02-20] MEDS ORDERED: GLYCERIN/WITCH HAZEL LEAF 1 EACH MED..PAD TP PRN (14:58)
[2018-02-20] MEDS ORDERED: PROMETHAZINE HCL 25 MG TABLET PO PRN (14:58)
[2018-02-20] MEDS ORDERED: DIBUCAINE 1% OINTMENT 28 GM TP PRN (14:58)
--- NOTE | 2018-02-20 17:33 | Delivery Summary ---
Del Sum A-C Datetime Report Generated by CPN: 02/20/2018 17:33 DELIVERY PERSONNEL DELIVERY PERSONNEL: [id number] Delivery Doctor:: Addie Dumont CNM Labor and Delivery Nurse:: Delaney Loja RN Labor and Delivery Nurse:: Ana Villar RN Skin Care Instructor/EXPLOSIVE OPERATOR FUSE: Fina Schultz CNA II Skin Care Instructor/EXPLOSIVE OPERATOR FUSE: Jessica Trevizo Additional Personnel: : Didier Haro RN MATERNAL INFORMATION Delivery Anesthesia: None Medications After Delivery: Pitocin Bolus-Please Comment; Pitocin Drip 20 Units/1000ml NSS Maternal Complications: None Provider Comments: Progressed quickly and started pushing, viable male from OA to NASEEM over intact perineum, placed on mothers abd, cord clamped and cut by FOB after 2 minutes, spont delivery of grossly nl intact placenta, 3 VC, cord blood to lab, no lacerations, FFFM baby and mom remain in recovery in stable condition LABOR SUMMARY EDC: 03/08/2018 00:00 No. Babies in Womb: 1 Attempted: No Labor Anesthesia: IV Sedation LABOR INFORMATION Reason for Induction: Intrauterine Growth Retardation Onset of Labor: 02/20/2018 09:00 Complete Dilatation: 02/20/2018 14:40 Oxytocin: Induction Group B Beta Strep: NEGATIVE Antibiotics # of Doses: 0 Steroids Given: None Reason Steroids Not Administered: Not Applicable MEMBRANES Membranes Rupture Method: Artificial Rupture of Membranes: 02/20/2018 12:26 Length of Rupture (hr): 2.32 Amniotic Fluid Color: Clear Amniotic Fluid Amount: Small STAGES OF LABOR Stage 1 hr: 5 Stage 1 min: 40 Stage 2 hr: 0 Stage 2 min: 5 Stage 3 hr: 0 Stage 3 min: 4 Total Time in Labor hr: 5 Total Time in Labor min: 49 VAGINAL DELIVERY Episiotomy: None Laceration #1: None Laceration Extension #1: N/A Laceration Repair: Not Applicable Sponge Count Correct: N/A Sharps Count Correct: N/A BABY A INFORMATION Delivery Date/Time: 02/20/2018 14:45 Method of Delivery: Vaginal Born in Route : No : N/A Forceps: N/A Vacuum Extraction: N/A Shoulder Dystocia : No PRESENTATION/POSITION BABY A Presentation: Cephalic Cephalic Presentation: Vertex Vertex Position: Left Occipital Anterior Breech Presentation: N/A PLACENTA INFORMATION BABY A Placenta Delivery Time : 02/20/2018 14:49 Placenta Method of Delivery: Spontaneous Placenta Status: Delivered SCORES BABY A Heart Rate 1 min: >100 bpm Resp Effort 1 min: Good Cry Reflex Irritability 1 min: Cough or Sneeze or Pulls Away Muscle Tone 1 min: Active Motion Color 1 min: Body [place], Extremities Blue Resuscitation Effort 1 min: Tactile Stimulation SCORE 1 MIN: 9 Heart Rate 5 min: >100 bpm Resp Effort 5 min: Good Cry Reflex Irritability 5 min: Cough or Sneeze or Pulls Away Muscle Tone 5 min: Active Motion Color 5 min: Body [place], Extremities Blue Resuscitation Effort 5 min: Tactile Stimulation SCORE 5 MIN: 9 INFANT INFORMATION BABY A Gestational Age at Delivery: 37.5 Gestational Status: Early Term- 37- 38.6 Weeks Infant Outcome : Liveborn Condition : Stable Sex: Female IDENTIFICATION BABY A Infant Verification Date/Time: 02/20/2018 15:35 ID Band Number: [id number] Mother's Name Verified: Yes RN Verifying Infant: SLY LOJA RN Additional Verifying Personnel: Rex VILLAR, RN WEIGHT/LENGTH BABY A Infant Birthweight (gm): 2620 Infant Weight (lb): 5 Weight (oz): 12 Infant Length (in): 19.00 Length (cm): 48.26 CORD INFORMATION BABY A No. Cord Vessels: 3 Nuchal Cord : N/A Cord Blood Taken: Yes-For Eval (Mom's Blood Type - or O+) Suction: None ASSESSMENT BABY A Complications: None Infant Complications- Other: nubain 10 mg @ 1307 Physical Findings at Delivery: Within Normal Limits Infant Respirations: Appears Normal Skin to Skin: Yes Skin to Skin Time (min): 60 Web Merchant/ALS Called : No Infant Care By: Sun HARO RN/ Rex VILLAR RN Transferred To: Remains with Mother BABY B INFORMATION : N/A
[2018-02-20] MEDS: FERROUS SULFATE 325 MG TABLET PO SCH (19:51)
[2018-02-20] MEDS: DOCUSATE SODIUM 100 MG CAPSULE PO SCH (19:51)
[2018-02-20] MEDS: IBUPROFEN 800 MG TABLET PO SCH (21:50)
[2018-02-20] MEDS ORDERED: FAMOTIDINE 20 MG TABLET PO SCH (22:00)
[2018-02-21] MEDS: IBUPROFEN 800 MG TABLET PO SCH ×3 (05:08→21:52)
[2018-02-21 07:16] LABS: HEMATOCRIT 26.2 % (36.0-47.0); HEMOGLOBIN 8.6 g/dL (12.0-15.5); MEAN CORPUSCULAR HEMOGLOBIN 25.2 pg (27.0-33.4); MEAN CORPUSCULAR VOLUME 76 fl (80-97); PLATELET COUNT 243 10^3/uL (150-450); RED BLOOD COUNT 3.43 10^6/uL (3.72-5.28); RED CELL DISTRIBUTION WIDTH 16.1 % (11.5-14.0); WHITE BLOOD COUNT 16.8 10^3/uL (4.0-10.5)
[2018-02-21] MEDS: PENICILLIN G POTASSIUM 2,500,000 UNIT in DEXTROSE 5%-WATER 50 ML IV SCH ×2 (07:35→07:36)
[2018-02-21] MEDS: PRENATAL VITAMIN W DHA CAPSULE PO SCH (09:37)
[2018-02-21] MEDS: DOCUSATE SODIUM 100 MG CAPSULE PO SCH ×2 (09:37→17:06)
[2018-02-21] MEDS: FERROUS SULFATE 325 MG TABLET PO SCH ×2 (09:37→17:06)
[2018-02-21] MEDS ORDERED: SENNOSIDES/DOCUSATE 8.6-50 MG 1 EACH TABLET PO SCH (10:00)
--- NOTE | 2018-02-21 12:23 | PDOC PROGRESS REPORT ---
Subjective-OB Progress Note for:: 02/21/18 Subjective: Day #1 PP, doing well, , no complaints Physical Exam (OB) Vital Signs: Temp Pulse Resp BP Pulse Ox 98.3 F 92 18 107/65 97 02/21/18 07:50 02/21/18 07:50 02/21/18 07:50 02/21/18 07:50 02/21/18 07:50 Intake & Output 02/20/18 02/21/18 02/22/18 06:59 06:59 06:59 Intake Total 648 1000 Balance 648 1000 Weight 71.8 kg - General General Appearance: Appears well, Alert In distress: None - PIH/Pre-Eclampsia DTR's: 1 + Clonus: Negative Headache: Absent Epigastric Pain: No Visual Changes: No - Dressing Removed: No - Bilateral Tubal Ligation Dressing Removed: No - Lochia Lochia Amount: Scant < 10 ml Lochia Color: Rubra/Red - Abdomen Description: Tender, Soft Hernia Present: No Fundal Description: Firm, Midline Fundal Height: u/u - u/2 - Respiratory Respiratory Status: No respiratory distress - Extremities Upper extremity: Normal inspection Lower extremities: Normal inspection - Neurological Cognition: Normal Orientation: AAOx4 - Psychological Associated symptoms: Normal affect, Normal mood Objective-Diagnostic Laboratory: 02/21/18 06:50 02/21/18 06:50 WBC 16.8 H RBC 3.43 L Hgb 8.6 L Hct 26.2 L MCV 76 L MCH 25.2 L MCHC 33.0 RDW 16.1 H Plt Count 243 Assessment and Plan(PN) - Assessment and Plan (1) Delivery normal Is this a current diagnosis for this admission?: Yes (2) Homeless family Is this a current diagnosis for this admission?: Yes (3) IUGR (intrauterine growth retardation), delivered, current hospitalization Is this a current diagnosis for this admission?: Yes - Time Spent with Patient Time with patient: Less than 15 minutes - Disposition Anticipated Discharge: Home Within: within 24 hours
[2018-02-22] MEDS: IBUPROFEN 800 MG TABLET PO SCH (05:10)
[2018-02-22] MEDS: PRENATAL VITAMIN W DHA CAPSULE PO SCH (10:06)
[2018-02-22] MEDS: DOCUSATE SODIUM 100 MG CAPSULE PO SCH (10:06)
[2018-02-22] MEDS: FERROUS SULFATE 325 MG TABLET PO SCH (10:06)
--- NOTE | 2018-02-22 10:32 | PDOC PROGRESS REPORT ---
Subjective-OB Progress Note for:: 02/22/18 Subjective: PP Day #2, doing well, no complaints, , facilities planner in place d/t pt being homeless Physical Exam (OB) Vital Signs: Temp Pulse Resp BP Pulse Ox 97.8 F 67 18 102/46 L 98 02/22/18 07:08 02/22/18 07:08 02/22/18 07:08 02/22/18 07:08 02/22/18 07:08 Intake & Output 02/21/18 02/22/18 02/23/18 06:59 06:59 06:59 Intake Total 648 1000 Balance 648 1000 - General General Appearance: Appears well In distress: None - PIH/Pre-Eclampsia DTR's: 1 + Clonus: Negative Headache: Absent Epigastric Pain: No Visual Changes: No - Dressing Removed: No - Bilateral Tubal Ligation Dressing Removed: No - Lochia Lochia Amount: Scant < 10 ml Lochia Color: Rubra/Red - Abdomen Description: Tender, Soft, Flat Hernia Present: No Fundal Description: Firm, Midline Fundal Height: u/u - u/2 - Respiratory Respiratory Status: No respiratory distress - Extremities Upper extremity: Normal inspection Lower extremities: Normal inspection - Neurological Cognition: Normal Orientation: AAOx4 - Psychological Associated symptoms: Normal affect, Normal mood Objective-Diagnostic Laboratory: 02/21/18 06:50 Assessment and Plan(PN) - Assessment and Plan (1) Delivery normal Is this a current diagnosis for this admission?: Yes (2) Homeless family Is this a current diagnosis for this admission?: Yes (3) IUGR (intrauterine growth retardation), delivered, current hospitalization Is this a current diagnosis for this admission?: Yes (4) Anemia, Is this a current diagnosis for this admission?: Yes - Time Spent with Patient Time with patient: Less than 15 minutes - after pt is seen by DSS - Disposition Anticipated Discharge: Home
--- NOTE | 2018-02-22 10:36 | PDOC DISCHARGE SUMMARY ---
Final Diagnosis Discharge Date: 02/22/18 - Final Diagnosis (1) Delivery normal Is this a current diagnosis for this admission?: Yes (2) Homeless family Is this a current diagnosis for this admission?: Yes (3) IUGR (intrauterine growth retardation), delivered, current hospitalization Is this a current diagnosis for this admission?: Yes (4) Anemia, Is this a current diagnosis for this admission?: Yes Discharge Data - Discharge Medication Prescriptions: Ferrous Sulfate [Feosol 325 mg Tablet] 325 mg PO DAILY #30 tablet Ibuprofen [Motrin 800 mg Tablet] 800 mg PO Q8 #30 tablet Home Medications: Vitamin [-U Multiple Vitamin Capsule] 1 cap PO DAILY #0 capsule 10/08/16 Ferrous Sulfate [Feosol 325 mg Tablet] 325 mg PO DAILY #30 tablet 02/22/18 Ibuprofen [Motrin 800 mg Tablet] 800 mg PO Q8 #30 tablet 02/22/18 Reason(s) for Admission: Induction of Labor Procedures: NST, Ultrasound Intrapartum Procedure(s): Spontaneous Vaginal Delivery - Diagnosis Test Laboratory: Temp Pulse Resp BP Pulse Ox 97.8 F 67 18 102/46 L 98 02/22/18 07:08 02/22/18 07:08 02/22/18 07:08 02/22/18 07:08 02/22/18 07:08 02/20/18 02/20/18 02/21/18 06:17 07:03 06:50 RBC 3.94 3.43 L Hgb 9.9 L 8.6 L Hct 30.3 L 26.2 L Urine Opiates Screen NEGATIVE - Discharge information/Instructions Discharge Activity: Activity As Tolerated Discharge Diet: As Tolerated, Regular Disposition: HOME, SELF-CARE Follow up with: [facility] in: 3, Weeks
[2018-02-22 11:39] VITALS: BP 114/60
== END 2018-02-22 13:30 | disposition home or self-care (01) | DRG 775 ==
LOC: LR 06:10 → 2S 17:17
PROVIDERS: ADMIT Obstetrics & Gynecology; ATTEND Obstetrics & Gynecology
PROC: 10E0XZZ Delivery of Products of Conception, External Approach (ICD-10-PCS; principal; 2018-02-20)
PROC: 10907ZC Drainage of Amniotic Fluid, Therapeutic from Products of Conception, Via Natural or Artificial Opening (ICD-10-PCS; 2018-02-20)
PROC: 3E033VJ Introduction of Other Hormone into Peripheral Vein, Percutaneous Approach (ICD-10-PCS; 2018-02-20)
PROC: 4A1HXCZ Monitoring of Products of Conception, Cardiac Rate, External Approach (ICD-10-PCS; 2018-02-20)
DX: O36.5930 Maternal care for other known or suspected poor fetal growth, third trimester, not applicable or unspecified (principal); O90.81 Anemia of the puerperium; D64.9 Anemia, unspecified; Z59.0 Homelessness; Z3A.37 37 weeks gestation of pregnancy; Z37.0 Single live birth
CPT/HCPCS: 36415; 80307; 81005; 85025; 85027; 86592; 86850; 86900; 86901; J2300; J2590; J3490

== ENCOUNTER 2019-01-20 15:52 | Emergency (ER) | payer SELFPAY ==
[2019-01-20] MEDS ORDERED: IBUPROFEN 800 MG TABLET PO ONE (17:35)
--- NOTE | 2019-01-20 17:36 | ER Document Report ---
ED General - General Chief Complaint: Vaginal Bleeding Stated Complaint: VAGINAL BLEEDING Time Seen by Provider: 01/20/19 17:24 Primary Care Provider: FELICE FELTON MD [Primary Care Provider] - Follow up in 1 week Mode of Arrival: Ambulatory Information source: Patient Notes: Patient presents emergency department with complaints of vaginal bleeding. She reports last menstrual period was November 16. She reports last month that she received a depo injection. She reports she started having vaginal bleeding with some clots and lower abdominal cramping. She is used one pad today. Denies vomiting reports some lightheaded has this and nausea. Denies pain with void. Reports she took 200 mg of ibuprofen and helped ease the cramps a little bit . TRAVEL OUTSIDE OF THE [place] IN LAST 30 DAYS: No - HPI Onset: This morning Onset/Duration: Sudden Quality of pain: Cramping Pain Level: 4 Associated symptoms: Nausea Exacerbated by: Denies Relieved by: Denies Similar symptoms previously: No Recently seen / treated by doctor: No - Related Data Allergies/Adverse Reactions: promethazine [From Phenergan] Adverse Reaction (Verified 01/20/19 15:53) PRUITIS Past Medical History - General Information source: Patient Last Menstrual Period: 11/16/18 - Social History Smoking Status: Current Every Day Smoker Cigarette use (# per day): Yes Frequency of alcohol use: Occasional Drug Abuse: None Lives with: Family Family History: Arthritis, DM, Hypertension Patient has suicidal ideation: No Patient has homicidal ideation: No - Past Medical History Cardiac Medical History: Reports: Hx Hypertension - GESTATIONAL Neurological Medical History: Reports: Hx Migraine Renal/ Medical History: Denies: Hx Peritoneal Dialysis GI Medical History: Reports: Hx Gastroesophageal Reflux Disease Psychiatric Medical History: Reports: Hx Depression Past Surgical History: Reports: Hx Appendectomy - 2010, Hx Kidney (Renal Surgery) - 1 removed. unsure which one - Immunizations Immunizations up to date: Yes Hx Diphtheria, Pertussis, Tetanus Vaccination: No Review of Systems - Review of Systems Notes: Review HPI for review of systems., All other systems negative Physical Exam - Vital signs Vitals: Temp Pulse Resp BP Pulse Ox 98.3 F 79 14 136/68 H 98 01/20/19 15:56 01/20/19 15:56 01/20/19 15:56 01/20/19 15:56 01/20/19 15:56 - Notes Notes: PHYSICAL EXAMINATION: GENERAL: Well-appearing and in no acute distress HEAD: Atraumatic, normocephalic. EYES: Pupils equal round , extraocular movements intact, sclera anicteric, conjunctiva are normal. ENT: nares patent, . Moist mucous membranes. NECK: Normal range of motion, supple without lymphadenopathy LUNGS: CTAB and equal. No wheezes rales or rhonchi. HEART: Regular rate and rhythm without murmurs ABDOMEN: Soft, no tenderness. No guarding, no rebound EXTREMITIES: Normal range of motion, NEUROLOGICAL: Cranial nerves grossly intact. PSYCH: Normal mood, normal affect. SKIN: Warm, Dry, normal turgor, no rashes or lesions noted Course - Re-evaluation Re-evalutation: 01/20/19 19:00 Labs unremarkable urine shows some leukocytes. We will treat with Macrobid. Patient instructed on all results. Instructed to follow-up with her [facility]ER for continued bleeding. Verbalized understanding to all instructions Dictation of this chart was performed using voice recognition software; therefore, there may be some unintended grammatical errors. 01/20/19 17:50 MCV 83 fl (80-97) 01/20/19 17:50 MCH 27.3 pg (27.0-33.4) 01/20/19 17:50 MCHC 32.8 g/dL (32.0-36.0) 01/20/19 17:50 RDW 13.8 % (11.5-14.0) 01/20/19 17:50 Seg Neutrophils % 56.9 % (42-78) 01/20/19 17:50 Lymphocytes % 34.6 % (13-45) 01/20/19 17:50 Monocytes % 5.9 % (3-13) 01/20/19 17:50 Eosinophils % 1.8 % (0-6) 01/20/19 17:50 Basophils % 0.8 % (0-2) 01/20/19 17:50 Absolute Neutrophils 5.2 10^3/uL (1.7-8.2) 01/20/19 17:50 Absolute Lymphocytes 3.2 10^3/uL (0.5-4.7) 01/20/19 17:50 Absolute Monocytes 0.5 10^3/uL (0.1-1.4) 01/20/19 17:50 Absolute Eosinophils 0.2 10^3/uL (0.0-0.6) 01/20/19 17:50 Absolute Basophils 0.1 10^3/uL (0.0-0.2) 01/20/19 17:50 Urine Color YELLOW 01/20/19 17:00 Urine Appearance CLOUDY 01/20/19 17:00 Urine pH 6.0 (5.0-9.0) 01/20/19 17:00 Ur Specific [place] 1.004 01/20/19 17:00 Urine Protein 30 mg/dL (NEGATIVE) H 01/20/19 17:00 Urine Glucose (UA) NEGATIVE mg/dL (NEGATIVE) 01/20/19 17:00 Urine Ketones NEGATIVE mg/dL (NEGATIVE) 01/20/19 17:00 Urine Blood LARGE (NEGATIVE) H 01/20/19 17:00 Urine Nitrite NEGATIVE (NEGATIVE) 01/20/19 17:00 Ur Leukocyte Esterase MODERATE (NEGATIVE) H 01/20/19 17:00 Urine WBC (Auto) 23 /HPF 01/20/19 17:00 Urine RBC (Auto) 10 /HPF 01/20/19 17:00 - Vital Signs Vital signs: Temp Pulse Resp BP Pulse Ox 98.3 F 79 14 136/68 H 98 01/20/19 15:56 01/20/19 15:56 01/20/19 15:56 01/20/19 15:56 01/20/19 15:56 - Laboratory Result Diagrams: 01/20/19 17:50 Laboratory results interpreted by me: 01/20/19 17:00 Urine Protein 30 H Urine Blood LARGE H Ur Leukocyte Esterase MODERATE H Discharge - Discharge Clinical Impression: Vaginal bleeding UTI (urinary tract infection) Qualifiers: Urinary tract infection type: site unspecified Hematuria presence: with hematuria Qualified Code(s): N39.0 - Urinary tract infection, site not specified Condition: Stable Disposition: HOME, SELF-CARE Instructions: Use of [id number]-[id number]-[id number] Ibuprofen ([facility]), Nitrofurantoin ([facility]), [facility], [facility], Urinary Tract Infection ([facility]), Vaginal Bleeding ([facility]) Additional Instructions: *You have been evaluated for vaginal bleeding, UTI *Take medication as prescribed *Follow up with your [facility] or the health department for recheck within one week *Avoid sexual intercourse until follow up *Return to ED for worsening condition, changes, needs Prescriptions: Nitrofurantoin/Nitrofuran Mac [Macrobid 100 mg Capsule] 100 mg PO BID #20 capsul e Forms: Return to Work Referrals: FELICE FELTON MD [Primary Care Provider] - Follow up in 1 week
[2019-01-20] MEDS ORDERED: IBUPROFEN 600 MG TABLET ONE (17:51)
[2019-01-20] MEDS ORDERED: IBUPROFEN 600 MG TABLET PO ONE (17:53)
[2019-01-20 17:56] LABS: AMORPHOUS SEDIMENT,URINE TRACE /HPF; APPEARANCE,URINE CLOUDY; BILIRUBIN,URINE NEGATIVE (NEGATIVE); GLUCOSE, URINE NEGATIVE (NEGATIVE); KETONES,URINE NEGATIVE (NEGATIVE); LEUKOCYTE ESTERASE,URINE MODERATE (NEGATIVE); NITRITE,URINE NEGATIVE (NEGATIVE); PROTEIN,URINE 30 mg/dL (NEGATIVE); URINE SPECIFIC GRAVITY 1.004; UROBILINOGEN,URINE NEGATIVE mg/dL (<2.0)
[2019-01-20 18:00] LABS: COLOR,URINE YELLOW
[2019-01-20 18:00] LABS: ABSOLUTE BASOPHILS # (AUTO) 0.1 10^3/uL (0.0-0.2); ABSOLUTE EOSINOPHILS # (AUTO) 0.2 10^3/uL (0.0-0.6); ABSOLUTE LYMPHOCYTES (AUTO) 3.2 10^3/uL (0.5-4.7); ABSOLUTE MONOCYTES (AUTO) 0.5 10^3/uL (0.1-1.4); ABSOLUTE NEUT (AUTO) 5.2 10^3/uL (1.7-8.2); BASOPHILS % (AUTO) 0.8 % (0-2); EOSINOPHILS % (AUTO) 1.8 % (0-6); HEMATOCRIT 39.4 % (36.0-47.0); HEMOGLOBIN 12.9 g/dL (12.0-15.5); LYMPHOCYTES % (AUTO) 34.6 % (13-45); MEAN CORPUSCULAR HEMOGLOBIN 27.3 pg (27.0-33.4); MEAN CORPUSCULAR HGB CONC 32.8 g/dL (32.0-36.0); MEAN CORPUSCULAR VOLUME 83 fl (80-97); MONOCYTES % (AUTO) 5.9 % (3-13); PLATELET COUNT 343 10^3/uL (150-450); RED BLOOD COUNT 4.73 10^6/uL (3.72-5.28); RED CELL DISTRIBUTION WIDTH 13.8 % (11.5-14.0); SEGMENTED NEUTROPHILS % (AUTO) 56.9 % (42-78); TOTAL CELLS COUNTED % (AUTO) 100 %; WHITE BLOOD COUNT 9.2 10^3/uL (4.0-10.5)
[2019-01-20 19:18] VITALS: BP 118/76
== END 2019-01-20 19:18 | disposition home or self-care (01) ==
LOC: ER 15:52
DX: N93.9 Abnormal uterine and vaginal bleeding, unspecified (principal); N39.0 Urinary tract infection, site not specified; R31.9 Hematuria, unspecified; R10.30 Lower abdominal pain, unspecified; R42 Dizziness and giddiness; R11.0 Nausea; F17.210 Nicotine dependence, cigarettes, uncomplicated; Z90.5 Acquired absence of kidney; Z90.49 Acquired absence of other specified parts of digestive tract
CPT/HCPCS: 36415; 81001; 84702; 85025; 99284

== ENCOUNTER 2020-04-08 13:15 | Emergency (ER) | payer MEDICAID ==
--- NOTE | 2020-04-08 14:03 | ER Document Report ---
ED Medical Screen (RME) - General Chief Complaint: Nausea/Vomiting Stated Complaint: NAUSEA/VOMITING Time Seen by Provider: 04/08/20 13:46 Primary Care Provider: FELICE FELTON MD [Primary Care Provider] - Follow up as needed Mode of Arrival: Ambulatory Information source: Patient Notes: 24-year-old female presented to ED for complaint of nausea and vomiting lighthea dedness dizziness body aches no fever. She states that she has not been able to eat anything for couple days when she does he did go is vomited. She states her last menstrual period was a couple days ago and this is the third 1 this month. She states she does smoke 3 cigarettes a day drinks a glass of wine a day and does not use any illicit drugs. She states she really needs a COVID test this time. She states she was seen here recently and her grandmother just on the . She states she started getting sick on the . I have greeted and performed a rapid initial assessment of this patient. A comprehensive ED assessment and evaluation of the patient, analysis of test results and completion of medical decision making process will be conducted by an additional ED providers. TRAVEL OUTSIDE OF THE [place] IN LAST 30 DAYS: No - Related Data Allergies/Adverse Reactions: promethazine [From Phenergan] Adverse Reaction (Verified 01/20/19 15:53) PRUITIS Past Medical History - Past Medical History Cardiac Medical History: Reports: Hx Hypertension - GESTATIONAL Neurological Medical History: Reports: Hx Migraine Renal/ Medical History: Denies: Hx Peritoneal Dialysis GI Medical History: Reports: Hx Gastroesophageal Reflux Disease Psychiatric Medical History: Reports: Hx Depression Past Surgical History: Reports: Hx Appendectomy - 2010, Hx Kidney (Renal Surgery) - 1 removed. unsure which one - Immunizations Immunizations up to date: Yes Hx Diphtheria, Pertussis, Tetanus Vaccination: No Physical Exam - Vital signs Vitals: Temp Pulse Resp BP Pulse Ox 98.4 F 88 16 117/62 100 04/08/20 13:34 04/08/20 13:34 04/08/20 13:34 04/08/20 13:34 04/08/20 13:34 Course - Vital Signs Vital signs: Temp Pulse Resp BP Pulse Ox 98.4 F 88 16 117/62 100 04/08/20 13:34 04/08/20 13:34 04/08/20 13:34 04/08/20 13:34 04/08/20 13:34 Doctor's Discharge - Discharge Referrals: FELICE FELTON MD [Primary Care Provider] - Follow up as needed
[2020-04-08] MEDS ORDERED: ONDANSETRON HCL INJ/PF 4 MG/2 ML SDV IV ONE ×2 (16:23→18:16)
[2020-04-08] MEDS ORDERED: NORMAL SALINE 1000 ML 1,000 ML IV ONE (16:23)
--- NOTE | 2020-04-08 16:25 | ER Document Report ---
ED GI/ - General Chief Complaint: Flu Symptoms Stated Complaint: NAUSEA/VOMITING Time Seen by Provider: 04/08/20 13:46 Primary Care Provider: FELICE FELTON MD [ACTIVE STAFF] - Follow up as needed Mode of Arrival: Ambulatory Notes: CHIEF COMPLAINT: Vomiting HPI: There was no triage note by providers or nursing at the time I evaluated the patient. 24-year-old female presenting for evaluation of nausea vomiting over the last for 5 days. No abdominal pain. Subjective low-grade fever at home no dysuria. Patient requesting COVID testing ROS: See HPI - all other systems were reviewed and are otherwise negative Constitutional: Subjective fever Eyes: no drainage, no blurred vision ENT: no runny nose, no sore throat Cardiovascular: no chest pain Resp: no SOB, no cough GI: + vomiting, no diarrhea, no abdominal pain : no dysuria Integumentary: no rash Allergy: no hives Musculoskeletal: no extremity pain or swelling Neurological: no numbness/tingling, no weakness MEDICATIONS: I agree with the patient medications as charted by the RN. ALLERGIES: I agree with the allergies as charted by the RN. PAST MEDICAL HISTORY/PAST SURGICAL HISTORY: Reviewed and agree as charted by RN. SOCIAL HISTORY: Reviewed and agree as charted by RN. FAMILY HISTORY: No significant familial comorbid conditions directly related to patient complaint EXAM: Reviewed vital signs as charted by RN. CONSTITUTIONAL: Alert and oriented and responds appropriately to questions. Well-appearing; well-nourished HEAD: Normocephalic; atraumatic EYES: PERRL; Conjunctivae clear, sclerae non-icteric ENT: normal nose; no rhinorrhea; moist mucous membranes; pharynx without lesions noted, no uvula edema or deviation, no tonsillar hypertrophy, phonation normal NECK: Supple without meningismus; non-tender; no cervical lymphadenopathy, no masses CARD: RRR; no murmurs, no clicks, no rubs, no gallops; symmetric distal pulses RESP: Normal chest excursion without splinting or tachypnea; breath sounds clear and equal bilaterally; no wheezes, no rhonchi, no rales, pulse oximetry 98% on room air not hypoxic ABD/GI: Normal bowel sounds; non-distended; soft, non-tender, no rebound, no guarding; no palpable organomegaly or masses. BACK: The back appears normal and is non-tender to palpation, there is no CVA tenderness EXT: Normal ROM in all joints; non-tender to palpation; no cyanosis, no effusions, no edema SKIN: Normal color for age and race; warm; dry; good turgor; no acute lesions noted NEURO: Moves all extremities equally; Motor and sensory function intact PSYCH: The patient's mood and manner are appropriate. Grooming and personal hygiene are appropriate. MDM: TRAVEL OUTSIDE OF THE [place] IN LAST 30 DAYS: No - Related Data Allergies/Adverse Reactions: promethazine [From Phenergan] Adverse Reaction (Verified 01/20/19 15:53) PRUITIS Past Medical History - General Information source: Patient - Social History Smoking Status: Current Every Day Smoker Frequency of alcohol use: Heavy Drug Abuse: None Family History: Arthritis, DM, Hypertension - Past Medical History Cardiac Medical History: Reports: Hx Hypertension - GESTATIONAL Neurological Medical History: Reports: Hx Migraine Renal/ Medical History: Denies: Hx Peritoneal Dialysis GI Medical History: Reports: Hx Gastroesophageal Reflux Disease Psychiatric Medical History: Reports: Hx Depression Past Surgical History: Reports: Hx Appendectomy - 2009, Hx Kidney (Renal Surgery) - 1 removed. unsure which one - Immunizations Immunizations up to date: Yes Hx Diphtheria, Pertussis, Tetanus Vaccination: No Physical Exam - Vital signs Vitals: Temp Pulse Resp BP Pulse Ox 98.4 F 88 16 117/62 100 04/08/20 13:34 04/08/20 13:34 04/08/20 13:34 04/08/20 13:34 04/08/20 13:34 Course - Re-evaluation Re-evalutation: 04/08/20 18:22 Patient appears to have a urinary tract infection. States nausea is improved. Will give Rocephin in the ER keep patient on Keflex Zofran follow-up PCP she will be considered a person under investigation for COVID-19 at this time pending her results - Vital Signs Vital signs: Temp Pulse Resp BP Pulse Ox 98.4 F 88 16 117/62 100 04/08/20 13:34 04/08/20 13:34 04/08/20 13:34 04/08/20 13:34 04/08/20 13:34 - Laboratory Result Diagrams: 04/08/20 17:00 04/08/20 17:00 Laboratory results interpreted by me: 04/08/20 04/08/20 16:55 17:00 Carbon Dioxide 21 L Calcium 10.3 H Total Protein 8.8 H Albumin 5.3 H Urine Protein 100 H Urine Ketones 80 H Urine Blood MODERATE H Urine Urobilinogen 4.0 H Ur Leukocyte Esterase SMALL H Discharge - Discharge Clinical Impression: Person under investigation for COVID-19 Vomiting Qualifiers: Vomiting type: unspecified Vomiting Intractability: non-intractable Nausea presence: with nausea Qualified Code(s): R11.2 - Nausea with vomiting, unspecified UTI (urinary tract infection) Qualifiers: Urinary tract infection type: acute cystitis Hematuria presence: with hematuria Qualified Code(s): N30.01 - Acute cystitis with hematuria Condition: Stable Disposition: HOME, SELF-CARE Instructions: COVID-19 Guidance for Persons Under Investigation, Urinary Tract Infection ([facility]) Additional Instructions: Take the Keflex to treat the urinary infection. Take Zofran to treat nausea vomiting. Hydrate well at home. You are considered a person under investigati on for COVID-19 at this time pending her test results. Test results may take 2 to 5 days and you should hear from someone at the hospital about your results. Return for any concerns or recurrent or worsening symptoms Prescriptions: Cephalexin Monohydrate [Keflex 500 mg Capsule] 500 mg PO Q6H 7 Days #28 capsule Ondansetron [Zofran Odt 4 mg Tablet] 1 - 2 tab PO Q4H PRN #15 tab.rapdis PRN Reason: For Nausea/Vomiting Forms: Return to Work Referrals: FELICE FELTON MD [ACTIVE STAFF] - Follow up as needed
[2020-04-08 17:39] LABS: ABSOLUTE BASOPHILS # (AUTO) 0.1 10^3/uL (0.0-0.2); ABSOLUTE LYMPHOCYTES (AUTO) 2.5 10^3/uL (0.5-4.7); ABSOLUTE MONOCYTES (AUTO) 0.5 10^3/uL (0.1-1.4); ABSOLUTE NEUT (AUTO) 6.2 10^3/uL (1.7-8.2); BASOPHILS % (AUTO) 0.8 % (0-2); EOSINOPHILS % (AUTO) 0.2 % (0-6); HEMATOCRIT 41.7 % (36.0-47.0); HEMOGLOBIN 14.3 g/dL (12.0-15.5); LYMPHOCYTES % (AUTO) 27.3 % (13-45); MEAN CORPUSCULAR HGB CONC 34.3 g/dL (32.0-36.0); MEAN CORPUSCULAR VOLUME 85 fl (80-97); PLATELET COUNT 384 10^3/uL (150-450); RED BLOOD COUNT 4.94 10^6/uL (3.72-5.28); RED CELL DISTRIBUTION WIDTH 13.2 % (11.5-14.0); SEGMENTED NEUTROPHILS % (AUTO) 66.7 % (42-78); TOTAL CELLS COUNTED % (AUTO) 100 %; WHITE BLOOD COUNT 9.4 10^3/uL (4.0-10.5)
[2020-04-08 17:45] LABS: APPEARANCE,URINE SLIGHTLY-CLOUDY; BILIRUBIN,URINE NEGATIVE (NEGATIVE); GLUCOSE, URINE NEGATIVE (NEGATIVE); KETONES,URINE 80 mg/dL (NEGATIVE); LEUKOCYTE ESTERASE,URINE SMALL (NEGATIVE); NITRITE,URINE NEGATIVE (NEGATIVE); PROTEIN,URINE 100 mg/dL (NEGATIVE); URINE SPECIFIC GRAVITY 1.028
[2020-04-08 17:46] LABS: COLOR,URINE DARK YELLOW
[2020-04-08 17:57] LABS: ALBUMIN 5.3 g/dL (3.5-5.0); ALKALINE PHOSPHATASE 98 U/L (38-126); ANION GAP 19 (5-19); ASPARTATE AMINO TRANSFERASE 24 U/L (14-36); BILIRUBIN,DIRECT 0.4 mg/dL (0.0-0.4); BLOOD UREA NITROGEN 9 mg/dL (7-20); CALCIUM 10.3 mg/dL (8.4-10.2); CARBON DIOXIDE 21 mmol/L (22-30); CHLORIDE 103 mmol/L (98-107); GLUCOSE 93 mg/dL (75-110); NEONATAL BILIRUBIN RESULT 0.6 mg/dL (0.1-1.1); POTASSIUM 3.6 mmol/L (3.6-5.0); TOTAL PROTEIN 8.8 g/dL (6.3-8.2)
[2020-04-08] MEDS ORDERED: CEFTRIAXONE 1 GM/D5W RTU 1 GM/50 ML RTUPB IV ONE (18:16)
[2020-04-08 20:38] VITALS: BP 117/68
== END 2020-04-08 20:45 | disposition home or self-care (01) ==
LOC: ER 13:15
DX: R11.2 Nausea with vomiting, unspecified (principal); N30.01 Acute cystitis with hematuria; F17.200 Nicotine dependence, unspecified, uncomplicated; Z87.19 Personal history of other diseases of the digestive system; Z90.49 Acquired absence of other specified parts of digestive tract; Z90.5 Acquired absence of kidney; Z20.828 Contact with and (suspected) exposure to other viral communicable diseases
CPT/HCPCS: 99284; 96361; 96375; 96365; 36415; 87086; 84703; 85025; 87635; 87088; 80053; 81001; 87186; J2405; J7030; J0696; C9803